=== PATIENT | male | born 1985 | race Caucasian/White ===

== ENCOUNTER 2016-12-03 16:37 | Emergency (ER) | payer OTHER ==
[2016-12-03] MEDS ORDERED: SODIUM CHLORIDE 0.9% 2,000 ML IV ONE (17:31)
[2016-12-03] MEDS ORDERED: KETOROLAC 30 MG/ML 1 ML VIAL IVP STA ×2 (17:31→19:13)
[2016-12-03] MEDS ORDERED: MORPHINE SULFATE 10 MG/ML SYRINGE IV ONE ×2 (17:31→19:13)
[2016-12-03 17:52] LABS: Basophils % (A) 0 %; CH 30.4; CHCM 34.2; Eosinophils # (A) 0.1 k/uL (0-0.7); Eosinophils % (A) 1 %; HCT 47.9 % (39.0-53.0); HDW 2.64; HGB 16.3 gm/dL (13.0-17.5); Luc # (Auto) 0.18; Luc % (Auto) 2; Lymphocytes # (A) 2.7 k/uL (1.0-4.8); Lymphocytes % (A) 31 %; MCH 30.3 pg (25.0-35.0); MCHC 34.1 g/dL (31.0-37.0); MCV 89.1 fL (80.0-100.0); Mean Platelet Volume 6.6; Monocytes # (A) 0.5 k/uL (0-1.0); Monocytes % (A) 5 %; Neutrophils # (A) 5.4 k/uL (1.3-7.7); Neutrophils % (A) 61 %; RBC 5.37 m/uL (4.30-5.90); RDW 13.5 % (11.5-15.5); WBC 8.8 k/uL (3.8-10.6); WBC (Perox) 8.65
[2016-12-03 18:01] LABS: ALT 73 U/L (21-72); AST 42 U/L (17-59); Alkaline Phosphatase 83 U/L (38-126); Anion Gap 13 mmol/L; Blood Urea Nitrogen 14 mg/dL (9-20); Calcium 9.7 mg/dL (8.4-10.2); Carbon Dioxide 21 mmol/L (22-30); Chloride 106 mmol/L (98-107); Glucose 95 mg/dL (74-99); Non-African American GFR(MDRD) >60 (>60 ml/min/1.73 sqM); Potassium 4.3 mmol/L (3.5-5.1); Sodium 140 mmol/L (137-145); Total Bilirubin 0.7 mg/dL (0.2-1.3)
--- NOTE | 2016-12-03 18:09 | ED ---
Abdominal Pain HPI - General Chief Complaint: Abdominal Pain Stated Complaint: Abd Pain Time Seen by Provider: 12/03/16 17:09 Source: patient Mode of arrival: wheelchair Limitations: no limitations - History of Present Illness Initial Comments: Patient is a 31-year-old male who presents with a chief complaint of right sided abdominal pain. His pain started this morning, is gradually gotten worse. Currently the patient says it is a very sharp gnawing type pain. He says that it is made him nauseous and he has vomited once. He cannot identify any inciting incident. Aggravating factors are lying flat, alleviating factors are none. Timing is constant. Patient states he has a history of kidney stones however this feels different. He denies any fevers chills, anorexia, diarrhea. He denies any blood in his urine. - Related Data Home Medications Medication Instructions Recorded Confirmed Ibuprofen [Motrin] 800 mg PO TID 06/23/14 06/27/14 oxyCODONE-APAP 7.5-325MG [Percocet 1 tab PO Q8HR PRN 06/23/14 06/27/14 7.5-325 mg] Allergies Allergy/AdvReac Type Severity Reaction Status Date / Time No Known Allergies Allergy Verified 12/03/16 16:41 Review of Systems ROS Statement: Those systems with pertinent positive or pertinent negative responses have been documented in the HPI. ROS Other: All systems not noted in ROS Statement are negative. Constitutional: Denies: fever Eyes: Denies: vision change ENT: Denies: congestion Respiratory: Denies: cough Cardiovascular: Denies: chest pain Endocrine: Denies: fatigue Gastrointestinal: Reports: abdominal pain, nausea, vomiting. Denies: diarrhea, constipation Genitourinary: Denies: dysuria Musculoskeletal: Denies: back pain Skin: Denies: rash Neurological: Denies: headache Past Medical History Past Medical History: GERD/Reflux, Sleep Apnea/CPAP/BIPAP Additional Past Medical History / Comment(s): DOES NOT USE CPAP. CHRONIC LOWER BACK PAIN, WITH SCIATIC NERVE PAIN. History of Any Multi-Drug Resistant Organisms: None Reported Past Surgical History: No Surgical Hx Reported Additional Past Surgical History / Comment(s): LOCAL ANESTHESIA FOR REMOVAL OF METAL FROM LEFT ARM Past Anesthesia/Blood Transfusion Reactions: No Reported Reaction Additional Past Anesthesia/Blood Transfusion Reaction / Comment(s): HAS NEVER HAD ANESTHESIA Past Psychological History: No Psychological Hx Reported Smoking Status: Current every day smoker Past Alcohol Use History: None Reported Past Drug Use History: None Reported - Past Family History Mother Family Medical History: No Reported History General Exam Limitations: no limitations General appearance: alert, in no apparent distress Head exam: Present: atraumatic, normocephalic Eye exam: Present: normal appearance Respiratory exam: Present: normal lung sounds bilaterally Cardiovascular Exam: Present: regular rate, normal rhythm, normal heart sounds GI/Abdominal exam: Present: soft, tenderness (Right lateral, and right lower quadrant.). Absent: distended Rectal exam: Present: deferred Extremities exam: Present: normal inspection Back exam: Absent: CVA tenderness (R), CVA tenderness (L) Neurological exam: Present: alert, oriented X3, CN II-XII intact, normal gait Psychiatric exam: Present: normal affect, normal mood Skin exam: Present: warm, dry, intact Course Vital Signs 12/03/16 16:39 Temperature 98.1 F Pulse Rate 85 Respiratory 20 Rate Blood Pressure 166/125 O2 Sat by Pulse 100 Oximetry Medical Decision Making - Medical Decision Making Patient presents with a chief complaint of right-sided abdominal pain. On initial evaluation, vital signs are stable. Patient is in no acute distress. He is having significant tenderness to palpation of the right lower quadrant. Patient does not have other symptoms that are congruent with appendicitis though it was considered. Patient does have a history of kidney stones. We'll get a urinalysis, and basic labs. We'll send patient for a noncontrast CT of the abdomen and pelvis. 7:10 PM Laboratory evaluation of this patient is unremarkable. There is no strong evidence of urinary tract infection, there is no elevation in his white count, renal function is stable. Computed tomography scan of the abdomen and pelvis without contrast identifies a 2 mm ureteral stone just distal to the UPJ I discussed care options with the patient, sure decision making was used to determine the patient will be discharged home with prescriptions for pain, and nausea medication. I'll prescribe Flomax. He was instructed that if his pain is not significantly better by this time to mom that he should return to the emergency department for reevaluation. At this time all questions are answered to the best of my ability. Patient is stable for discharge. - Lab Data Result diagrams: 12/03/16 17:15 12/03/16 17:15 Lab Results 12/03/16 12/03/16 12/03/16 Range/Units 17:15 17:15 17:52 WBC 8.8 (3.8-10.6) k/uL RBC 5.37 (4.30-5.90) m/uL Hgb 16.3 (13.0-17.5) gm/dL Hct 47.9 (39.0-53.0) % MCV 89.1 (80.0-100.0) fL MCH 30.3 (25.0-35.0) pg MCHC 34.1 (31.0-37.0) g/dL RDW 13.5 (11.5-15.5) % Plt Count 233 (150-450) k/uL Neutrophils % 61 % Lymphocytes % 31 % Monocytes % 5 % Eosinophils % 1 % Basophils % 0 % Neutrophils # 5.4 (1.3-7.7) k/uL Lymphocytes # 2.7 (1.0-4.8) k/uL Monocytes # 0.5 (0-1.0) k/uL Eosinophils # 0.1 (0-0.7) k/uL Basophils # 0.0 (0-0.2) k/uL Sodium 140 (137-145) mmol/L Potassium 4.3 (3.5-5.1) mmol/L Chloride 106 (98-107) mmol/L Carbon Dioxide 21 L (22-30) mmol/L Anion Gap 13 mmol/L BUN 14 (9-20) mg/dL Creatinine 1.16 (0.66-1.25) mg/dL Est GFR (MDRD) Af Amer >60 (>60 ml/min/1.73 sqM) Est GFR (MDRD) Non-Af >60 (>60 ml/min/1.73 sqM) Glucose 95 (74-99) mg/dL Calcium 9.7 (8.4-10.2) mg/dL Total Bilirubin 0.7 (0.2-1.3) mg/dL AST 42 (17-59) U/L ALT 73 H (21-72) U/L Alkaline Phosphatase 83 (38-126) U/L Total Protein 8.0 (6.3-8.2) g/dL Albumin 4.8 (3.5-5.0) g/dL Urine Color Yellow Urine Appearance Clear (Clear) Urine pH 6.0 (5.0-8.0) Ur Specific [place] 1.017 (1.001-1.035) Urine Protein Trace H (Negative) Urine Glucose (UA) Negative (Negative) Urine Ketones Negative (Negative) Urine Blood Large H (Negative) Urine Nitrite Negative (Negative) Urine Bilirubin Negative (Negative) Urine Urobilinogen <2.0 (<2.0) mg/dL Ur Leukocyte Esterase Negative (Negative) Urine RBC >182 H (0-5) /hpf Urine WBC 5 (0-5) /hpf Ur Squamous Epith Cells <1 (0-4) /hpf Urine Bacteria Rare H (None) /hpf Urine Mucus Rare H (None) /hpf Urine Yeast (Budding) Occasional H (None) /hpf Disposition Clinical Impression: Ureterolithiasis, Hematuria, Abdominal pain Disposition: HOME SELF-CARE Condition: Good Instructions: Ureteral Stones (ED) Referrals: None,Stated [Primary Care Provider] - 1-2 days
[2016-12-03 18:26] LABS: Appearance,Urine Clear (Clear); Bacteria,Urine Rare /hpf; Bilirubin,Urine Negative (Negative); Glucose,Urine (UA) Negative (Negative); Ketones,Urine Negative (Negative); Leukocyte Esterase,Urine Negative (Negative); Mucus,Urine Rare /hpf; Nitrite,Urine Negative (Negative); Particle Count 4294; Protein,Urine Trace (Negative); RBC,Urine >182 /hpf (0-5); Specific Gravity,Urine 1.017 (1.001-1.035); Squamous Epithelial Cell,Urine <1 /hpf (0-4); UA Billing (MACRO vs. MICRO) MICRO; Urobilinogen,Urine <2.0 mg/dL (<2.0); WBC,Urine 5 /hpf (0-5)
--- NOTE | 2016-12-03 18:59 | CT ---
EXAMINATION TYPE: CT renal stones wo con DATE OF EXAM: 12/03/2016 COMPARISON: NONE HISTORY: Right lower quadrant pain. CT DLP: 1052.70 mGycm Examination of the solid and hollow viscera is limited given the lack of contrast. FINDINGS: LUNG BASES: No evidence for nodule. No evidence for infiltrate. LIVER/GB: L stone is noted. No space-occupying hepatic lesion. PANCREAS: No pancreatic mass identified. No inflammatory process seen. SPLEEN: No evidence for splenomegaly. No intrasplenic lesions seen. ADRENALS: No adrenal nodules identified. No evidence for thickening. KIDNEYS: 2 mm obstructing calculus proximal right ureter just distal to the UPJ. There is mild associ ated hydronephrosis. No additional calculi identified. BOWEL: Appendix has a normal appearance. No evidence of bowel obstruction. No inflammatory process. Lymph nodes: No evidence for adenopathy greater than 1 cm. Abdominal aorta: Atheromatous changes seen. No evidence for aneurysm. Genital organs: No significant abnormality. Other: No significant abnormality. IMPRESSION: 2 mm obstructing calculus proximal right ureter just distal to the UPJ. There is mild associated hydr onephrosis.
[2016-12-03] MEDS ORDERED: ONDANSETRON 4 MG/2 ML VIAL IVP STA (19:13)
[2016-12-03 20:21] VITALS: BP 150/100; PULSE 79; RESP 16; TEMP 98
== END 2016-12-03 20:19 | disposition home or self-care (01) ==
LOC: EC 16:37
DX: N20.1 Calculus of ureter (principal); G89.29 Other chronic pain; F17.200 Nicotine dependence, unspecified, uncomplicated; Z79.1 Long term (current) use of non-steroidal anti-inflammatories (NSAID); Z87.442 Personal history of urinary calculi
CPT/HCPCS: 99284 ×2; 96374 ×2; 96375 ×3; 96376 ×2; 96361 ×3; 36415; 80053; 85025; 81001; 74150; J2270; J2405; J1885

== ENCOUNTER → 2017-01-07 | Outpatient (CLI) | payer OTHER ==
--- NOTE | 2017-01-07 14:24 | MR ---
EXAMINATION TYPE: MR lumbar spine wo/w con DATE OF EXAM: 01/07/2017 COMPARISON: 05/02/2014 HISTORY: [place] rt side TECHNIQUE: Multiplanar, multisequence images of the lumbar spine were acquired utilizing 13 mL intravenous Gadav ist gadolinium contrast. T12-L1: Left eccentric broad-based disc bulge is seen with disc desiccation and Schmorl's node of the superior endplate of L1. Neural foramen and spinal canal are patent. L1-L2: Disc desiccation and a small broad-based disc bulge. No disc herniation. No canal stenosis i s present. Foramina are patent bilaterally. L2-L3: There is a small broad-based disc bulge with flattening of the usual disc posterior convexity and mild ligament of flavum buckling. No neural foraminal narrowing or spinal canal stenosis. L3-L4: There is a slightly left eccentric broad-based disc bulge creating mild left neural foraminal narrowing. Right neural foramen remains patent as is the spinal canal. Ligamentum flavum buckling is mild. L4-L5: There is a small broad-based disc bulge, mild facet arthropathy, and mild ligamentum flavum bu ckling without neural foraminal narrowing or spinal canal stenosis. L5-S1: There is redemonstration of a large central disc herniation superimposed upon a right eccentri c broad-based disc bulge with central annular tear and minimal mass effect upon the ventral thecal sa c. This results in mild spinal canal stenosis and moderate bilateral neural foraminal narrowing abutt ing both exiting L5 nerve roots. Forming S1 nerve roots appear unaffected. There has been partial dis cectomy of the right paracentral previously seen extruded disc material. Lumbar vertebral bodies maintain normal vertebral body heights and alignment. Reactive marrow changes seen of the L1 vertebral body from Schmorl's node formation. Otherwise bone marrow is within normal limits. There is no abnormal postcontrast enhancement. No evidence of epidural fibrosis. Disc herniat ion at L5-S1 does minimally enhance on axial images. IMPRESSION: 1. Resection of the previously seen extruded portion of a right paracentral disc herniation at L5-S1 comparison to the prior exam with residual central disc herniation creating mild spinal canal stenosi s and moderate bilateral neural foraminal narrowing. No evidence of epidural fibrosis. 2. Multilevel degenerative disc disease, similar to the prior exam and mild in degree.
== END | disposition home or self-care (01) ==
LOC: RADMRIMAIN 10:39
PROVIDERS: ATTEND Physician Assistant Medical
DX: M48.061 Spinal stenosis, lumbar region without neurogenic claudication (principal); M99.73 Connective tissue and disc stenosis of intervertebral foramina of lumbar region; M51.36 Other intervertebral disc degeneration, lumbar region; M51.27 Other intervertebral disc displacement, lumbosacral region; M54.31 Sciatica, right side
CPT/HCPCS: 72158; A9581

== ENCOUNTER → 2018-03-10 | Outpatient (CLI) | payer OTHER ==
--- NOTE | 2018-03-10 11:50 | XR ---
EXAMINATION TYPE: XR wrist complete LT DATE OF EXAM: 03/10/2018 CLINICAL HISTORY: No known injury. Anterior proximal forearm pain. TECHNIQUE: Frontal, lateral and oblique images of the left wrist are obtained. COMPARISON: None FINDINGS: There is no acute fracture/dislocation evident in the left wrist. The joint spaces in the left wrist appear within normal limits. The overlying soft tissue appears unremarkable. IMPRESSION: There is no acute fracture or dislocation in the left wrist. MRI could evaluate the liga ments and tendons if there is further concern.
--- NOTE | 2018-03-10 12:29 | XR ---
EXAMINATION TYPE: XR cervical spine comp DATE OF EXAM: 03/10/2018 TECHNIQUE: Frontal, lateral, oblique, swimmers, and open mouth view of the cervical spine are adame dAby HISTORY: [id number] COMPARISON: None FINDINGS: The cervical spine is visualized in its entirety from C1 thru the top of T1 level, it is s atisfactory in alignment without evidence of acute fracture or dislocation. The pre-vertebral soft t issue appears within normal limits. The C1-C2 articulation is within normal limits on the open mouth view. There are small anterior osteophytes at C5 and C6. There is slight straightening of the usual cervica l lordosis. Oblique images demonstrate no evidence of radiographic neural foraminal narrowing. IMPRESSION: No acute fracture or dislocation is seen in the cervical spine. Minimal degenerative traci nges at C5 and C6. No neural foraminal narrowing radiographically. However given the patient's sympto ms MRI could evaluate for disc herniation.
== END ==
LOC: RADXRYALE 11:09
PROVIDERS: ATTEND Physician Assistant Medical
DX: M47.812 Spondylosis without myelopathy or radiculopathy, cervical region (principal); M25.532 Pain in left wrist
CPT/HCPCS: 72050

== ENCOUNTER → 2018-03-26 | Outpatient (CLI) | payer OTHER ==
--- NOTE | 2018-03-26 08:52 | MR ---
MRI CERVICAL SPINE: CLINICAL HISTORY: Cervicalgia and left arm pain per order. Headache with upper back pain causing left arm numbness and pain or weakness in both arms per patient. TECHNIQUE: Multiplanar, multisequence imaging of the cervical spine is performed without IV contrast. COMPARISON: Cervical spine x-ray March 10, 2018 FINDINGS: Sagittal images of the cervical spine show the craniocervical junction to appear within nor mal limits. The cervical and upper thoracic spinal cord is normal in course, caliber, and signal. Th ere is slight grade 1 retrolisthesis of 5 and C5 on C6. The vertebral body heights are normal. Ther e is multilevel disc desiccation with mild disc space narrowing C4-C5 and C5-C6 levels posterior disc herniations are seen at these levels as well as at C6-C7 level effacing anterior thecal sac on sagit beth images. The bone marrow signal intensity is within normal limits. There is partial visualization of loss of aeration posterior inferior right maxillary sinus favoring eccentric mucosal thickening sa gittal image 3. Axial images show the C2-C3 level to appear within normal limits. Axial images at C3-C4 level show broad-based posterior disc protrusion causing asymmetric mild right greater than left bilateral neural foraminal narrowing. There is right paracentral protrusion compone nt effacing anterior thecal sac on axial image 47. Axial images at the C4-C5 level show broad-based left paracentral disc protrusion effacing anterolate ral thecal sac, there is mild bilateral neural foraminal narrowing noted. Axial images at C5-C6 level show broad-based posterior disc protrusion effacing anterior thecal sac u p to ventral surface of spinal cord, there is fairly advanced left-sided neural foraminal narrowing a nd [id number] right-sided neural foraminal narrowing noted. Axial images at the C6-C7 level show small lobulated posterior disc protrusion effacing anterior thec al sac, bilateral neural foramina are patent. Axial images at C7-T1 level are felt within normal limits. IMPRESSION: Multilevel degenerative changes in the cervical spine as detailed above, most prominent h erniation is noted C5-C6 level.
== END | disposition home or self-care (01) ==
LOC: RADMRIMAIN 07:42
PROVIDERS: ATTEND Physician Assistant Medical
DX: M50.222 Other cervical disc displacement at C5-C6 level (principal); M47.812 Spondylosis without myelopathy or radiculopathy, cervical region; M79.602 Pain in left arm
CPT/HCPCS: 72141

== ENCOUNTER 2018-05-22 07:26 | Emergency (ER) | payer OTHER ==
[2018-05-22 07:35] VITALS: RESP 18
[2018-05-22] MEDS ORDERED: MORPHINE SULFATE 4 MG/ML SYRINGE IV STA (07:51)
[2018-05-22] MEDS ORDERED: ONDANSETRON 4 MG/2 ML VIAL IVP STA (07:51)
[2018-05-22] MEDS ORDERED: SODIUM CHLORIDE 0.9% 1,000 ML IV STA (07:51)
--- NOTE | 2018-05-22 07:55 | ED ---
General Adult HPI - General Chief complaint: Abdominal Pain Stated complaint: Flank pain/vomiting Time Seen by Provider: 05/22/18 07:46 Source: patient Mode of arrival: ambulatory Limitations: no limitations - History of Present Illness Initial comments: Dictation was produced using [employer] dictation software. please excuse any grammatical, word or spelling errors. Chief Complaint: 32-year-old male past medical history of sleep apnea, GERD presents with right lower quadrant abdominal pain. History of Present Illness: 32-year-old male past medical history of cervical and lumbar myelopathy. Patient reports that since yesterday he started off having some feelings of constipation and periumbilical pain. He states that last night his pain got progressively worse radiating down to his right lower quadrant. Patient denies any history of abdominal surgery. Denies any nausea or vomiting. No fever, chills or night sweats. States the pain is severe. Patient does have a history of nephrolithiasis however he states his pain is usually not this severe. The ROS documented in this emergency department record has been reviewed and confirmed by me. Those systems with pertinent positive or negative responses have been documented in the HPI. All other systems are other negative and/or noncontributory. PHYSICAL EXAM: General Impression: Alert and oriented x3, acute distress secondary to pain HEENT: Normocephalic atraumatic, extra-ocular movements intact, pupils equal and reactive to light bilaterally, mucous membranes moist. Cardiovascular: Heart regular rate and rhythm, S1&S2 audible, no murmurs, rubs or gallops Chest: Lungs clear to auscultation bilaterally, no rhonchi, no wheeze, no rales Abdomen: Hypoactive bowel sounds, regular quadrant tenderness at McBurney's point, positive rebound tenderness. Musculoskeletal: Pulses present and equal in all extremities, no peripheral edema Motor: no focal deficits noted Neurological: CN II-XII grossly intact, no focal motor or sensory deficits noted Skin: Intact with no visualized rashes ED course: 32-year-old male presents with chief complaint of abdominal pain. Vital signs upon arrival are within acceptable limits. There is strong clinical suspicion of acute appendicitis versus nephrolithiasis. Laboratory evaluation obtained. CBC, metabolic panel is unremarkable. Urinalysis is positive for red blood cells. There are a few white cells. Urine culture sent. Patient given IV analgesia and IV fluids. Computed tomography scan of the abdomen and pelvis was obtained. There is a gallstone and a 2 mm calculus at the level of the Right Ureter Causing Mild Hydronephrosis. Appendix Is Visualized and Appears Normal. Patient's Clinical Presentation Consistent with Obstructing nephrolithiasis. Patient reevaluated and has improvement of symptoms. Is likely the patient just passed a stone. Patient given urinary hat . He is given prescription for by mouth analgesia. Patient given referral to urology. Advised to follow up. - Related Data Home Medications Medication Instructions Recorded Confirmed Gabapentin [Neurontin] 300 mg PO HS 05/22/18 05/22/18 HYDROcodone/APAP 10-325MG [[place] 1 tab PO Q6HR PRN 05/22/18 05/22/18 10-325] Losartan Potassium 50 mg PO HS 05/22/18 05/22/18 Multivitamins, Thera [Multivitamin 1 tab PO DAILY 05/22/18 05/22/18 (formulary)] Previous Rx's Medication Instructions Recorded Ketorolac [Toradol] 30 mg IM Q6H PRN #12 vial 05/22/18 Allergies Allergy/AdvReac Type Severity Reaction Status Date / Time No Known Allergies Allergy Verified 05/22/18 08:11 Review of Systems ROS Statement: Those systems with pertinent positive or pertinent negative responses have been documented in the HPI. ROS Other: All systems not noted in ROS Statement are negative. Past Medical History Past Medical History: GERD/Reflux, Sleep Apnea/CPAP/BIPAP Additional Past Medical History / Comment(s): DOES NOT USE CPAP. CHRONIC LOWER BACK PAIN, WITH SCIATIC NERVE PAIN. History of Any Multi-Drug Resistant Organisms: None Reported Past Surgical History: No Surgical Hx Reported Additional Past Surgical History / Comment(s): LOCAL ANESTHESIA FOR REMOVAL OF METAL FROM LEFT ARM Past Anesthesia/Blood Transfusion Reactions: No Reported Reaction Additional Past Anesthesia/Blood Transfusion Reaction / Comment(s): HAS NEVER HAD ANESTHESIA Past Psychological History: No Psychological Hx Reported Smoking Status: Current every day smoker Past Alcohol Use History: None Reported Past Drug Use History: None Reported - Past Family History Mother Family Medical History: No Reported History General Exam Limitations: no limitations Course Vital Signs 05/22/18 07:32 Temperature 98.1 F Pulse Rate 80 Respiratory 18 Rate Blood Pressure 158/107 O2 Sat by Pulse 99 Oximetry Medical Decision Making - Lab Data Result diagrams: 05/22/18 08:14 05/22/18 08:14 Lab Results 05/22/18 05/22/18 05/22/18 Range/Units 08:14 08:14 08:14 WBC 8.3 (3.8-10.6) k/uL RBC 5.02 (4.30-5.90) m/uL Hgb 14.4 (13.0-17.5) gm/dL Hct 44.0 (39.0-53.0) % MCV 87.8 (80.0-100.0) fL MCH 28.8 (25.0-35.0) pg MCHC 32.8 (31.0-37.0) g/dL RDW 13.8 (11.5-15.5) % Plt Count 214 (150-450) k/uL Neutrophils % 51 % Lymphocytes % 38 % Monocytes % 7 % Eosinophils % 1 % Basophils % 1 % Neutrophils # 4.3 (1.3-7.7) k/uL Lymphocytes # 3.1 (1.0-4.8) k/uL Monocytes # 0.6 (0-1.0) k/uL Eosinophils # 0.1 (0-0.7) k/uL Basophils # 0.1 (0-0.2) k/uL Sodium 142 (137-145) mmol/L Potassium 4.0 (3.5-5.1) mmol/L Chloride 104 (98-107) mmol/L Carbon Dioxide 28 (22-30) mmol/L Anion Gap 10 mmol/L BUN 17 (9-20) mg/dL Creatinine 1.09 (0.66-1.25) mg/dL Est GFR (CKD-EPI)AfAm >90 (>60 ml/min/1.73 sqM) Est GFR (CKD-EPI)NonAf 88 (>60 ml/min/1.73 sqM) Glucose 139 H (74-99) mg/dL Plasma Lactic Acid Javier 1.5 (0.7-2.0) mmol/L Calcium 10.1 (8.4-10.2) mg/dL Total Bilirubin 0.7 (0.2-1.3) mg/dL AST 36 (17-59) U/L ALT 58 (21-72) U/L Alkaline Phosphatase 66 (38-126) U/L Total Protein 7.7 (6.3-8.2) g/dL Albumin 4.5 (3.5-5.0) g/dL Lipase 67 (23-300) U/L Urine Color Urine Appearance (Clear) Urine pH (5.0-8.0) Ur Specific [place] (1.001-1.035) Urine Protein (Negative) Urine Glucose (UA) (Negative) Urine Ketones (Negative) Urine Blood (Negative) Urine Nitrite (Negative) Urine Bilirubin (Negative) Urine Urobilinogen (<2.0) mg/dL Ur Leukocyte Esterase (Negative) Urine RBC (0-5) /hpf Urine WBC (0-5) /hpf Ur Squamous Epith Cells (0-4) /hpf Urine Bacteria (None) /hpf Urine Mucus (None) /hpf Urine Yeast (Budding) (None) /hpf 05/22/18 Range/Units 08:14 WBC (3.8-10.6) k/uL RBC (4.30-5.90) m/uL Hgb (13.0-17.5) gm/dL Hct (39.0-53.0) % MCV (80.0-100.0) fL MCH (25.0-35.0) pg MCHC (31.0-37.0) g/dL RDW (11.5-15.5) % Plt Count (150-450) k/uL Neutrophils % % Lymphocytes % % Monocytes % % Eosinophils % % Basophils % % Neutrophils # (1.3-7.7) k/uL Lymphocytes # (1.0-4.8) k/uL Monocytes # (0-1.0) k/uL Eosinophils # (0-0.7) k/uL Basophils # (0-0.2) k/uL Sodium (137-145) mmol/L Potassium (3.5-5.1) mmol/L Chloride (98-107) mmol/L Carbon Dioxide (22-30) mmol/L Anion Gap mmol/L BUN (9-20) mg/dL Creatinine (0.66-1.25) mg/dL Est GFR (CKD-EPI)AfAm (>60 ml/min/1.73 sqM) Est GFR (CKD-EPI)NonAf (>60 ml/min/1.73 sqM) Glucose (74-99) mg/dL Plasma Lactic Acid Javier (0.7-2.0) mmol/L Calcium (8.4-10.2) mg/dL Total Bilirubin (0.2-1.3) mg/dL AST (17-59) U/L ALT (21-72) U/L Alkaline Phosphatase (38-126) U/L Total Protein (6.3-8.2) g/dL Albumin (3.5-5.0) g/dL Lipase (23-300) U/L Urine Color Light Red Urine Appearance Cloudy (Clear) Urine pH 5.5 (5.0-8.0) Ur Specific [place] 1.023 (1.001-1.035) Urine Protein 1+ H (Negative) Urine Glucose (UA) Negative (Negative) Urine Ketones Trace H (Negative) Urine Blood Large H (Negative) Urine Nitrite Negative (Negative) Urine Bilirubin Negative (Negative) Urine Urobilinogen <2.0 (<2.0) mg/dL Ur Leukocyte Esterase Negative (Negative) Urine RBC >182 H (0-5) /hpf Urine WBC 18 H (0-5) /hpf Ur Squamous Epith Cells <1 (0-4) /hpf Urine Bacteria Many H (None) /hpf Urine Mucus Occasional H (None) /hpf Urine Yeast (Budding) Few H (None) /hpf Disposition Clinical Impression: Kidney stone Disposition: HOME SELF-CARE Condition: Good Instructions (If sedation given, give patient instructions): Kidney Stones (ED) Prescriptions: Ketorolac [Toradol] 30 mg IM Q6H PRN #12 vial PRN Reason: Pain Is patient prescribed a controlled substance at d/c from ED?: No Referrals: Benjy Guzman MD [STAFF PHYSICIAN] - 1-2 days Time of Disposition: 10:01
[2018-05-22 08:40] LABS: RBC 5.02 m/uL (4.30-5.90); WBC 8.3 k/uL (3.8-10.6)
[2018-05-22 08:41] LABS: Basophils # (A) 0.1 k/uL (0-0.2); Basophils % (A) 1 %; Eosinophils # (A) 0.1 k/uL (0-0.7); Eosinophils % (A) 1 %; HGB 14.4 gm/dL (13.0-17.5); Lymphocytes # (A) 3.1 k/uL (1.0-4.8); Lymphocytes % (A) 38 %; MCH 28.8 pg (25.0-35.0); MCHC 32.8 g/dL (31.0-37.0); MCV 87.8 fL (80.0-100.0); Mean Platelet Volume 6.7; Monocytes # (A) 0.6 k/uL (0-1.0); Monocytes % (A) 7 %; Neutrophils # (A) 4.3 k/uL (1.3-7.7); Neutrophils % (A) 51 %; Platelet Count 214 k/uL (150-450); RDW 13.8 % (11.5-15.5)
[2018-05-22 08:54] LABS: Albumin 4.5 g/dL (3.5-5.0); Blood Urea Nitrogen 17 mg/dL (9-20); Calcium 10.1 mg/dL (8.4-10.2); Chloride 104 mmol/L (98-107); Glucose 139 mg/dL (74-99); Sodium 142 mmol/L (137-145); Total Protein 7.7 g/dL (6.3-8.2)
[2018-05-22 08:57] LABS: Appearance,Urine Cloudy (Clear); Bacteria,Urine Many /hpf; Bilirubin,Urine Negative (Negative); Blood,Urine Large (Negative); Budding Yeast,Urine Few /hpf; Color,Urine Light Red; Glucose,Urine (UA) Negative (Negative); Ketones,Urine Trace (Negative); Leukocyte Esterase,Urine Negative (Negative); Mucus,Urine Occasional /hpf; Nitrite,Urine Negative (Negative); PH, Urine 5.5 (5.0-8.0); Protein,Urine 1+ (Negative); RBC,Urine >182 /hpf (0-5); Specific Gravity,Urine 1.023 (1.001-1.035); Squamous Epithelial Cell,Urine <1 /hpf (0-4); Urobilinogen,Urine <2.0 mg/dL (<2.0)
[2018-05-22] MEDS ORDERED: MORPHINE SULFATE 4 MG/ML SYRINGE IVP STA (08:57)
[2018-05-22 09:02] LABS: ALT 58 U/L (21-72); AST 36 U/L (17-59); Alkaline Phosphatase 66 U/L (38-126); Anion Gap 10 mmol/L; Carbon Dioxide 28 mmol/L (22-30); Lipase 67 U/L (23-300); Total Bilirubin 0.7 mg/dL (0.2-1.3)
--- NOTE | 2018-05-22 09:12 | CT ---
EXAMINATION TYPE: CT abdomen pelvis w con DATE OF EXAM: 05/22/2018 REFERENCE: Previous study dated 12/03/2016 HISTORY: abdominal pain HISTORY: RLQ pain, nausea, vomiting, diarrhea, constipation. REFERENCE: NONE CT DLP: 1054.4 mGy Automated exposure control for dose reduction was used. TECHNIQUE: Helical acquisition through the abdomen and pelvis was obtained following the oral ingesti on of without Oral Contrast and following intravenous administration of 100 mL of Isovue 300. The latrice a was reformatted in axial, coronal and sagittal projections. Delayed images were not obtained due to the patient's urgency to urinate. FINDINGS: There is dependent atelectasis in the dependent portions of the lungs. There is no pleural or pericardial fluid. The heart is not enlarged. Within the abdomen, the liver is prominent measuring 18.6 cm. It is low in attenuation and likely fat ty infiltrated. The spleen is unremarkable. There is a 1.4 cm gallstone present within the gallbladde r. Both adrenal glands are normal. Both kidneys demonstrate function. There is mild right-sided hydronephrosis. There is a questionable 1 mm calculus at the level of the trigone of the bladder on the right. The pancreas is unremarkable. There is no significant retroperitoneal, iliac or inguinal adenopathy. The bladder is not distended. There is some thickening of the left side of the colon. The appendix is normal. Small bowel loops are normal. There is no free fluid and no free air identified. No bony lesion is seen. IMPRESSION: 1. 1 TO 2 MM CALCULUS AT THE LEVEL OF THE TRIGONE OF THE BLADDER ON THE RIGHT CAUSING MILD HYDRONEPHR OSIS ON THE RIGHT. 2. MILD HEPATOMEGALY AND FATTY INFILTRATION OF THE LIVER. 3. THICKENING OF THE LEFT SIDE OF THE COLON. PLEASE CORRELATE FOR COLITIS. 4. CHOLELITHIASIS.
[2018-05-22] MEDS ORDERED: KETOROLAC 30 MG/ML 1 ML VIAL IVP STA (09:23)
[2018-05-22 10:36] VITALS: BP 140/96; PULSE 91; TEMP 98
== END 2018-05-22 10:25 | disposition home or self-care (01) ==
LOC: SUPCPDRO 07:26 → EC 07:26
DX: N13.2 Hydronephrosis with renal and ureteral calculous obstruction (principal); K80.20 Calculus of gallbladder without cholecystitis without obstruction; G89.29 Other chronic pain; F17.200 Nicotine dependence, unspecified, uncomplicated; Z79.899 Other long term (current) drug therapy; Z87.19 Personal history of other diseases of the digestive system
CPT/HCPCS: 36415; 80053; 83605; 83690; 85025; 81001; 87086; 74177; 99284; 96374; 96375 ×2; 96376; 96361 ×2; J2270; J2405; J1885; Q9967

== ENCOUNTER 2019-01-02 14:23 | Emergency (ER) | payer OTHER ==
[2019-01-02 14:45] VITALS: TEMP 98
[2019-01-02] MEDS ORDERED: TOBRAMYCIN 0.3% OPHTH DROPS 5 ML BTL LEFT EYE STA (14:48)
[2019-01-02] MEDS ORDERED: PROPARACAINE 0.5% OPHTH DROPS 15 ML BTL LEFT EYE STA (14:48)
--- NOTE | 2019-01-02 14:59 | ED ---
Eye Problem HPI - General Chief complaint: Eye Problems Stated complaint: Eye injury Time Seen by Provider: 01/02/19 14:48 Source: patient, RN notes reviewed Mode of arrival: ambulatory Limitations: no limitations - History of Present Illness Initial comments: 33-year-old male presents emergency Department chief complaint left eye pain. Patient states that he was walking and states he cat tail poked in his left eye. Patient states that slowly become more irritated. Patient's tetanus is up-to-date. Denies any blurred vision but states that it's very sensitive, tearing. He does not take any medications for it. Denies any fevers or chills. Denies any prior ocular issues. - Related Data Home Medications Medication Instructions Recorded Confirmed Gabapentin [Neurontin] 300 mg PO HS 05/22/18 05/22/18 HYDROcodone/APAP 10-325MG [[place] 1 tab PO Q6HR PRN 05/22/18 05/22/18 10-325] Losartan Potassium 50 mg PO HS 05/22/18 05/22/18 Multivitamins, Thera [Multivitamin 1 tab PO DAILY 05/22/18 05/22/18 (formulary)] Previous Rx's Medication Instructions Recorded Ketorolac [Toradol] 30 mg IM Q6H PRN #12 vial 05/22/18 Allergies Allergy/AdvReac Type Severity Reaction Status Date / Time No Known Allergies Allergy Verified 01/02/19 14:41 Review of Systems ROS Statement: Those systems with pertinent positive or pertinent negative responses have been documented in the HPI. ROS Other: All systems not noted in ROS Statement are negative. Past Medical History Past Medical History: GERD/Reflux, Sleep Apnea/CPAP/BIPAP Additional Past Medical History / Comment(s): DOES NOT USE CPAP. CHRONIC LOWER BACK PAIN, WITH SCIATIC NERVE PAIN. History of Any Multi-Drug Resistant Organisms: None Reported Past Surgical History: No Surgical Hx Reported Additional Past Surgical History / Comment(s): LOCAL ANESTHESIA FOR REMOVAL OF M ETAL FROM LEFT ARM Past Anesthesia/Blood Transfusion Reactions: No Reported Reaction Additional Past Anesthesia/Blood Transfusion Reaction / Comment(s): HAS NEVER HAD ANESTHESIA Past Psychological History: No Psychological Hx Reported Smoking Status: Current every day smoker Past Alcohol Use History: None Reported Past Drug Use History: None Reported - Past Family History Mother Family Medical History: No Reported History General Exam Limitations: no limitations General appearance: alert, in no apparent distress Head exam: Present: atraumatic, normocephalic, normal inspection Eye exam: Present: normal appearance, PERRL, EOMI, conjunctival injection (Moderate left), other (Patient had relief of symptoms with proparacaine drops. Fluorescein uptake with Wood's lamp noted in the central corneal region). Absent: scleral icterus, periorbital swelling ENT exam: Present: normal exam, normal oropharynx, mucous membranes moist, TM's normal bilaterally Neck exam: Present: normal inspection, full ROM. Absent: tenderness, m eningismus, lymphadenopathy Respiratory exam: Present: normal lung sounds bilaterally. Absent: respiratory distress, wheezes, rales, rhonchi, stridor Cardiovascular Exam: Present: regular rate, normal rhythm, normal heart sounds. Absent: systolic murmur, diastolic murmur, rubs, gallop, clicks Course Vital Signs 01/02/19 14:42 Temperature 98.0 F Pulse Rate 97 Respiratory 16 Rate Blood Pressure 151/96 O2 Sat by Pulse 98 Oximetry Medical Decision Making - Medical Decision Making Patient is a large corneal abrasion. Patient did have relief with proparacaine. Patient advised to stay in a dark environment. Patient will follow-up with admin dir tomorrow. Tetanus up-to-date. Patient was started Tobrex eye drops Disposition Clinical Impression: Corneal abrasion Disposition: HOME SELF-CARE Condition: Stable Instructions (If sedation given, give patient instructions): Corneal Abrasion (ED) Additional Instructions: Please return to the Emergency Department if symptoms worsen or any other concerns. Use Tobrex eyedrops 1 drop to left eye every 4 hours while awake Is patient prescribed a controlled substance at d/c from ED?: No Referrals: Ariel Castellon DO [Primary Care Provider] - 1-2 days Aleah Cook MD [STAFF PHYSICIAN] - 1-2 days Time of Disposition: 15:10
[2019-01-02] MEDS ORDERED: ACET/COD 300 MG/30 MG STARTER PACK 6 TAB BTL PO STA (15:07)
[2019-01-02] MEDS ORDERED: IBUPROFEN 600 MG TAB PO STA (15:07)
[2019-01-02 15:44] VITALS: BP 141/92; PULSE 87; RESP 18
== END 2019-01-02 15:44 | disposition home or self-care (01) ==
LOC: EC 14:23
DX: S05.02XA Injury of conjunctiva and corneal abrasion without foreign body, left eye, initial encounter (principal); G47.30 Sleep apnea, unspecified; F17.200 Nicotine dependence, unspecified, uncomplicated; Z79.899 Other long term (current) drug therapy; W55.09XA Other contact with cat, initial encounter; Y93.01 Activity, walking, marching and hiking
CPT/HCPCS: 99283

== ENCOUNTER 2019-01-20 23:11 | Emergency (ER) | payer OTHER ==
[2019-01-20] MEDS ORDERED: PROPARACAINE 0.5% OPHTH DROPS 15 ML BTL LEFT EYE STA (23:19)
--- NOTE | 2019-01-21 00:23 | ED ---
General Adult HPI - General Source: patient Mode of arrival: ambulatory Limitations: no limitations <Khadar Nick - Last Filed: 01/21/19 00:21> <Akua Fitzgerald - Last Filed: 01/21/19 02:19> - General Chief complaint: Recheck/Abnormal Lab/Rx Stated complaint: L Eye Pain Time Seen by Provider: 01/20/19 23:16 - History of Present Illness Initial comments: Patient is a 33-year-old male presenting to the emergency department with a chief complaint of left eye pain. Patient was seen in the ED 2 weeks ago and diagnosed with a corneal abrasion. Patient was prescribed tobramycin drops. Patient reports she finished a medication as directed but about 3 days ago he began developing pain in the upper eyelid. Patient reports he has difficulty opening his eyelid in the morning but denies any discharge. Patient states there is some blurry vision as well. 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 Patient reports there is pain behind the eye. Patient does report some pain with extraocular movements. (Khadar Nick) - Related Data Home Medications Medication Instructions Recorded Confirmed Gabapentin [Neurontin] 300 mg PO HS 05/22/18 05/22/18 HYDROcodone/APAP 10-325MG [[place] 1 tab PO Q6HR PRN 05/22/18 05/22/18 10-325] Losartan Potassium 50 mg PO HS 05/22/18 05/22/18 Multivitamins, Thera [Multivitamin 1 tab PO DAILY 05/22/18 05/22/18 (formulary)] Previous Rx's Medication Instructions Recorded Ketorolac [Toradol] 30 mg IM Q6H PRN #12 vial 05/22/18 Cephalexin [Keflex] 500 mg PO Q6HR 7 Days #28 cap 01/21/19 Propylene Glycol/Peg 400/Pf 1 dropper LEFT EYE Q6H #60 dropper 01/21/19 [Systane 0.3-0.4% Eye Drops] Allergies Allergy/AdvReac Type Severity Reaction Status Date / Time No Known Allergies Allergy Verified 01/20/19 23:12 Review of Systems ROS Other: All systems not noted in ROS Statement are negative. <Khadar Nick - Last Filed: 01/21/19 00:21> ROS Other: All systems not noted in ROS Statement are negative. <Akua Fitzgerald - Last Filed: 01/21/19 02:19> ROS Statement: Those systems with pertinent positive or pertinent negative responses have been documented in the HPI. Past Medical History Past Medical History: GERD/Reflux, Sleep Apnea/CPAP/BIPAP Additional Past Medical History / Comment(s): DOES NOT USE CPAP. CHRONIC LOWER BACK PAIN, WITH SCIATIC NERVE PAIN. History of Any Multi-Drug Resistant Organisms: None Reported Past Surgical History: No Surgical Hx Reported Additional Past Surgical History / Comment(s): LOCAL ANESTHESIA FOR REMOVAL OF METAL FROM LEFT ARM Past Anesthesia/Blood Transfusion Reactions: No Reported Reaction Additional Past Anesthesia/Blood Transfusion Reaction / Comment(s): HAS NEVER HAD ANESTHESIA Past Psychological History: No Psychological Hx Reported Smoking Status: Current every day smoker Past Alcohol Use History: None Reported Past Drug Use History: None Reported - Past Family History Mother Family Medical History: No Reported History <Khadar Nick - Last Filed: 01/21/19 00:21> General Exam Limitations: no limitations General appearance: alert, in no apparent distress Head exam: Present: atraumatic, normocephalic, normal inspection Eye exam: Present: normal appearance, PERRL, EOMI, conjunctival injection (Mild conjunctival injection in the left eye), periorbital swelling (Mild swelling in the upper eyelid. No foreign body detected.), other (Fluorescent stain is showing a central corneal abrasion directly over the visual field.). Absent: scleral icterus, nystagmus, periorbital tenderness Pupils: Present: normal accommodation ENT exam: Present: normal exam, normal oropharynx, mucous membranes moist Neck exam: Present: normal inspection, full ROM Respiratory exam: Present: normal lung sounds bilaterally Cardiovascular Exam: Present: regular rate, normal rhythm, normal heart sounds Extremities exam: Present: normal inspection, full ROM Back exam: Present: normal inspection, full ROM Neurological exam: Present: alert, oriented X3 Psychiatric exam: Present: normal affect, normal mood Skin exam: Present: warm, dry, intact, normal color <Khadar Nick - Last Filed: 01/21/19 00:21> Course Vital Signs 01/20/19 23:12 Temperature 98.4 F Pulse Rate 84 Respiratory 18 Rate Blood Pressure 159/98 O2 Sat by Pulse 97 Oximetry Medical Decision Making <Akua Fitzgerald - Last Filed: 01/21/19 02:19> - Medical Decision Making Patient care was signed out to me, patient had been seen and evaluated by Khadar JEREZ as well as Dr. Espinal,. There are findings of a recurrent corneal abrasion, at the time of sign out a computed tomography scan of the orbits was pending to evaluate for any underlying abscess as the patient was having significant pain in the eyelid. Computed tomography scan results with no acute findings. Upon my reevaluation patient was again having some pain in the eye as his proparacaine had worn off. He did have some mild erythema of the upper eyelid of the left eye, patient will be treated with erythromycin ointment, prescribed preservative-free eye lubricating drops and oral Keflex for possible early preseptal cellulitis. Patient is scheduled to see Dr. Whiteside on Thursday, I advised that I will contact the office early in the morning and see if I can get him an earlier appointment. Return parameters were discussed patient was discharged home in stable condition. (Akua Fitzgerald) Disposition <Khadar Nick - Last Filed: 01/21/19 00:21> Is patient prescribed a controlled substance at d/c from ED?: No <Akua Fitzgerald - Last Filed: 01/21/19 02:19> Clinical Impression: Corneal abrasion Disposition: HOME SELF-CARE Condition: Stable Instructions (If sedation given, give patient instructions): Corneal Abrasion (ED) Additional Instructions: You need to use a preservative-free eyedrops for treatment of eye irritation Call your Opthalmologist first thing in the morning for follow-up later today Referrals: Ariel Castellon DO [Primary Care Provider] - 1-2 days
--- NOTE | 2019-01-21 00:48 | CT ---
EXAMINATION TYPE: CT orbits w con DATE OF EXAM: 01/21/2019 COMPARISON: None HISTORY: left eye pain, abscess CT DLP: 307.9 mGycm Automated exposure control for dose reduction was used. CONTRAST: Performed with IV Contrast, patient injected with 100 mL of Isovue 300. FINDINGS: Images were obtained from the mid maxillary sinuses to the top of the frontal sinuses with intravenou s contrast. There is small mucus retention cyst in the left maxillary sinus. Orbital margins are intact. Nasal stefanie ne is intact. There is no evidence of retro-orbital mass. The globes are symmetric. I see no evidence of a soft tissue mass. The periorbital soft tissues are fairly symmetric. I see no pathologic fluid collection. There is no evidence of focal bone destruction. IMPRESSION: NEGATIVE CT SCAN OF THE ORBITS. NO EVIDENCE OF AN ABSCESS.
[2019-01-21] MEDS ORDERED: ERYTHROMYCIN 5 MG/GM OPHTH OINT 3.5 GM TUBE LEFT EYE STA (02:02)
[2019-01-21 02:07] VITALS: BP 142/111; PULSE 80; RESP 17; TEMP 97.9
[2019-01-21] MEDS ORDERED: CEPHALEXIN 500MG STARTER PACK 4 CAP BTL PO STA (02:14)
== END 2019-01-21 02:23 | disposition home or self-care (01) ==
LOC: EC 23:11
DX: S05.02XD Injury of conjunctiva and corneal abrasion without foreign body, left eye, subsequent encounter (principal); F17.200 Nicotine dependence, unspecified, uncomplicated; G89.29 Other chronic pain; Z79.899 Other long term (current) drug therapy; X58.XXXD Exposure to other specified factors, subsequent encounter
CPT/HCPCS: 70481; 99283; Q9967

== ENCOUNTER 2019-06-18 16:44 | Inpatient (IN) | payer OTHER ==
[2019-06-18] MEDS ORDERED: SODIUM CHLORIDE 0.9% 1,000 ML IV ONE (16:48)
[2019-06-18] MEDS ORDERED: KETOROLAC 30 MG/ML 1 ML VIAL IVP STA ×2 (16:48→19:21)
[2019-06-18] MEDS ORDERED: ONDANSETRON 4 MG/2 ML VIAL IVP STA (16:48)
--- NOTE | 2019-06-18 16:52 | ED ---
Abdominal Pain HPI <Hali Zimmerman - Last Filed: 06/18/19 19:48> <ArielJolie erickson Charlie - Last Filed: 06/20/19 23:50> - General Stated Complaint: Blood in urine, kidney stone Time Seen by Provider: 06/18/19 16:47 - History of Present Illness Initial Comments: 33yo male with history of kidney stones in the past presenting today for 2 hours of hematuria and left flank pain radiating towards the groin. Patient states that the symptoms began roughly 1-2 horus ago. He vomited once due to the pain. Pt states he noted hematuria first. Denies fevers. Patient admits to nausea, vomiting and severe colicky sharp left flank pain that radiated around abdomen towards groin. Patient denies chest or upper back pain. Denies SOB. Patient states the pain is identical to when he has had a kidney stone in the past. Patient has no additional complaints and appears very uncomfortable on arrival. (Hali Zimmerman) - Related Data Home Medications Medication Instructions Recorded Confirmed Multivitamins, Thera [Multivitamin 1 tab PO HS 05/22/18 06/18/19 (formulary)] Artificial Tears-Hypromellose 1 drops LEFT EYE Q2H 06/18/19 06/18/19 [Artificial Tear Drops] Cyclobenzaprine [Flexeril] 10 mg PO HS PRN 06/18/19 06/18/19 Losartan Potassium [Cozaar] 100 mg PO HS 06/18/19 06/18/19 Mesalamine [Lialda] 4.8 gm PO HS 06/18/19 06/18/19 Ofloxacin 0.3% Ophth Soln [Ocuflox 1 drops LEFT EYE TID 06/18/19 06/18/19 Ophth Soln] Omeprazole 20 mg PO HS 06/18/19 06/18/19 Previous Rx's Medication Instructions Recorded Oxybutynin Chloride [Oxybutynin 10 mg PO DAILY #10 tab.er.24 06/20/19 Chloride ER] Tamsulosin [Flomax] 0.4 mg PO DAILY #10 cap 06/20/19 Allergies Allergy/AdvReac Type Severity Reaction Status Date / Time No Known Allergies Allergy Verified 06/18/19 19:53 Review of Systems ROS Other: All systems not noted in ROS Statement are negative. <Hali Zimmerman - Last Filed: 06/18/19 19:48> ROS Other: All systems not noted in ROS Statement are negative. <Jolie Mtz - Last Filed: 06/20/19 23:50> ROS Statement: Those systems with pertinent positive or pertinent negative responses have been documented in the HPI. Past Medical History Past Medical History: GERD/Reflux, Sleep Apnea/CPAP/BIPAP Additional Past Medical History / Comment(s): DOES NOT USE CPAP. CHRONIC LOWER BACK PAIN, WITH SCIATIC NERVE PAIN. History of Any Multi-Drug Resistant Organisms: None Reported Past Surgical History: No Surgical Hx Reported Additional Past Surgical History / Comment(s): LOCAL ANESTHESIA FOR REMOVAL OF METAL FROM LEFT ARM Past Anesthesia/Blood Transfusion Reactions: No Reported Reaction Additional Past Anesthesia/Blood Transfusion Reaction / Comment(s): HAS NEVER HAD ANESTHESIA Past Psychological History: No Psychological Hx Reported Smoking Status: Current every day smoker Past Alcohol Use History: None Reported Past Drug Use History: None Reported - Past Family History Mother Family Medical History: No Reported History <Hali Zimmerman - Last Filed: 06/18/19 19:48> General Exam <Hali Zimmerman - Last Filed: 06/18/19 19:48> - General Exam Comments Initial Comments: General: The patient is awake and alert, appears uncomfortable Eye: Pupils are equal, round and reactive to light, extra-ocular movements are intact. No nystagmus. There is normal conjunctiva bilaterally. No signs of icterus. Cardiovascular: There is a regular rate and rhythm. No murmur, rub or gallop is appreciated. Respiratory: Lungs are clear to auscultation, respirations are non-labored, breath sounds are equal. No wheezes, stridor, rales, or rhonchi. Gastrointestinal: Soft, non-distended, non-tender abdomen without masses or organomegaly noted. There is no rebound or guarding present Musculoskeletal: Normal ROM, no tenderness. Strength 5/5. Sensation intact. Radial pulses equal bilaterally 2+. Neurological: A&O x 3. CN II-XII intact, There are no obvious motor or sensory deficits. Coordination appears grossly intact. Speech is normal. Skin: Skin is warm and dry and no rashes or lesions are noted. Psychiatric: Cooperative, appropriate mood & affect, normal judgment. (Hali Zimmerman) Course Vital Signs 06/18/19 06/18/19 06/18/19 16:49 17:45 18:43 Temperature 98.6 F Pulse Rate 111 H 88 Respiratory 18 18 Rate Blood Pressure 137/132 157/105 140/99 O2 Sat by Pulse 100 98 Oximetry 06/18/19 06/18/19 20:45 20:50 Temperature 98 F 98 F Pulse Rate 102 H 102 H Respiratory 16 16 Rate Blood Pressure 140/93 140/93 O2 Sat by Pulse 98 Oximetry Medical Decision Making - Lab Data Result diagrams: 06/18/19 17:05 06/18/19 17:05 <Hali Zimmerman - Last Filed: 06/18/19 19:48> - Lab Data Result diagrams: 06/18/19 17:05 06/18/19 17:05 <Jolie Mtz - Last Filed: 06/20/19 23:50> - Medical Decision Making 33-year-old male presented for left flank pain. Patient's history kidney stone states the sensation is identical. Patient complaining of hematuria. There is an obstructing left-sided stone. Some mild hydronephrosis. Patient has 74 WBC with >182 RBC. No bacteria is noted. Do not feel this is a septic stone at this time but difficult to decifer with significant gross hematuria. Given IVP rocephin. Patient pain not controlled in ER. He was admitted after Dr. Guardado spoke with Dr. Mtz. (Hali Zimmerman) I was available for consultation in the emergency department. The history and physical exam were done by the midlevel provider. I was consulted for this patients care. I reviewed the case with the midlevel provider and based on their presentation of the patient, I agree with the assessment, medical decision making and plan of care as documented. I evaluated the patient myself. We are unable to control the patients pain at this time and therefore recommended hospital admission. I spoke with Dr. Guardado who accepted admission. Patient will be made NPO at midnight. Chart was dictated using [employer] dictation software. Attempts were made to c orrect any dictation errors however some typographical errors may persist. Patient was seen during a national state of emergency due to the Covid-19 pandemic. (Jolie Mtz) - Lab Data Lab Results 06/18/19 06/18/19 06/18/19 Range/Units 17:05 17:05 17:05 WBC 6.9 (3.8-10.6) k/uL RBC 5.18 (4.30-5.90) m/uL Hgb 15.1 (13.0-17.5) gm/dL Hct 45.2 (39.0-53.0) % MCV 87.1 (80.0-100.0) fL MCH 29.0 (25.0-35.0) pg MCHC 33.3 (31.0-37.0) g/dL RDW 13.2 (11.5-15.5) % Plt Count 245 (150-450) k/uL Neutrophils % 60 % Lymphocytes % 32 % Monocytes % 5 % Eosinophils % 1 % Basophils % 0 % Neutrophils # 4.1 (1.3-7.7) k/uL Lymphocytes # 2.2 (1.0-4.8) k/uL Monocytes # 0.3 (0-1.0) k/uL Eosinophils # 0.1 (0-0.7) k/uL Basophils # 0.0 (0-0.2) k/uL Sodium 137 (137-145) mmol/L Potassium 4.4 (3.5-5.1) mmol/L Chloride 100 (98-107) mmol/L Carbon Dioxide 23 (22-30) mmol/L Anion Gap 14 mmol/L BUN 17 (9-20) mg/dL Creatinine 1.05 (0.66-1.25) mg/dL Est GFR (CKD-EPI)AfAm >90 (>60 ml/min/1.73 sqM) Est GFR (CKD-EPI)NonAf >90 (>60 ml/min/1.73 sqM) Glucose 187 H (74-99) mg/dL Calcium 9.8 (8.4-10.2) mg/dL Total Bilirubin 1.0 (0.2-1.3) mg/dL AST 50 (17-59) U/L ALT 72 H (4-49) U/L Alkaline Phosphatase 91 (38-126) U/L Total Protein 8.3 H (6.3-8.2) g/dL Albumin 5.0 (3.5-5.0) g/dL Urine Color Dark Red Urine Appearance Turbid (Clear) Urine pH 5.5 (5.0-8.0) Ur Specific [place] >1.050 H (1.001-1.035) Urine Protein 2+ H (Negative) Urine Glucose (UA) Negative (Negative) Urine Ketones Trace H (Negative) Urine Blood Large H (Negative) Urine Nitrite Negative (Negative) Urine Bilirubin Negative (Negative) Urine Urobilinogen <2.0 (<2.0) mg/dL Ur Leukocyte Esterase Small H (Negative) Urine RBC >182 H (0-5) /hpf Urine WBC 74 H (0-5) /hpf Disposition Is patient prescribed a controlled substance at d/c from ED?: No Time of Disposition: 19:51 <Hali Zimmerman - Last Filed: 06/18/19 19:48> <Jolie Mtz - Last Filed: 06/20/19 23:50> Clinical Impression: Kidney stone, Urinary tract obstruction by kidney stone, Intractable pain, Gross hematuria Disposition: ADMITTED IP TO THIS HOSP Condition: Good
[2019-06-18] MEDS: SODIUM CHLORIDE 0.9% 1,000 ML IV SCH (17:03)
[2019-06-18 17:25] LABS: Basophils % (A) 0 %; Eosinophils # (A) 0.1 k/uL (0-0.7); Eosinophils % (A) 1 %; HCT 45.2 % (39.0-53.0); HGB 15.1 gm/dL (13.0-17.5); Lymphocytes # (A) 2.2 k/uL (1.0-4.8); Lymphocytes % (A) 32 %; MCHC 33.3 g/dL (31.0-37.0); MCV 87.1 fL (80.0-100.0); Mean Platelet Volume 7.1; Monocytes # (A) 0.3 k/uL (0-1.0); Monocytes % (A) 5 %; Neutrophils # (A) 4.1 k/uL (1.3-7.7); Neutrophils % (A) 60 %; Platelet Count 245 k/uL (150-450); RBC 5.18 m/uL (4.30-5.90); RDW 13.2 % (11.5-15.5); WBC 6.9 k/uL (3.8-10.6)
[2019-06-18 17:29] LABS: ALT 72 U/L (4-49); AST 50 U/L (17-59); African American GFR (CKD) >90 (>60 ml/min/1.73 sqM); Alkaline Phosphatase 91 U/L (38-126); Anion Gap 14 mmol/L; Blood Urea Nitrogen 17 mg/dL (9-20); Calcium 9.8 mg/dL (8.4-10.2); Carbon Dioxide 23 mmol/L (22-30); Chloride 100 mmol/L (98-107); Glucose 187 mg/dL (74-99); Non-African American GFR(CKD) >90 (>60 ml/min/1.73 sqM); Potassium 4.4 mmol/L (3.5-5.1); Sodium 137 mmol/L (137-145); Total Protein 8.3 g/dL (6.3-8.2)
[2019-06-18 17:30] LABS: Appearance,Urine Turbid (Clear); Bilirubin,Urine Negative (Negative); Blood,Urine Large (Negative); Color,Urine Dark Red; Glucose,Urine (UA) Negative (Negative); Ketones,Urine Trace (Negative); Leukocyte Esterase,Urine Small (Negative); Nitrite,Urine Negative (Negative); PH, Urine 5.5 (5.0-8.0); Protein,Urine 2+ (Negative); RBC,Urine >182 /hpf (0-5); Urobilinogen,Urine <2.0 mg/dL (<2.0); WBC,Urine 74 /hpf (0-5)
[2019-06-18 17:31] LABS: Specific Gravity,Urine >1.050 (1.001-1.035)
--- NOTE | 2019-06-18 17:51 | CT ---
EXAMINATION TYPE: CT abdomen pelvis wo con DATE OF EXAM: 06/18/2019 COMPARISON: 05/22/2018 HISTORY: Left flank pain and hematuria CT DLP: 1269.4 mGycm Automated exposure control for dose reduction was used. Exam performed from the diaphragm to the floor the pelvis with no contrast. Lung bases are clear of infiltrate. There is no pleural effusion. Heart size is normal. There is no p ericardial effusion. There is diffuse fatty infiltration of the liver. Spleen is intact. There is no pancreatic mass. Gallbladder shows 1.6 cm gallstone at the gallbladder neck. The bile ducts are not d ilated. Stomach is intact. There is no adrenal mass. Kidneys have normal size. There is left-sided hydronephrosis and 4 mm obstr ucting calculus in the proximal left ureter. There are multiple bilateral small renal calculi that me asure up to 3 mm. Right kidney shows no hydronephrosis. There is no retroperitoneal adenopathy. Appen himanshu appears normal. Bladder distends smoothly. There is no inguinal hernia. There is no free fluid in the pelvis. There i s no mesenteric edema. There is no ascites or free air. There is no sign of a bowel obstruction. Lumb ar spine shows 20% anterior wedging of L1 vertebra consistent with an old fracture. The bony pelvis i s intact. IMPRESSION: Obstructing calculus proximal left ureter with left-sided hydronephrosis. Multiple bilateral small renal calculi. Fatty infiltration of the liver. Obstruction of the left kidney is new compared to old exam. L1 compression fracture unchanged compared to old exam.
[2019-06-18] MEDS ORDERED: MORPHINE SULFATE 4 MG/ML SYRINGE IVP STA (18:02)
[2019-06-18] MEDS ORDERED: HYDROmorphone 0.5 MG/0.5 ML SYRINGE IVP STA ×2 (18:58→23:25)
[2019-06-18] MEDS ORDERED: HYDROmorphone 0.5 MG/0.5 ML SYRINGE IVP PRN (19:50)
[2019-06-18] MEDS ORDERED: KETOROLAC 30 MG/ML 1 ML VIAL IVP PRN (19:50)
[2019-06-18] MEDS ORDERED: TAMSULOSIN 0.4 MG CAP.ER.24H PO STA (19:50)
--- NOTE | 2019-06-18 20:26 | XR ---
EXAMINATION TYPE: XR KUB DATE OF EXAM: 06/18/2019 COMPARISON: 04/30/2010 HISTORY: Left ureteral stone TECHNIQUE: 2 views upright FINDINGS: There is no sign of intestinal obstruction or pneumoperitoneum. Fecal pattern is normal. Th ere is no evidence of a mass. Lung bases are clear of infiltrate. IMPRESSION: Nonacute abdomen. There is a calculus in the proximal left ureter on the CT scan of 2019 that is quite small and it is not clear if the stone is still present.
[2019-06-18] MEDS ORDERED: NALOXONE 0.4 MG/ML 1 ML VIAL IV PRN (20:32)
[2019-06-18] MEDS ORDERED: CYCLOBENZAPRINE 10 MG TAB PO PRN (22:34)
[2019-06-18] MEDS ORDERED: ARTIFICIAL TEARS-HYPROMELLOSE DROPS 15 ML BTL LEFT EYE SCH (23:00)
[2019-06-18] MEDS: OFLOXACIN 0.3% OPHTH DROPS 5 ML BOTTLE LEFT EYE SCH (23:14)
[2019-06-18] MEDS: BALSALAZIDE DISODIUM 750 MG CAPSULE PO SCH (23:15)
[2019-06-18] MEDS: LOSARTAN 50 MG TAB PO SCH (23:15)
[2019-06-18] MEDS: PANTOPRAZOLE 40 MG TABLET PO SCH (23:15)
[2019-06-19] MEDS: HYDROmorphone 1 MG/ML 1 ML SYRINGE IVP PRN ×4 (00:42→18:11)
[2019-06-19] MEDS: KETOROLAC 30 MG/ML 1 ML VIAL IVP PRN ×2 (06:03→20:42)
[2019-06-19] MEDS: ARTIFICIAL TEARS-HYPROMELLOSE DROPS 15 ML BTL LEFT EYE PRN (06:04)
--- NOTE | 2019-06-19 10:20 | P.GSHP ---
History of Present Illness H&P Date: 06/19/19 Chief Complaint: Left renal colic The patient is a 33-year-old white male with a history of urolithiasis, for which he has never required surgery. Yesterday, he experienced acute onset of left flank pain, associated with nausea and vomiting. The presented to the emergency room and was subsequently admitted. His pain has been intractable, and he did not sleep overnight. - Constitutional Constitutional: Denies chills, Denies fever - Gastrointestinal Gastrointestinal: Reports nausea, Reports vomiting - Genitourinary (Female) Genitourinary: Reports flank pain, Reports hematuria, Reports kidney stones Past Medical History Past Medical History: GERD/Reflux, Hypertension, Sleep Apnea/CPAP/BIPAP Additional Past Medical History / Comment(s): DOES NOT USE CPAP. CHRONIC LOWER BACK PAIN, WITH SCIATIC NERVE PAIN. colitis, DDD, Left eye injury, History of Any Multi-Drug Resistant Organisms: None Reported Past Surgical History: Orthopedic Surgery Additional Past Surgical History / Comment(s): neck fusion, lower back surgery, wrist surgery-cyst removal. right shoulder cyst removal, left arm sharpnel removal. Past Anesthesia/Blood Transfusion Reactions: No Reported Reaction Additional Past Anesthesia/Blood Transfusion Reaction / Comment(s): HAS NEVER HAD ANESTHESIA Past Psychological History: No Psychological Hx Reported Smoking Status: Former smoker Past Alcohol Use History: None Reported Additional Past Alcohol Use History / Comment(s): drinks occasional. Past Drug Use History: None Reported - Past Family History Mother Family Medical History: No Reported History Medications and Allergies Home Medications Medication Instructions Recorded Confirmed Type Multivitamins, Thera [Multivitamin 1 tab PO HS 05/22/18 06/18/19 History (formulary)] Artificial Tears-Hypromellose 1 drops LEFT EYE Q2H 06/18/19 06/18/19 History [Artificial Tear Drops] Cyclobenzaprine [Flexeril] 10 mg PO HS PRN 06/18/19 06/18/19 History Losartan Potassium [Cozaar] 100 mg PO HS 06/18/19 06/18/19 History Mesalamine [Lialda] 4.8 gm PO HS 06/18/19 06/18/19 History Ofloxacin 0.3% Ophth Soln [Ocuflox 1 drops LEFT EYE TID 06/18/19 06/18/19 History Ophth Soln] Omeprazole 20 mg PO HS 06/18/19 06/18/19 History Allergies Allergy/AdvReac Type Severity Reaction Status Date / Time No Known Allergies Allergy Verified 06/18/19 19:53 Surgical - Exam Vital Signs Temp Pulse Resp BP Pulse Ox 98.6 F 111 H 18 137/132 100 06/18/19 16:49 06/18/19 16:49 06/18/19 16:49 06/18/19 16:49 06/18/19 16:49 - General well developed, well nourished, moderate distress - Neck no masses, trachea midline - Respiratory normal respiratory effort - Abdomen Abdomen: soft, tender (Mild left lower quadrant tenderness), no masses, no guarding, no rigid, no rebound - Genitourinary normal penis with no external lesions, testicles non-tender - Psychiatric oriented to time, oriented to person, oriented to place, speech is normal, memory intact Results - Labs 06/18/19 17:05 06/18/19 17:05 Abnormal Lab Results - Last 24 Hours (Table) 06/18/19 06/18/19 Range/Units 17:05 17:05 Glucose 187 H (74-99) mg/dL ALT 72 H (4-49) U/L Total Protein 8.3 H (6.3-8.2) g/dL Ur Specific [place] >1.050 H (1.001-1.035) Urine Protein 2+ H (Negative) Urine Ketones Trace H (Negative) Urine Blood Large H (Negative) Ur Leukocyte Esterase Small H (Negative) Urine RBC >182 H (0-5) /hpf Urine WBC 74 H (0-5) /hpf Microbiology - Last 24 Hours (Table) 06/18/19 17:05 Urine Culture - Preliminary Urine,Voided Diabetes panel 06/18/19 Range/Units 17:05 Sodium 137 (137-145) mmol/L Potassium 4.4 (3.5-5.1) mmol/L Chloride 100 (98-107) mmol/L Carbon Dioxide 23 (22-30) mmol/L BUN 17 (9-20) mg/dL Creatinine 1.05 (0.66-1.25) mg/dL Glucose 187 H (74-99) mg/dL Calcium 9.8 (8.4-10.2) mg/dL AST 50 (17-59) U/L ALT 72 H (4-49) U/L Alkaline Phosphatase 91 (38-126) U/L Total Protein 8.3 H (6.3-8.2) g/dL Albumin 5.0 (3.5-5.0) g/dL Calcium panel 06/18/19 Range/Units 17:05 Calcium 9.8 (8.4-10.2) mg/dL Albumin 5.0 (3.5-5.0) g/dL Pituitary panel 06/18/19 Range/Units 17:05 Sodium 137 (137-145) mmol/L Potassium 4.4 (3.5-5.1) mmol/L Chloride 100 (98-107) mmol/L Carbon Dioxide 23 (22-30) mmol/L BUN 17 (9-20) mg/dL Creatinine 1.05 (0.66-1.25) mg/dL Glucose 187 H (74-99) mg/dL Calcium 9.8 (8.4-10.2) mg/dL Adrenal panel 06/18/19 Range/Units 17:05 Sodium 137 (137-145) mmol/L Potassium 4.4 (3.5-5.1) mmol/L Chloride 100 (98-107) mmol/L Carbon Dioxide 23 (22-30) mmol/L BUN 17 (9-20) mg/dL Creatinine 1.05 (0.66-1.25) mg/dL Glucose 187 H (74-99) mg/dL Calcium 9.8 (8.4-10.2) mg/dL Total Bilirubin 1.0 (0.2-1.3) mg/dL AST 50 (17-59) U/L ALT 72 H (4-49) U/L Alkaline Phosphatase 91 (38-126) U/L Total Protein 8.3 H (6.3-8.2) g/dL Albumin 5.0 (3.5-5.0) g/dL - Imaging CT scan - abdomen: report reviewed, image reviewed Assessment and Plan (1) Calculus of ureter Current Visit: Yes Status: Acute Code(s): N20.1 - CALCULUS OF URETER SNO MED Code(s): 47510924 (2) Hydronephrosis due to obstruction of ureter Current Visit: Yes Status: Acute Code(s): N13.2 - HYDRONEPHROSIS WITH RENAL AND URETERAL CALCULOUS OBSTRUCTION SNOMED Code(s): 600476824 Plan: The computed tomography scan shows evidence of left hydronephrosis due to a 4 mm left proximal ureteral calculus. The CT scan also shows at least one tiny left renal calculus. 3 small right renal calculi are seen. The patient was offered the options of medical expulsive therapy versus ureteroscopic removal of the ure teral calculus. He has elected to proceed with the latter. The procedure has been reviewed in detail with the patient. He has been made aware of potential risks, which include anesthesia, ureteral injury, and inability to successfully remove the calculus. He is aware of the need for a ureteral stent postoperatively. Time with Patient: Greater than 30
[2019-06-19] MEDS: SODIUM CHLORIDE 0.9% 1,000 ML IV SCH ×2 (11:26→22:23)
[2019-06-19] MEDS: OFLOXACIN 0.3% OPHTH DROPS 5 ML BOTTLE LEFT EYE SCH ×3 (11:26→20:51)
[2019-06-19] MEDS ORDERED: MIDAZOLAM 2 MG/2 ML VIAL ONE (11:38)
[2019-06-19] MEDS ORDERED: fentaNYL (PF) 50 MCG/ML 2 ML AMP ONE (11:38)
[2019-06-19] MEDS ORDERED: LIDOCAINE 1% INJ 10MG/ML (20 ML MDV) ONE (11:38)
[2019-06-19] MEDS ORDERED: SUCCINYLCHOLINE CHLORIDE VIAL 200 MG/10 ML VIAL IV ONE (11:38)
[2019-06-19] MEDS ORDERED: PROPOFOL 10 MG/ML 20 ML VIAL IV ONE (11:38)
[2019-06-19] MEDS ORDERED: diphenhydrAMINE 50 MG/ML 1 ML VIAL ONE (11:38)
[2019-06-19] MEDS ORDERED: KETOROLAC 30 MG/ML 1 ML VIAL ONE (11:38)
[2019-06-19] MEDS ORDERED: HYDROmorphone (PF) 1 MG/ML ONE (11:38)
[2019-06-19] MEDS ORDERED: SODIUM CHLORIDE 0.9% 1,000 ML IV ONE (11:47)
[2019-06-19] MEDS ORDERED: IOPAMIDOL-370 50ML BTL MISCELLANE ONE (12:08)
[2019-06-19] MEDS ORDERED: LACTATED RINGERS 1,000 ML IV ONE (13:01)
--- NOTE | 2019-06-19 13:15 | P.OP ---
Date of Procedure: 06/19/19 Preoperative Diagnosis: Left hydronephrosis secondary to left ureteral calculus Postoperative Diagnosis: Same Procedure(s) Performed: Cystoscopy, left retrograde pyelogram, left ureteroscopy with Holmium laser lithotripsy and stone basketing, left ureteral stent insertion Anesthesia: SONJAA Surgeon: Thierry Guardado Estimated Blood Loss (ml): 5 IV fluids (ml): 1,000 Pathology: other (Calculus fragments, sent for chemical analysis) Condition: stable Disposition: PACU Indications for Procedure: The patient is a 33-year-old white male admitted with left renal colic due to a 4 mm left proximal ureteral calculus. His symptoms are intractable and he has thus elected to undergo ureteroscopic removal of the calculus. Operative Findings: Small partially obstructing left proximal ureteral calculus. Multiple tiny calculi are suggestive of active uric acid urolithiasis. Description of Procedure: The patient was taken to the operating room and placed in the dorsolithotomy position, with legs supported in Jaquan stirrups. The external genitalia was prepped and draped sterilely. The 30 lens was used to introduce the 19-Ch[place]an Stortz cystoscopic sheath through the urethra and into the bladder under direct vision. The prostatic urethra showed evidence of mild lateral lobe enlargement. The bladder was examined in its entirety. Both ureteral orifices were normal anatomic location and configuration, and clear urine effluxed from both. No tumors or foreign bodies were seen. Using a 10-Chilean cone-tipped catheter, a left retrograde pyelogram was performed. The distal two thirds of the ureter appeared normal. Within the proximal ureter was a transition point above which mild dilation of the ureter was noted. The calculus was not definitively seen. Next, a 0.038 inch Glidewire was passed through the cystoscope. The left ureteral orifice was cannulated, and the Glidewire was slowly advanced up to the left renal pelvis. The calculus easily passed beyond the transition point within the proximal ureter. An 11/13-Chilean ureteral access catheter was passed over the wire, up to the mid ureter. The Olympus mini flexible ureteroscope was passed through the ureteral access catheter sheath and advanced under direct vision. A calculus was identified within the proximal ureter. This became dislodged and refluxed into the kidney. Visualization within the kidney was suboptimal. Therefore, the renal pelvis was irrigated, and each calyx was then examined. Several small calculi were identified, not exceeding 2 mm in size. Approximately 3 were removed via Stone basketing using a 1.9-Chilean nitinol basket. The 200 micron Holmium laser probe was passed through the ureteroscope, and lithotripsy was performed to fragment any remaining calculi. The ureteroscope was removed. The Glidewire was passed through the ureteral access catheter sheath, which was then removed. The Glidewire was backloaded into the cystoscope, which was passed into the bladder. A 28 cm, 4.8-Chilean double-J ureteral stent was placed over the wire. Proper stent positioning was verified fluoroscopically and endoscopically. The bladder was emptied and the cystoscope was carefully removed. The string remained attached to the stent, and the string was taped to the penis using a Tegaderm dressing. The patient tolerated the procedure well and was taken to the recovery room in stable condition. [facility] [place] Report: Procedure Acuity: Urgent Stone Size and Location: 3 mm, left proximal ureter Ureteral Dilation: No Ureteral Access Sheath Used: Yes Stone Sent for Analysis: Yes All Stones/Fragments Were Removed with a Basket: Yes Complications: No Preoperative Antibiotics Given: No Stent Placed: Yes If Stent Placed, Was String Left Attached: Yes If Stent Placed, When is it to be Removed: 1 week
[2019-06-19 13:27] VITALS: RESP 16
--- NOTE | 2019-06-19 13:50 | FL ---
FLUOROSCOPY 1 minute and 6 seconds of fluoroscopy time were utilized during left ureteral stone manipulation. 2 i mageken document the procedure.
[2019-06-19] MEDS ORDERED: HYDROmorphone 0.5 MG/0.5 ML SYRINGE IVP ONE (14:01)
[2019-06-19] MEDS: BALSALAZIDE DISODIUM 750 MG CAPSULE PO SCH ×3 (14:39→20:50)
[2019-06-19] MEDS: PANTOPRAZOLE 40 MG TABLET PO SCH (20:45)
[2019-06-19] MEDS ORDERED: MULTIVITAMINS, THERA 1 EACH TAB PO SCH (21:00)
[2019-06-19] MEDS: LOSARTAN 50 MG TAB PO SCH (22:02)
[2019-06-20] MEDS: HYDROmorphone 1 MG/ML 1 ML SYRINGE IVP PRN (00:28)
[2019-06-20] MEDS: KETOROLAC 30 MG/ML 1 ML VIAL IVP PRN ×2 (03:28→08:35)
[2019-06-20 04:29] VITALS: BP 138/85; PULSE 98; TEMP 98.2
[2019-06-20] MEDS: ARTIFICIAL TEARS-HYPROMELLOSE DROPS 15 ML BTL LEFT EYE PRN (08:31)
[2019-06-20] MEDS: BALSALAZIDE DISODIUM 750 MG CAPSULE PO SCH (08:31)
[2019-06-20] MEDS: OFLOXACIN 0.3% OPHTH DROPS 5 ML BOTTLE LEFT EYE SCH (08:32)
--- NOTE | 2019-06-20 08:50 | P.DS ---
Providers Date of admission: 06/18/19 19:36 Expected date of discharge: 06/20/19 Attending physician: Thierry Guardado Primary care physician: Ariel Castellon - Discharge Diagnosis(es) (1) Calculus of ureter Current Visit: Yes Status: Acute (2) Hydronephrosis due to obstruction of ureter Current Visit: Yes Status: Acute Hospital Course: Upon admission, the patient was treated with parenteral analgesics. His pain was intractable. He underwent cystoscopy, left retrograde pyelogram, left u reteroscopy with holmium laser lithotripsy and stone basketing. His small left proximal ureteral calculus became dislodged. Several small left renal calculi were fragmented and/or removed via stone basketing. A ureteral stent was placed. On the first postoperative day, he reported painful voiding but otherwise felt well. Procedures: Cystoscopy, left retrograde pyelogram, left ureteroscopy with Holmium laser lithotripsy and stone basketing, left ureteral stent insertion on 06/19/2019. Patient Condition at Discharge: Good Plan - Discharge Summary Discharge Rx Participant: No New Discharge Prescriptions: New Tamsulosin [Flomax] 0.4 mg PO DAILY #10 cap Oxybutynin Chloride [Oxybutynin Chloride ER] 10 mg PO DAILY #10 tab.er.24 No Action Multivitamins, Thera [Multivitamin (formulary)] 1 tab PO HS Omeprazole 20 mg PO HS Ofloxacin 0.3% Ophth Soln [Ocuflox Ophth Soln] 1 drops LEFT EYE TID Cyclobenzaprine [Flexeril] 10 mg PO HS PRN PRN Reason: Pain Mesalamine [Lialda] 4.8 gm PO HS Losartan Potassium [Cozaar] 100 mg PO HS Artificial Tears-Hypromellose [Artificial Tear Drops] 1 drops LEFT EYE Q2H Discharge Medication List Multivitamins, Thera [Multivitamin (formulary)] 1 tab PO HS 05/22/18 [History] Artificial Tears-Hypromellose [Artificial Tear Drops] 1 drops LEFT EYE Q2H 06/18/19 [History] Cyclobenzaprine [Flexeril] 10 mg PO HS PRN 06/18/19 [History] Losartan Potassium [Cozaar] 100 mg PO HS 06/18/19 [History] Mesalamine [Lialda] 4.8 gm PO HS 06/18/19 [History] Ofloxacin 0.3% Ophth Soln [Ocuflox Ophth Soln] 1 drops LEFT EYE TID 06/18/19 [History] Omeprazole 20 mg PO HS 06/18/19 [History] Oxybutynin Chloride [Oxybutynin Chloride ER] 10 mg PO DAILY #10 tab.er.24 06/20/19 [Rx] Tamsulosin [Flomax] 0.4 mg PO DAILY #10 cap 06/20/19 [Rx] Follow up Appointment(s)/Referral(s): Ariel Castellon DO [Primary Care Provider] - 1-2 days Thierry Guardado MD [STAFF PHYSICIAN] - 1 Week Activity/Diet/Wound Care/Special Instructions: Diet as tolerated. Activity as tolerated. Drink plenty of fluids. Discharge Disposition: HOME SELF-CARE
== END 2019-06-20 13:40 | disposition home or self-care (01) | DRG 661 ==
LOC: EC 16:44 → 5NMEDONC 19:36
PROVIDERS: ADMIT Urology; ATTEND Urology
PROC: 0TC78ZZ Extirpation of Matter from Left Ureter, Via Natural or Artificial Opening Endoscopic (ICD-10-PCS; principal; 2019-06-19 11:09)
PROC: BT1F1ZZ Fluoroscopy of Left Kidney, Ureter and Bladder using Low Osmolar Contrast (ICD-10-PCS; principal; 2019-06-19 11:09)
PROC: 0T778DZ Dilation of Left Ureter with Intraluminal Device, Via Natural or Artificial Opening Endoscopic (ICD-10-PCS; principal; 2019-06-19 11:09)
DX: N13.2 Hydronephrosis with renal and ureteral calculous obstruction (principal); G47.30 Sleep apnea, unspecified; R31.0 Gross hematuria; I10 Essential (primary) hypertension; K21.9 Gastro-esophageal reflux disease without esophagitis; G89.29 Other chronic pain; M54.40 Lumbago with sciatica, unspecified side; Z79.899 Other long term (current) drug therapy; Z87.891 Personal history of nicotine dependence; Z87.442 Personal history of urinary calculi; Z98.1 Arthrodesis status
CPT/HCPCS: 36415; 74018; 74176; 74420; 80053; 81001; 82365; 85025; 87086; 96361; 96374; 96375; 96376; 99285

== ENCOUNTER 2019-07-02 23:19 | Emergency (ER) | payer OTHER ==
[2019-07-03] MEDS ORDERED: HYDROmorphone 0.5 MG/0.5 ML SYRINGE IVP STA ×2 (00:02→02:48)
[2019-07-03] MEDS ORDERED: KETOROLAC 30 MG/ML 1 ML VIAL IVP STA (00:02)
[2019-07-03] MEDS ORDERED: ONDANSETRON 4 MG/2 ML VIAL IVP STA (00:07)
--- NOTE | 2019-07-03 00:11 | ED ---
Abdominal Pain HPI - General Chief Complaint: Back Pain/Injury Stated Complaint: kidney stones Time Seen by Provider: 07/03/19 00:02 Source: patient Mode of arrival: ambulatory Limitations: no limitations - History of Present Illness Initial Comments: This patient is a 33-year-old man with history of kidney stone, who presents with what he states is identical pain that started up tonight. The patient states she was doing some work around the house when he started having right flank pain. The pain radiates to the right groin/testicle. He describes it as severe, burning, constant. Pain is coming by nausea and vomiting. He did try and take the medication she was prescribed for his recent stone but states that he had vomiting and can keep these down. MD Complaint: flank pain Onset/Timin -: hour(s) Location: R flank Radiation: RLQ Migration to: no migration Severity: severe Quality: burning Consistency: constant Improves With: nothing Worsens With: nothing Associated Symptoms: nausea, vomiting, hematuria - Related Data Home Medications Medication Instructions Recorded Confirmed Multivitamins, Thera [Multivitamin 1 tab PO HS 05/22/18 06/18/19 (formulary)] Artificial Tears-Hypromellose 1 drops LEFT EYE Q2H 06/18/19 06/18/19 [Artificial Tear Drops] Cyclobenzaprine [Flexeril] 10 mg PO HS PRN 06/18/19 06/18/19 Losartan Potassium [Cozaar] 100 mg PO HS 06/18/19 06/18/19 Mesalamine [Lialda] 4.8 gm PO HS 06/18/19 06/18/19 Ofloxacin 0.3% Ophth Soln [Ocuflox 1 drops LEFT EYE TID 06/18/19 06/18/19 Ophth Soln] Omeprazole 20 mg PO HS 06/18/19 06/18/19 Previous Rx's Medication Instructions Recorded Oxybutynin Chloride [Oxybutynin 10 mg PO DAILY #10 tab.er.24 06/20/19 Chloride ER] Tamsulosin [Flomax] 0.4 mg PO DAILY #10 cap 06/20/19 Hydrocodone/Acetaminophen [[place] 1 each PO Q6HR PRN #20 tab 07/03/19 5-325] Ondansetron Odt [Zofran ODT] 4 mg PO Q8HR PRN #10 tab 07/03/19 Tamsulosin [Flomax] 0.4 mg PO DAILY #14 cap 07/03/19 Allergies Allergy/AdvReac Type Severity Reaction Status Date / Time No Known Allergies Allergy Verified 07/03/19 00:20 Review of Systems ROS Statement: Those systems with pertinent positive or pertinent negative responses have been documented in the HPI. ROS Other: All systems not noted in ROS Statement are negative. Constitutional: Denies: fever, chills, weakness Respiratory: Denies: cough, dyspnea Cardiovascular: Denies: chest pain, palpitations, edema Gastrointestinal: Reports: as per HPI, abdominal pain, nausea, vomiting. Denies: diarrhea, constipation, melena, hematochezia Genitourinary: Reports: hematuria, testicular pain. Denies: dysuria, frequency, discharge, testicular mass Musculoskeletal: Denies: back pain Skin: Denies: rash Neurological: Denies: headache, weakness, numbness Hematological/Lymphatic: Denies: easy bleeding Past Medical History Past Medical History: GERD/Reflux, Hypertension, Sleep Apnea/CPAP/BIPAP Additional Past Medical History / Comment(s): DOES NOT USE CPAP. CHRONIC LOWER BACK PAIN, WITH SCIATIC NERVE PAIN. colitis, DDD, Left eye injury, History of Any Multi-Drug Resistant Organisms: None Reported Past Surgical History: Orthopedic Surgery Additional Past Surgical History / Comment(s): neck fusion, lower back surgery, wrist surgery-cyst removal. right shoulder cyst removal, left arm sharpnel removal. Past Anesthesia/Blood Transfusion Reactions: No Reported Reaction Additional Past Anesthesia/Blood Transfusion Reaction / Comment(s): HAS NEVER HAD ANESTHESIA Past Psychological History: No Psychological Hx Reported Smoking Status: Former smoker Past Alcohol Use History: None Reported Past Drug Use History: None Reported - Past Family History Mother Family Medical History: No Reported History General Exam Limitations: no limitations General appearance: alert, in no apparent distress Head exam: Present: atraumatic, normocephalic Eye exam: Present: normal appearance. Absent: scleral icterus, conjunctival injection Respiratory exam: Present: normal lung sounds bilaterally. Absent: respiratory distress, wheezes, rales, rhonchi, stridor Cardiovascular Exam: Present: regular rate, normal rhythm, normal heart sounds. Absent: systolic murmur, diastolic murmur, rubs, gallop GI/Abdominal exam: Present: soft. Absent: distended, tenderness, guarding, rebound, rigid, mass, pulsatile mass, hernia Extremities exam: Present: normal inspection, normal capillary refill. Absent: pedal edema, calf tenderness Back exam: Present: normal inspection, CVA tenderness (R). Absent: CVA tenderness (L) Neurological exam: Present: alert Skin exam: Present: warm, dry, intact, normal color. Absent: rash Course Vital Signs 07/02/19 07/03/19 07/03/19 23:24 01:40 03:05 Temperature 97.5 F L Pulse Rate 94 83 107 H Respiratory 18 16 19 Rate Blood Pressure 170/92 137/84 141/98 O2 Sat by Pulse 99 97 99 Oximetry 07/03/19 04:18 Temperature 97.7 F Pulse Rate 91 Respiratory 17 Rate Blood Pressure 150/85 O2 Sat by Pulse 100 Oximetry Medical Decision Making - Lab Data Result diagrams: 07/03/19 00:48 07/03/19 00:48 Lab Results 07/03/19 07/03/19 07/03/19 Range/Units 00:48 00:48 00:48 WBC 10.0 (3.8-10.6) k/uL RBC 5.02 (4.30-5.90) m/uL Hgb 15.2 (13.0-17.5) gm/dL Hct 45.3 (39.0-53.0) % MCV 90.4 (80.0-100.0) fL MCH 30.3 (25.0-35.0) pg MCHC 33.5 (31.0-37.0) g/dL RDW 12.9 (11.5-15.5) % Plt Count 255 (150-450) k/uL Neutrophils % 80 % Lymphocytes % 15 % Monocytes % 3 % Eosinophils % 1 % Basophils % 0 % Neutrophils # 8.0 H (1.3-7.7) k/uL Lymphocytes # 1.5 (1.0-4.8) k/uL Monocytes # 0.3 (0-1.0) k/uL Eosinophils # 0.1 (0-0.7) k/uL Basophils # 0.0 (0-0.2) k/uL Sodium 138 (137-145) mmol/L Potassium 4.6 (3.5-5.1) mmol/L Chloride 100 (98-107) mmol/L Carbon Dioxide 27 (22-30) mmol/L Anion Gap 11 mmol/L BUN 18 (9-20) mg/dL Creatinine 1.07 (0.66-1.25) mg/dL Est GFR (CKD-EPI)AfAm >90 (>60 ml/min/1.73 sqM) Est GFR (CKD-EPI)NonAf >90 (>60 ml/min/1.73 sqM) Glucose 159 H (74-99) mg/dL Plasma Lactic Acid Javier (0.7-2.0) mmol/L Calcium 10.0 (8.4-10.2) mg/dL Total Bilirubin 0.6 (0.2-1.3) mg/dL AST 51 (17-59) U/L ALT 81 H (4-49) U/L Alkaline Phosphatase 89 (38-126) U/L Total Protein 8.6 H (6.3-8.2) g/dL Albumin 5.2 H (3.5-5.0) g/dL Amylase 51 (30-110) U/L Lipase 87 (23-300) U/L Urine Color Light Red Urine Appearance Cloudy (Clear) Urine pH 5.0 (5.0-8.0) Ur Specific [place] 1.024 (1.001-1.035) Urine Protein 1+ H (Negative) Urine Glucose (UA) Negative (Negative) Urine Ketones Negative (Negative) Urine Blood Large H (Negative) Urine Nitrite Negative (Negative) Urine Bilirubin Negative (Negative) Urine Urobilinogen <2.0 (<2.0) mg/dL Ur Leukocyte Esterase Negative (Negative) Urine RBC >182 H (0-5) /hpf Urine WBC 1 (0-5) /hpf Urine WBC Clumps Occasional H (None) /hpf Urine Bacteria Occasional H (None) /hpf Urine Mucus Moderate H (None) /hpf 07/03/19 Range/Units 00:48 WBC (3.8-10.6) k/uL RBC (4.30-5.90) m/uL Hgb (13.0-17.5) gm/dL Hct (39.0-53.0) % MCV (80.0-100.0) fL MCH (25.0-35.0) pg MCHC (31.0-37.0) g/dL RDW (11.5-15.5) % Plt Count (150-450) k/uL Neutrophils % % Lymphocytes % % Monocytes % % Eosinophils % % Basophils % % Neutrophils # (1.3-7.7) k/uL Lymphocytes # (1.0-4.8) k/uL Monocytes # (0-1.0) k/uL Eosinophils # (0-0.7) k/uL Basophils # (0-0.2) k/uL Sodium (137-145) mmol/L Potassium (3.5-5.1) mmol/L Chloride (98-107) mmol/L Carbon Dioxide (22-30) mmol/L Anion Gap mmol/L BUN (9-20) mg/dL Creatinine (0.66-1.25) mg/dL Est GFR (CKD-EPI)AfAm (>60 ml/min/1.73 sqM) Est GFR (CKD-EPI)NonAf (>60 ml/min/1.73 sqM) Glucose (74-99) mg/dL Plasma Lactic Acid Javier 1.8 (0.7-2.0) mmol/L Calcium (8.4-10.2) mg/dL Total Bilirubin (0.2-1.3) mg/dL AST (17-59) U/L ALT (4-49) U/L Alkaline Phosphatase (38-126) U/L Total Protein (6.3-8.2) g/dL Albumin (3.5-5.0) g/dL Amylase (30-110) U/L Lipase (23-300) U/L Urine Color Urine Appearance (Clear) Urine pH (5.0-8.0) Ur Specific [place] (1.001-1.035) Urine Protein (Negative) Urine Glucose (UA) (Negative) Urine Ketones (Negative) Urine Blood (Negative) Urine Nitrite (Negative) Urine Bilirubin (Negative) Urine Urobilinogen (<2.0) mg/dL Ur Leukocyte Esterase (Negative) Urine RBC (0-5) /hpf Urine WBC (0-5) /hpf Urine WBC Clumps (None) /hpf Urine Bacteria (None) /hpf Urine Mucus (None) /hpf Disposition Clinical Impression: Kidney stone Disposition: HOME SELF-CARE Condition: Good Instructions (If sedation given, give patient instructions): Kidney Stones (ED) Prescriptions: Tamsulosin [Flomax] 0.4 mg PO DAILY #14 cap Hydrocodone/Acetaminophen [[place] 5-325] 1 each PO Q6HR PRN #20 tab PRN Reason: Pain Ondansetron Odt [Zofran ODT] 4 mg PO Q8HR PRN #10 tab PRN Reason: Nausea Is patient prescribed a controlled substance at d/c from ED?: No Referrals: Ariel Castellon DO [Primary Care Provider] - 1-2 days Thierry Guardado MD [STAFF PHYSICIAN] - 1-2 days
[2019-07-03 00:59] LABS: Basophils % (A) 0 %; Eosinophils # (A) 0.1 k/uL (0-0.7); Eosinophils % (A) 1 %; HCT 45.3 % (39.0-53.0); HGB 15.2 gm/dL (13.0-17.5); Lymphocytes # (A) 1.5 k/uL (1.0-4.8); Lymphocytes % (A) 15 %; MCH 30.3 pg (25.0-35.0); MCHC 33.5 g/dL (31.0-37.0); MCV 90.4 fL (80.0-100.0); Mean Platelet Volume 6.8; Monocytes # (A) 0.3 k/uL (0-1.0); Monocytes % (A) 3 %; Neutrophils % (A) 80 %; Platelet Count 255 k/uL (150-450); RBC 5.02 m/uL (4.30-5.90); RDW 12.9 % (11.5-15.5)
[2019-07-03 01:05] LABS: Appearance,Urine Cloudy (Clear); Bacteria,Urine Occasional /hpf; Bilirubin,Urine Negative (Negative); Blood,Urine Large (Negative); Color,Urine Light Red; Glucose,Urine (UA) Negative (Negative); Ketones,Urine Negative (Negative); Leukocyte Esterase,Urine Negative (Negative); Mucus,Urine Moderate /hpf; Nitrite,Urine Negative (Negative); Protein,Urine 1+ (Negative); RBC,Urine >182 /hpf (0-5); Specific Gravity,Urine 1.024 (1.001-1.035); Urobilinogen,Urine <2.0 mg/dL (<2.0); WBC,Urine 1 /hpf (0-5)
[2019-07-03 01:10] LABS: ALT 81 U/L (4-49); AST 51 U/L (17-59); African American GFR (CKD) >90 (>60 ml/min/1.73 sqM); Albumin 5.2 g/dL (3.5-5.0); Alkaline Phosphatase 89 U/L (38-126); Amylase 51 U/L (30-110); Anion Gap 11 mmol/L; Blood Urea Nitrogen 18 mg/dL (9-20); Carbon Dioxide 27 mmol/L (22-30); Chloride 100 mmol/L (98-107); Glucose 159 mg/dL (74-99); Non-African American GFR(CKD) >90 (>60 ml/min/1.73 sqM); Potassium 4.6 mmol/L (3.5-5.1); Sodium 138 mmol/L (137-145); Total Bilirubin 0.6 mg/dL (0.2-1.3); Total Protein 8.6 g/dL (6.3-8.2)
[2019-07-03] MEDS ORDERED: TAMSULOSIN 0.4 MG CAP.ER.24H PO STA (01:23)
--- NOTE | 2019-07-03 01:25 | XR ---
EXAMINATION TYPE: XR KUB DATE OF EXAM: 07/03/2019 COMPARISON: 06/18/2019 HISTORY: Pain. Calculus. Left ureteral stone. TECHNIQUE: 2 views upright FINDINGS: There is no sign of intestinal obstruction or pneumoperitoneum. Fecal pattern is normal. Th ere is no evidence of a mass. I see no pathologic calcifications over the kidneys. Lung bases are beth ar. There is no evidence of bony destructive process. IMPRESSION: Nonacute abdomen. No sign of urinary tract calculus. No adverse change compared to old ex am.
[2019-07-03 04:21] VITALS: BP 150/85; PULSE 91; RESP 17; TEMP 97.7
== END 2019-07-03 04:24 | disposition home or self-care (01) ==
LOC: EC 23:19
DX: N20.0 Calculus of kidney (principal); K21.9 Gastro-esophageal reflux disease without esophagitis; I10 Essential (primary) hypertension; Z87.19 Personal history of other diseases of the digestive system; Z79.899 Other long term (current) drug therapy
CPT/HCPCS: 36415; 80053; 82150; 83605; 83690; 85025; 81001; 74018; 99284; 96374; 96375 ×2; 96376; J2405; J1885; J1170

== ENCOUNTER → 2019-07-18 | Outpatient (CLI) | payer OTHER ==
--- NOTE | 2019-07-18 11:30 | XR ---
EXAMINATION TYPE: XR KUB DATE OF EXAM: 07/18/2019 HISTORY: Pain Comparison: 07/03/2019 Single KUB is submitted for interpretation. Findings: Right renal calculi: None Visualized. Right ureteral calculi: None Visualized. Left renal calculi: None Visualized. Left ureteral calculi: None Visualized. Pelvic calcifications: None Visualized. Bowel gas pattern is unremarkable. No free air. No mass effects. IMPRESSION: 1. No distinct radiopaque calculus identified at this time.
== END | disposition home or self-care (01) ==
LOC: RADXRMAIN 11:04
PROVIDERS: ATTEND Urology
DX: N20.1 Calculus of ureter (principal); N13.30 Unspecified hydronephrosis
CPT/HCPCS: 74018

== ENCOUNTER → 2019-07-19 | Outpatient (CLI) | payer OTHER ==
--- NOTE | 2019-07-19 12:51 | US ---
EXAMINATION TYPE: US kidneys/renal and bladder DATE OF EXAM: 07/19/2019 COMPARISON: CT 06/18/2019 CLINICAL HISTORY: N20.1 calculus of ureter, N13.30 Hydronephrosis. EXAM MEASUREMENTS: Right Kidney: 10.5 x 6.2 x 5.0 cm Left Kidney: 11.3 x 5.6 x 5.0 cm Right Kidney: No hydronephrosis or masses seen. There is an echogenic within the mid right nonobstru cting renal stone. Left Kidney: No hydronephrosis or masses seen Bladder: wnl Bilateral Jets seen: Yes Urinary bladder. Posterior wall is normal. IMPRESSION: 1. Small nonobstructing renal stone right mid kidney
== END | disposition home or self-care (01) ==
LOC: RADUSWWP 11:08
PROVIDERS: ATTEND Urology
DX: N20.0 Calculus of kidney (principal); N13.30 Unspecified hydronephrosis
CPT/HCPCS: 76770

== ENCOUNTER 2019-08-13 03:19 | Emergency (ER) | payer OTHER ==
[2019-08-13] MEDS ORDERED: KETOROLAC 30 MG/ML 1 ML VIAL IVP STA (03:30)
[2019-08-13] MEDS ORDERED: SODIUM CHLORIDE 0.9% 1,000 ML IV ONE (03:40)
--- NOTE | 2019-08-13 03:42 | ED ---
Abdominal Pain HPI - General Chief Complaint: Abdominal Pain Stated Complaint: Kidney stones Time Seen by Provider: 08/13/19 03:39 Source: patient Mode of arrival: ambulatory Limitations: no limitations - History of Present Illness Initial Comments: Reyes is a 34-year-old male with a history of recurrent kidney stones requiring lithotripsy in the past. Patient presents the ER today with concern that he is having left-sided kidney stone. Patient reports he noted hematuria 2 days ago, it seemed to be improving throughout the day yesterday but he woke from sleep with stabbing left-sided flank pain with associated nausea and vomiting identical to previous kidney stones. Patient denies recent illness. - Related Data Home Medications Medication Instructions Recorded Confirmed Multivitamins, Thera [Multivitamin 1 tab PO HS 05/22/18 06/18/19 (formulary)] Artificial Tears-Hypromellose 1 drops LEFT EYE Q2H 06/18/19 06/18/19 [Artificial Tear Drops] Cyclobenzaprine [Flexeril] 10 mg PO HS PRN 06/18/19 06/18/19 Losartan Potassium [Cozaar] 100 mg PO HS 06/18/19 06/18/19 Mesalamine [Lialda] 4.8 gm PO HS 06/18/19 06/18/19 Ofloxacin 0.3% Ophth Soln [Ocuflox 1 drops LEFT EYE TID 06/18/19 06/18/19 Ophth Soln] Omeprazole 20 mg PO HS 06/18/19 06/18/19 Previous Rx's Medication Instructions Recorded Oxybutynin Chloride [Oxybutynin 10 mg PO DAILY #10 tab.er.24 06/20/19 Chloride ER] Tamsulosin [Flomax] 0.4 mg PO DAILY #10 cap 06/20/19 Hydrocodone/Acetaminophen [[place] 1 each PO Q6HR PRN #20 tab 07/03/19 5-325] Ondansetron Odt [Zofran ODT] 4 mg PO Q8HR PRN #10 tab 07/03/19 Tamsulosin [Flomax] 0.4 mg PO DAILY #14 cap 07/03/19 Tamsulosin [Flomax] 0.4 mg PO DAILY #7 cap 08/13/19 Allergies Allergy/AdvReac Type Severity Reaction Status Date / Time No Known Allergies Allergy Verified 08/13/19 03:26 Review of Systems ROS Statement: Those systems with pertinent positive or pertinent negative responses have been documented in the HPI. ROS Other: All systems not noted in ROS Statement are negative. Past Medical History Past Medical History: GERD/Reflux, Hypertension, Sleep Apnea/CPAP/BIPAP Additional Past Medical History / Comment(s): DOES NOT USE CPAP. CHRONIC LOWER B ACK PAIN, WITH SCIATIC NERVE PAIN. colitis, DDD, Left eye injury, kidney stones History of Any Multi-Drug Resistant Organisms: None Reported Past Surgical History: Orthopedic Surgery Additional Past Surgical History / Comment(s): neck fusion, lower back surgery, wrist surgery-cyst removal. right shoulder cyst removal, left arm sharpnel removal. Past Anesthesia/Blood Transfusion Reactions: No Reported Reaction Additional Past Anesthesia/Blood Transfusion Reaction / Comment(s): HAS NEVER HAD ANESTHESIA Past Psychological History: No Psychological Hx Reported Smoking Status: Former smoker Past Alcohol Use History: None Reported Past Drug Use History: None Reported - Past Family History Mother Family Medical History: No Reported History General Exam - General Exam Comments Initial Comments: Physical Exam GENERAL: Patient is well-developed and well-nourished. Patient is nontoxic and well-hydrated and is in no distress. HENT: Normocephalic, Atraumatic. EYES: PERRL, EOMI PULMONARY: Unlabored respirations. CARDIOVASCULAR: RRR Warm and well perfused extremities ABDOMEN: Non-distended SKIN: No rashes or bruising : Deferred NEUROLOGIC: Alert and oriented Normal speech Normal gait MUSCULOSKELETAL: Moving all extremities with no apparent injury PSYCHIATRIC: No SI/HI Limitations: no limitations Course Vital Signs 08/13/19 08/13/19 08/13/19 03:24 05:12 06:02 Temperature 98.0 F Pulse Rate 81 87 Respiratory 38 H 20 Rate Blood Pressure 162/98 156/106 139/91 O2 Sat by Pulse 99 100 Oximetry Medical Decision Making - Medical Decision Making She was seen and evaluated history is deemed patient medical record Wasn't 34-year-old male with a history of recurrent stones presenting with renal colic urinalysis with hematuria consistent with previous stones Patient received Toradol with some improvement and then received Zofran and morphine X-ray revealed no large stones, patient's pain was significantly improved after morphine patient's comfortable with plan for discharge home with Tylenol 3, Zofran, Flomax patient will contact his urologist Dr. Guardado on Thursday for fo llow-up - Lab Data Result diagrams: 08/13/19 04:50 08/13/19 04:50 Lab Results 08/13/19 08/13/19 08/13/19 Range/Units 04:50 04:50 04:50 WBC 7.0 (3.8-10.6) k/uL RBC 4.78 (4.30-5.90) m/uL Hgb 14.8 (13.0-17.5) gm/dL Hct 42.5 (39.0-53.0) % MCV 88.9 (80.0-100.0) fL MCH 31.0 (25.0-35.0) pg MCHC 34.8 (31.0-37.0) g/dL RDW 13.4 (11.5-15.5) % Plt Count 256 (150-450) k/uL Neutrophils % 52 % Lymphocytes % 38 % Monocytes % 6 % Eosinophils % 2 % Basophils % 0 % Neutrophils # 3.7 (1.3-7.7) k/uL Lymphocytes # 2.7 (1.0-4.8) k/uL Monocytes # 0.4 (0-1.0) k/uL Eosinophils # 0.1 (0-0.7) k/uL Basophils # 0.0 (0-0.2) k/uL Sodium 139 (137-145) mmol/L Potassium 4.2 (3.5-5.1) mmol/L Chloride 104 (98-107) mmol/L Carbon Dioxide 24 (22-30) mmol/L Anion Gap 11 mmol/L BUN 13 (9-20) mg/dL Creatinine 1.09 (0.66-1.25) mg/dL Est GFR (CKD-EPI)AfAm >90 (>60 ml/min/1.73 sqM) Est GFR (CKD-EPI)NonAf 87 (>60 ml/min/1.73 sqM) Glucose 159 H (74-99) mg/dL Calcium 9.9 (8.4-10.2) mg/dL Total Bilirubin 0.4 (0.2-1.3) mg/dL AST 51 (17-59) U/L ALT 71 H (4-49) U/L Alkaline Phosphatase 89 (38-126) U/L Total Protein 8.0 (6.3-8.2) g/dL Albumin 4.8 (3.5-5.0) g/dL Urine Color Yellow Urine Appearance Cloudy (Clear) Urine pH 5.5 (5.0-8.0) Ur Specific [place] 1.019 (1.001-1.035) Urine Protein Trace H (Negative) Urine Glucose (UA) Negative (Negative) Urine Ketones Negative (Negative) Urine Blood Large H (Negative) Urine Nitrite Negative (Negative) Urine Bilirubin Negative (Negative) Urine Urobilinogen <2.0 (<2.0) mg/dL Ur Leukocyte Esterase Negative (Negative) Urine RBC >182 H (0-5) /hpf Urine WBC 2 (0-5) /hpf Urine Bacteria Rare H (None) /hpf Urine Mucus Rare H (None) /hpf Disposition Clinical Impression: Renal colic Disposition: HOME SELF-CARE Condition: Stable Instructions (If sedation given, give patient instructions): Kidney Stones (ED) Prescriptions: Tamsulosin [Flomax] 0.4 mg PO DAILY #7 cap Is patient prescribed a controlled substance at d/c from ED?: No Referrals: Ariel Castellon DO [Primary Care Provider] - 1-2 days Thierry Guardado MD [STAFF PHYSICIAN] - 1-2 days
--- NOTE | 2019-08-13 03:57 | XR ---
EXAMINATION TYPE: XR KUB DATE OF EXAM: 08/13/2019 COMPARISON: 07/18/2019 HISTORY: Renal calculi TECHNIQUE: 2 views upright FINDINGS: There is no sign of intestinal obstruction or pneumoperitoneum. Fecal pattern is normal. Th ere is no sign of a mass. Lung bases are clear. There are no pathologic calcifications over the kidne ys. IMPRESSION: Nonacute abdomen. No change.
[2019-08-13] MEDS ORDERED: ONDANSETRON 4 MG/2 ML VIAL IVP STA (05:16)
[2019-08-13] MEDS ORDERED: MORPHINE SULFATE 4 MG/ML SYRINGE IVP STA (05:16)
[2019-08-13 05:28] LABS: Basophils % (A) 0 %; Eosinophils # (A) 0.1 k/uL (0-0.7); Eosinophils % (A) 2 %; HCT 42.5 % (39.0-53.0); HGB 14.8 gm/dL (13.0-17.5); Lymphocytes # (A) 2.7 k/uL (1.0-4.8); Lymphocytes % (A) 38 %; MCHC 34.8 g/dL (31.0-37.0); MCV 88.9 fL (80.0-100.0); Mean Platelet Volume 7.1; Monocytes # (A) 0.4 k/uL (0-1.0); Monocytes % (A) 6 %; Neutrophils # (A) 3.7 k/uL (1.3-7.7); Neutrophils % (A) 52 %; Platelet Count 256 k/uL (150-450); RBC 4.78 m/uL (4.30-5.90); RDW 13.4 % (11.5-15.5)
[2019-08-13 05:32] LABS: Appearance,Urine Cloudy (Clear); Bacteria,Urine Rare /hpf; Bilirubin,Urine Negative (Negative); Blood,Urine Large (Negative); Color,Urine Yellow; Glucose,Urine (UA) Negative (Negative); Ketones,Urine Negative (Negative); Leukocyte Esterase,Urine Negative (Negative); Mucus,Urine Rare /hpf; Nitrite,Urine Negative (Negative); PH, Urine 5.5 (5.0-8.0); Protein,Urine Trace (Negative); RBC,Urine >182 /hpf (0-5); Specific Gravity,Urine 1.019 (1.001-1.035); Urobilinogen,Urine <2.0 mg/dL (<2.0); WBC,Urine 2 /hpf (0-5)
[2019-08-13 05:48] LABS: ALT 71 U/L (4-49); AST 51 U/L (17-59); African American GFR (CKD) >90 (>60 ml/min/1.73 sqM); Albumin 4.8 g/dL (3.5-5.0); Alkaline Phosphatase 89 U/L (38-126); Anion Gap 11 mmol/L; Blood Urea Nitrogen 13 mg/dL (9-20); Calcium 9.9 mg/dL (8.4-10.2); Carbon Dioxide 24 mmol/L (22-30); Chloride 104 mmol/L (98-107); Glucose 159 mg/dL (74-99); Non-African American GFR(CKD) 87 (>60 ml/min/1.73 sqM); Potassium 4.2 mmol/L (3.5-5.1); Sodium 139 mmol/L (137-145); Total Bilirubin 0.4 mg/dL (0.2-1.3)
[2019-08-13] MEDS ORDERED: ONDANSETRON 4 MG ODT STARTER PACK 2 TAB BTL PO STA (06:29)
[2019-08-13] MEDS ORDERED: ACET/COD 300 MG/30 MG STARTER PACK 6 TAB BTL PO STA (06:29)
[2019-08-13 06:48] VITALS: BP 128/86; PULSE 84; RESP 17; TEMP 97.3
== END 2019-08-13 06:51 | disposition home or self-care (01) ==
LOC: EC 03:19
DX: N23 Unspecified renal colic (principal); R31.9 Hematuria, unspecified; K21.9 Gastro-esophageal reflux disease without esophagitis; I10 Essential (primary) hypertension; G47.30 Sleep apnea, unspecified; Z99.89 Dependence on other enabling machines and devices; Z87.19 Personal history of other diseases of the digestive system; Z87.442 Personal history of urinary calculi; Z87.891 Personal history of nicotine dependence; Z98.1 Arthrodesis status; Z79.899 Other long term (current) drug therapy
CPT/HCPCS: 36415; 80053; 85025; 81001; 74018; 99284; 96374; 96375 ×2; 96361; J2270; J2405; J1885; S0119

== ENCOUNTER 2019-12-13 02:33 | Emergency (ER) | payer OTHER ==
[2019-12-13 02:39] VITALS: RESP 18; TEMP 98
[2019-12-13] MEDS ORDERED: SODIUM CHLORIDE 0.9% 1,000 ML IV STA ×2 (02:51)
[2019-12-13] MEDS ORDERED: KETOROLAC 15 MG/ML 1 ML VIAL IVP STA (02:51)
[2019-12-13] MEDS ORDERED: HYDROmorphone 0.5 MG/0.5 ML SYRINGE IVP STA (02:51)
[2019-12-13] MEDS ORDERED: SODIUM CHLORIDE 0.9% 500 ML 500 ML IV STA (02:51)
[2019-12-13] MEDS ORDERED: ONDANSETRON 4 MG/2 ML VIAL IVP STA (02:51)
--- NOTE | 2019-12-13 02:54 | ED ---
Recheck HPI - General Chief Complaint: Urogenital Stated Complaint: Kidney Stones Time Seen by Provider: 12/13/19 02:39 Source: patient, RN notes reviewed, old records reviewed Mode of arrival: ambulatory Limitations: no limitations - History of Present Illness Initial Comments: This is a 34-year-old male DF for evaluation of severe left flank pain. No history of kidney stone coming in with severe increasing kidney stone pain. Positive nausea positive vomiting. Significant sweating. Patient otherwise is without significant complaint MD Complaint: other (Recheck inc pain from kidney stone) -: days(s) Returns Today for: persistent/worsening pain related to initial visit Symptoms Since Prior Visit: worsening pain Associated Symptoms: chills, nausea, abdominal pain Treatments Prior to Arrival: Given Pain Meds on - Related Data Home Medications Medication Instructions Recorded Confirmed Multivitamins, Thera [Multivitamin 1 tab PO HS 05/22/18 06/18/19 (formulary)] Artificial Tears-Hypromellose 1 drops LEFT EYE Q2H 06/18/19 06/18/19 [Artificial Tear Drops] Cyclobenzaprine [Flexeril] 10 mg PO HS PRN 06/18/19 06/18/19 Losartan Potassium [Cozaar] 100 mg PO HS 06/18/19 06/18/19 Mesalamine [Lialda] 4.8 gm PO HS 06/18/19 06/18/19 Ofloxacin 0.3% Ophth Soln [Ocuflox 1 drops LEFT EYE TID 06/18/19 06/18/19 Ophth Soln] Omeprazole 20 mg PO HS 06/18/19 06/18/19 Previous Rx's Medication Instructions Recorded Oxybutynin Chloride [Oxybutynin 10 mg PO DAILY #10 tab.er.24 06/20/19 Chloride ER] Tamsulosin [Flomax] 0.4 mg PO DAILY #10 cap 06/20/19 Hydrocodone/Acetaminophen [[place] 1 each PO Q6HR PRN #20 tab 07/03/19 5-325] Ondansetron Odt [Zofran ODT] 4 mg PO Q8HR PRN #10 tab 07/03/19 Tamsulosin [Flomax] 0.4 mg PO DAILY #14 cap 07/03/19 Tamsulosin [Flomax] 0.4 mg PO DAILY #7 cap 08/13/19 Allergies Allergy/AdvReac Type Severity Reaction Status Date / Time No Known Allergies Allergy Verified 12/13/19 02:39 Review of Systems ROS Statement: Those systems with pertinent positive or pertinent negative responses have been documented in the HPI. ROS Other: All systems not noted in ROS Statement are negative. Past Medical History Past Medical History: GERD/Reflux, Hypertension, Sleep Apnea/CPAP/BIPAP Additional Past Medical History / Comment(s): DOES NOT USE CPAP. CHRONIC LOWER BACK PAIN, WITH SCIATIC NERVE PAIN. colitis, DDD, Left eye injury, kidney stones History of Any Multi-Drug Resistant Organisms: None Reported Past Surgical History: Orthopedic Surgery Additional Past Surgical History / Comment(s): neck fusion, lower back surgery, wrist surgery-cyst removal. right shoulder cyst removal, left arm sharpnel removal. Past Anesthesia/Blood Transfusion Reactions: No Reported Reaction Additional Past Anesthesia/Blood Transfusion Reaction / Comment(s): HAS NEVER HAD ANESTHESIA Past Psychological History: No Psychological Hx Reported Smoking Status: Never smoker Past Alcohol Use History: None Reported Past Drug Use History: None Reported - Past Family History Mother Family Medical History: No Reported History General Exam Limitations: no limitations General appearance: alert, in no apparent distress, anxious, in distress Head exam: Present: atraumatic, normocephalic, normal inspection Eye exam: Present: normal appearance, PERRL, EOMI. Absent: scleral icterus, conjunctival injection, periorbital swelling ENT exam: Present: normal exam, mucous membranes moist Neck exam: Present: normal inspection. Absent: tenderness, meningismus, lymphadenopathy Respiratory exam: Present: normal lung sounds bilaterally. Absent: respiratory distress, wheezes, rales, rhonchi, stridor Cardiovascular Exam: Present: regular rate, normal rhythm, normal heart sounds. Absent: systolic murmur, diastolic murmur, rubs, gallop, clicks GI/Abdominal exam: Present: soft, normal bowel sounds. Absent: distended, tenderness, guarding, rebound, rigid Extremities exam: Present: normal inspection, full ROM, normal capillary refill. Absent: tenderness, pedal edema, joint swelling, calf tenderness Back exam: Present: normal inspection Neurological exam: Present: alert, oriented X3, CN II-XII intact Psychiatric exam: Present: normal affect, normal mood Skin exam: Present: warm, dry, intact, normal color. Absent: rash Course Vital Signs 12/13/19 02:36 Temperature 98 F Pulse Rate 84 Respiratory 18 Rate Blood Pressure 145/89 O2 Sat by Pulse 98 Oximetry - Reevaluation(s) Reevaluation #1: 12/13/19 02:54 Medical record is reviewed Reevaluation #2: 12/13/19 04:09 Patient has adequate pain control currently Reevaluation #3: 12/13/19 04:09 spoke patient regarding findings and questions are answered Medical Decision Making - Medical Decision Making 4 male DF for evaluation patient Dese for recurrent kidney stone. Kidney stone pain is controlled, patient will follow-up with urology this week - Lab Data Result diagrams: 12/13/19 02:47 12/13/19 02:47 Lab Results 12/13/19 12/13/19 12/13/19 Range/Units 02:47 02:47 02:47 WBC 8.7 (3.8-10.6) k/uL RBC 4.73 (4.30-5.90) m/uL Hgb 14.5 (13.0-17.5) gm/dL Hct 42.3 (39.0-53.0) % MCV 89.5 (80.0-100.0) fL MCH 30.6 (25.0-35.0) pg MCHC 34.2 (31.0-37.0) g/dL RDW 12.6 (11.5-15.5) % Plt Count 234 (150-450) k/uL Neutrophils % 49 % Lymphocytes % 41 % Monocytes % 5 % Eosinophils % 2 % Basophils % 1 % Neutrophils # 4.2 (1.3-7.7) k/uL Lymphocytes # 3.6 (1.0-4.8) k/uL Monocytes # 0.4 (0-1.0) k/uL Eosinophils # 0.2 (0-0.7) k/uL Basophils # 0.1 (0-0.2) k/uL Sodium 139 (137-145) mmol/L Potassium 4.0 (3.5-5.1) mmol/L Chloride 106 (98-107) mmol/L Carbon Dioxide 23 (22-30) mmol/L Anion Gap 10 mmol/L BUN 23 H (9-20) mg/dL Creatinine 1.59 H (0.66-1.25) mg/dL Est GFR (CKD-EPI)AfAm 64 (>60 ml/min/1.73 sqM) Est GFR (CKD-EPI)NonAf 55 (>60 ml/min/1.73 sqM) Glucose 138 H (74-99) mg/dL Calcium 9.5 (8.4-10.2) mg/dL Total Bilirubin 0.4 (0.2-1.3) mg/dL AST 35 (17-59) U/L ALT 48 (4-49) U/L Alkaline Phosphatase 70 (38-126) U/L Total Protein 7.7 (6.3-8.2) g/dL Albumin 4.7 (3.5-5.0) g/dL Lipase (23-300) U/L Urine Color Yellow Urine Appearance Clear (Clear) Urine pH 5.5 (5.0-8.0) Ur Specific [place] 1.027 (1.001-1.035) Urine Protein Trace H (Negative) Urine Glucose (UA) Negative (Negative) Urine Ketones Negative (Negative) Urine Blood Large H (Negative) Urine Nitrite Negative (Negative) Urine Bilirubin Negative (Negative) Urine Urobilinogen 2.0 (<2.0) mg/dL Ur Leukocyte Esterase Negative (Negative) Urine RBC >182 H (0-5) /hpf Urine WBC 2 (0-5) /hpf Urine Mucus Rare H (None) /hpf 12/13/19 Range/Units 02:47 WBC (3.8-10.6) k/uL RBC (4.30-5.90) m/uL Hgb (13.0-17.5) gm/dL Hct (39.0-53.0) % MCV (80.0-100.0) fL MCH (25.0-35.0) pg MCHC (31.0-37.0) g/dL RDW (11.5-15.5) % Plt Count (150-450) k/uL Neutrophils % % Lymphocytes % % Monocytes % % Eosinophils % % Basophils % % Neutrophils # (1.3-7.7) k/uL Lymphocytes # (1.0-4.8) k/uL Monocytes # (0-1.0) k/uL Eosinophils # (0-0.7) k/uL Basophils # (0-0.2) k/uL Sodium (137-145) mmol/L Potassium (3.5-5.1) mmol/L Chloride (98-107) mmol/L Carbon Dioxide (22-30) mmol/L Anion Gap mmol/L BUN (9-20) mg/dL Creatinine (0.66-1.25) mg/dL Est GFR (CKD-EPI)AfAm (>60 ml/min/1.73 sqM) Est GFR (CKD-EPI)NonAf (>60 ml/min/1.73 sqM) Glucose (74-99) mg/dL Calcium (8.4-10.2) mg/dL Total Bilirubin (0.2-1.3) mg/dL AST (17-59) U/L ALT (4-49) U/L Alkaline Phosphatase (38-126) U/L Total Protein (6.3-8.2) g/dL Albumin (3.5-5.0) g/dL Lipase 97 (23-300) U/L Urine Color Urine Appearance (Clear) Urine pH (5.0-8.0) Ur Specific [place] (1.001-1.035) Urine Protein (Negative) Urine Glucose (UA) (Negative) Urine Ketones (Negative) Urine Blood (Negative) Urine Nitrite (Negative) Urine Bilirubin (Negative) Urine Urobilinogen (<2.0) mg/dL Ur Leukocyte Esterase (Negative) Urine RBC (0-5) /hpf Urine WBC (0-5) /hpf Urine Mucus (None) /hpf - Radiology Data Radiology results: report reviewed (X-ray KUB is negative), image reviewed Disposition Clinical Impression: Intractable pain, Kidney stone, Left ureteral calculus Disposition: HOME SELF-CARE Condition: Good Instructions (If sedation given, give patient instructions): Kidney Stones (ED), Renal Colic (ED) Is patient prescribed a controlled substance at d/c from ED?: No Referrals: Thierry Guardado MD [STAFF PHYSICIAN] - 1-2 days
[2019-12-13 02:58] LABS: Basophils # (A) 0.1 k/uL (0-0.2); Basophils % (A) 1 %; Eosinophils # (A) 0.2 k/uL (0-0.7); Eosinophils % (A) 2 %; HCT 42.3 % (39.0-53.0); HGB 14.5 gm/dL (13.0-17.5); Lymphocytes # (A) 3.6 k/uL (1.0-4.8); Lymphocytes % (A) 41 %; MCH 30.6 pg (25.0-35.0); MCHC 34.2 g/dL (31.0-37.0); MCV 89.5 fL (80.0-100.0); Mean Platelet Volume 6.4; Monocytes # (A) 0.4 k/uL (0-1.0); Monocytes % (A) 5 %; Neutrophils # (A) 4.2 k/uL (1.3-7.7); Neutrophils % (A) 49 %; Platelet Count 234 k/uL (150-450); RBC 4.73 m/uL (4.30-5.90); RDW 12.6 % (11.5-15.5); WBC 8.7 k/uL (3.8-10.6)
[2019-12-13 03:03] LABS: Appearance,Urine Clear (Clear); Bilirubin,Urine Negative (Negative); Blood,Urine Large (Negative); Color,Urine Yellow; Glucose,Urine (UA) Negative (Negative); Ketones,Urine Negative (Negative); Leukocyte Esterase,Urine Negative (Negative); Mucus,Urine Rare /hpf; Nitrite,Urine Negative (Negative); PH, Urine 5.5 (5.0-8.0); Protein,Urine Trace (Negative); RBC,Urine >182 /hpf (0-5); Specific Gravity,Urine 1.027 (1.001-1.035); WBC,Urine 2 /hpf (0-5)
[2019-12-13 03:07] LABS: Albumin 4.7 g/dL (3.5-5.0); Calcium 9.5 mg/dL (8.4-10.2); Total Bilirubin 0.4 mg/dL (0.2-1.3); Total Protein 7.7 g/dL (6.3-8.2)
--- NOTE | 2019-12-13 03:33 | XR ---
EXAM: XR Abdomen, 2 Views CLINICAL HISTORY: ITS.REASON XR Reason: abdominal pain TECHNIQUE: Frontal upright views of the abdomen/pelvis. COMPARISON: Abdominal radiograph 08/13/19 FINDINGS: Intraperitoneal space: No free air. Gastrointestinal tract: Unremarkable. No dilation. Bones/joints: Unremarkable. IMPRESSION: Normal abdominal x-rays.
[2019-12-13] MEDS ORDERED: Acetaminophen-Codeine 300-30mg TAB PO STA (04:12)
[2019-12-13] MEDS ORDERED: ACET/COD 300 MG/30 MG STARTER PACK 6 TAB BTL PO STA (04:12)
[2019-12-13] MEDS ORDERED: HYDROmorphone 1 MG/ML 1 ML SYRINGE IVP STA (04:35)
[2019-12-13 05:41] VITALS: BP 123/63; PULSE 73
== END 2019-12-13 05:55 | disposition home or self-care (01) ==
LOC: EC 02:33
DX: N20.2 Calculus of kidney with calculus of ureter (principal); K21.9 Gastro-esophageal reflux disease without esophagitis; I10 Essential (primary) hypertension; G89.29 Other chronic pain; M54.5 Low back pain; Z87.19 Personal history of other diseases of the digestive system; Z79.899 Other long term (current) drug therapy
CPT/HCPCS: 36415; 80053; 83690; 85025; 81001; 74018; 96374; 96375 ×2; 96376; 96361 ×3; 99284; J2405; J1170 ×2; J1885

== ENCOUNTER → 2020-01-25 | Outpatient (CLI) | payer OTHER ==
--- NOTE | 2020-01-25 08:08 | US ---
EXAMINATION TYPE: US kidneys/renal and bladder DATE OF EXAM: 01/25/2020 COMPARISON: US, CT, KUB CLINICAL HISTORY: N20.0 CALCULUS OF KIDNEY. Pt states right flank pain, H/O stones EXAM MEASUREMENTS: Right Kidney: 12.5 x 5.5 x 5.2 cm Left Kidney: 11.2 x 5.5 x 5.2 cm Right Kidney: No evidence of hydro, possible calculus lower pole= 0.4 cm Left Kidney: No evidence of hydro, possible multiple calculi scattered throughout kidney, all approx 0.4 cm in size Bladder: wnl Bilateral Jets seen: Yes There is no evidence for hydronephrosis at this point in time. Nephrolithiasis seen bilaterally. No m asses are identified. The urinary bladder is anechoic. Bilateral ureteral jets are seen. IMPRESSION: Bilateral nonobstructing nephrolithiasis.
--- NOTE | 2020-01-25 08:09 | US ---
EXAMINATION TYPE: US duplex aorta DATE OF EXAM: 01/25/2020 COMPARISON: NONE CLINICAL HISTORY: N20.0 CALCULUS OF KIDNEY. Calculus of kidney EXAM MEASUREMENTS: Abdominal Aorta: Proximal: 2.1 x 2.2 cm Mid: 2.0 x 1.6 cm Distal: 1.8 x 1.9 cm Bifurcation: ROMY: 1.0 x 1.1 cm YAMILKA: 1.2 x 1.4 cm IMPRESSION: No evidence for abdominal aortic aneurysm.
== END | disposition home or self-care (01) ==
LOC: RADUSWWP 07:00
PROVIDERS: ATTEND Physician Assistant Medical
DX: N20.0 Calculus of kidney (principal)
CPT/HCPCS: 76770; 93979

== ENCOUNTER → 2020-04-30 | Outpatient (CLI) | payer OTHER ==
--- NOTE | 2020-04-30 12:13 | XR ---
EXAMINATION TYPE: XR cervical spine comp DATE OF EXAM: 04/30/2020 COMPARISON: 03/10/2018 HISTORY: 34-year-old male fusion of cervical spine. [id number] TECHNIQUE: 5 views FINDINGS: No predental space widening or prevertebral soft tissue swelling. There are postsurgical changes of C 4-C6 ACDF. Alignment is maintained. Disc space along the nonfused levels are maintained. On the oblique views, no significant bony neuroforaminal narrowing is identified. IMPRESSION: Status post C4-C6 ACDF. No malalignment.
== END ==
LOC: RADXRYALE 09:48
PROVIDERS: ATTEND Physician Assistant Medical
DX: Z48.89 Encounter for other specified surgical aftercare (principal); Z98.1 Arthrodesis status
CPT/HCPCS: 72050

== ENCOUNTER 2020-09-28 19:48 | Emergency (ER) | payer OTHER ==
[2020-09-28] MEDS ORDERED: IBUPROFEN 800 MG TAB PO STA (20:02)
--- NOTE | 2020-09-28 20:29 | XR ---
EXAMINATION TYPE: XR chest 2V DATE OF EXAM: 09/28/2020 COMPARISON: None HISTORY: Cough TECHNIQUE: Frontal and lateral views of the chest are obtained. FINDINGS: There is no focal air space opacity, pleural effusion, or pneumothorax seen. The cardiac silhouette size is within normal limits. The osseous structures are intact. IMPRESSION: No acute cardiopulmonary process.
[2020-09-28] MEDS ORDERED: ACETAMINOPHEN TAB 500 MG TAB PO STA (21:25)
[2020-09-28] MEDS ORDERED: CASIRIVIMAB (REGN10933) (EUA) 600 MG, IMDEVIMAB (REGN10987) (EUA) 600 MG in SODIUM CHLO... IVPB ONE (21:45)
[2020-09-28] MEDS ORDERED: SODIUM CHLORIDE 0.9% 50 ML IVPB ONE (21:45)
--- NOTE | 2020-09-28 22:42 | ED ---
General Adult HPI - General Chief complaint: Shortness of Breath Stated complaint: SOB,Pain all over Time Seen by Provider: 09/28/20 19:54 Source: patient, RN notes reviewed Mode of arrival: wheelchair Limitations: no limitations - History of Present Illness Initial comments: Patient is a 35-year-old male that presents to the emergency department compla ining of a one-day history of cough and congestion fever. He notes that he is vaccinated against Covid. He notes that his had it several months ago. Patient noted that it came out of nowhere. He notes that he feels cold and his fevers. He denied any other issues or complaints at this time. He denied any chest pain headache nausea vomiting diarrhea constipation fatigue chills - Related Data Home Medications Medication Instructions Recorded Confirmed Losartan Potassium [Cozaar] 100 mg PO HS 06/18/19 09/28/20 Mesalamine [Lialda] 4.8 gm PO HS 06/18/19 09/28/20 DULoxetine HCL [Cymbalta] 60 mg PO HS 09/28/20 09/28/20 Hydrocodone/Acetaminophen [[place] 1 tab PO Q6HR PRN 09/28/20 09/28/20 5-325] Pramipexole [Mirapex] 0.125 mg PO HS 09/28/20 09/28/20 Allergies Allergy/AdvReac Type Severity Reaction Status Date / Time No Known Allergies Allergy Verified 09/28/20 20:17 Review of Systems ROS Statement: Those systems with pertinent positive or pertinent negative responses have been documented in the HPI. ROS Other: All systems not noted in ROS Statement are negative. Past Medical History Past Medical History: GERD/Reflux, Hypertension, Sleep Apnea/CPAP/BIPAP Additional Past Medical History / Comment(s): DOES NOT USE CPAP. CHRONIC LOWER BACK PAIN, WITH SCIATIC NERVE PAIN. colitis, DDD, Left eye injury, kidney stones History of Any Multi-Drug Resistant Organisms: None Reported Past Surgical History: Orthopedic Surgery Additional Past Surgical History / Comment(s): neck fusion, lower back surgery, wrist surgery-cyst removal. right shoulder cyst removal, left arm sharpnel removal.kidney surgery Past Anesthesia/Blood Transfusion Reactions: No Reported Reaction Additional Past Anesthesia/Blood Transfusion Reaction / Comment(s): HAS NEVER HAD ANESTHESIA Past Psychological History: No Psychological Hx Reported Smoking Status: Never smoker Past Alcohol Use History: None Reported Past Drug Use History: None Reported - Past Family History Mother Family Medical History: No Reported History General Exam Limitations: no limitations General appearance: alert, in no apparent distress Head exam: Present: atraumatic, normocephalic, normal inspection Eye exam: Present: normal appearance, PERRL, EOMI. Absent: scleral icterus, conjunctival injection, periorbital swelling Neck exam: Present: normal inspection Respiratory exam: Present: normal lung sounds bilaterally. Absent: respiratory distress, wheezes, rales, rhonchi, stridor Cardiovascular Exam: Present: regular rate, normal rhythm, normal heart sounds. Absent: systolic murmur, diastolic murmur, rubs, gallop, clicks Extremities exam: Present: normal inspection, full ROM, normal capillary refill. Absent: tenderness, pedal edema, joint swelling, calf tenderness Neurological exam: Present: alert, oriented X3 Psychiatric exam: Present: normal affect, normal mood Skin exam: Present: warm, dry, intact, normal color. Absent: rash Course Vital Signs 09/28/20 09/28/20 09/28/20 19:50 21:27 22:19 Temperature 101.4 F H 101 F H Pulse Rate 120 H 111 H 114 H Respiratory 22 20 20 Rate Blood Pressure 146/99 154/101 139/91 O2 Sat by Pulse 100 99 98 Oximetry Medical Decision Making - Medical Decision Making 35-year-old male complaining of fever chest congestion and cough times one. Vaccinated for Covid. Covid test, chest x-ray, 800 mg of Tylenol ordered ordered. Covid test positive. Chest x-ray shows no acute cardiopulmonary process. Patient does meet criteria for monoclonal antibiotic therapy and wishes to undergo the IV infusion. Case discussed with Dr. Avitia, patient can discharge home after IV infusion. - Lab Data Lab Results 09/28/20 Range/Units 20:10 Coronavirus (PCR) Detected A (Not Detectd) - Radiology Data Radiology results: report reviewed, image reviewed Chest x-ray: No acute cardiopulmonary process. Disposition Clinical Impression: COVID Disposition: HOME SELF-CARE Condition: Stable Instructions (If sedation given, give patient instructions): Coronavirus Disease 2019 (COVID-19) Additional Instructions: Please return to the Emergency Department if symptoms worsen or any other concerns. Conservative management with Tylenol Motrin [id number] for fever body aches and pains. Quarantine for 7-10 days per CBC guidelines. Is patient prescribed a controlled substance at d/c from ED?: No Referrals: Ariel Castellon DO [Primary Care Provider] - 1-2 days Time of Disposition: 22:42
[2020-09-28 23:44] VITALS: BP 123/83; PULSE 98; RESP 18; TEMP 98.2
== END 2020-09-28 23:49 | disposition home or self-care (01) ==
LOC: EC 19:48
DX: U07.1 COVID-19 (principal); I10 Essential (primary) hypertension; Z79.899 Other long term (current) drug therapy
CPT/HCPCS: 71046; 87635; 93005; 99285

== ENCOUNTER → 2022-02-27 | Outpatient (CLI) | payer BC ==
--- NOTE | 2022-02-28 06:52 | XR ---
EXAMINATION TYPE: XR shoulder complete RT DATE OF EXAM: 02/27/2022 4:05 PM INDICATION: Patient age:Male; 36 years old; Reason for study: [id number] RT SHLD PAIN; COMPARISON: Chest radiograph 09/28/2020 TECHNIQUE: The right shoulder was examined in AP, internally rotated and scapular Y projections. . FINDINGS: No evidence of acute osseous pathology, joint dislocation, or soft tissue swelling. The remaining por tions of the visualized chest are unremarkable. IMPRESSION: No acute osseous pathology.
== END | disposition home or self-care (01) ==
LOC: RADXRYALE 15:52
PROVIDERS: ATTEND Physician Assistant
DX: M25.511 Pain in right shoulder (principal)

== ENCOUNTER 2022-07-21 02:10 | Emergency (ER) | payer BC ==
[2022-07-21 02:15] VITALS: RESP 18; TEMP 98
[2022-07-21] MEDS ORDERED: KETOROLAC 15 MG/ML 1 ML VIAL IVP STA (02:27)
[2022-07-21] MEDS ORDERED: SODIUM CHLORIDE 0.9% 1,000 ML IV ONE (02:27)
[2022-07-21] MEDS ORDERED: ONDANSETRON 4 MG/2 ML VIAL IVP STA (02:28)
--- NOTE | 2022-07-21 02:39 | ED ---
Abdominal Pain HPI - General Source: patient, RN notes reviewed Mode of arrival: ambulatory Limitations: no limitations <Teri Agee - Last Filed: 07/21/22 02:39> <Jolie Mtz - Last Filed: 07/21/22 10:13> - General Chief Complaint: Abdominal Pain Stated Complaint: Kidney Stone Time Seen by Provider: 07/21/22 02:20 - History of Present Illness Initial Comments: 37-year-old male with no significant past medical history presents to the emergency department with a chief complaint of left-sided flank pain. Patient is also complaining of accompanying symptoms of nausea, vomiting, hematuria. Patient reports that this all started at approximately 2 PM on 07/20/2022. He has not taken anything for his symptoms. He reports that he has history kidney stones. Last bowel movement was earlier today normal for him. Patient denies any fever, fatigue, chest pain, shortness of breath, abdominal pain, melena, hematochezia (Teri Agee) - Related Data Home Medications Medication Instructions Recorded Confirmed Losartan Potassium [Cozaar] 100 mg PO HS 06/18/19 09/28/20 Mesalamine [Lialda] 4.8 gm PO HS 06/18/19 09/28/20 DULoxetine HCL [Cymbalta] 60 mg PO HS 09/28/20 09/28/20 Hydrocodone/Acetaminophen [[place] 1 tab PO Q6HR PRN 09/28/20 09/28/20 5-325] Pramipexole [Mirapex] 0.125 mg PO HS 09/28/20 09/28/20 Previous Rx's Medication Instructions Recorded HYDROcodone/APAP 10-325MG [[place] 1 tab PO Q6HR PRN 3 Days #12 tab 07/21/22 10-325] Allergies Allergy/AdvReac Type Severity Reaction Status Date / Time No Known Allergies Allergy Verified 07/21/22 02:12 Review of Systems ROS Other: All systems not noted in ROS Statement are negative. <Teri Agee - Last Filed: 07/21/22 02:39> ROS Other: All systems not noted in ROS Statement are negative. <Jolie Mtz - Last Filed: 07/21/22 10:13> ROS Statement: Those systems with pertinent positive or pertinent negative responses have been documented in the HPI. Past Medical History Past Medical History: GERD/Reflux, Hypertension, Sleep Apnea/CPAP/BIPAP Additional Past Medical History / Comment(s): DOES NOT USE CPAP. CHRONIC LOWER BACK PAIN, WITH SCIATIC NERVE PAIN. colitis, DDD, Left eye injury, kidney stones History of Any Multi-Drug Resistant Organisms: None Reported Past Surgical History: Orthopedic Surgery Additional Past Surgical History / Comment(s): neck fusion, lower back surgery, wrist surgery-cyst removal. right shoulder cyst removal, left arm sharpnel removal.kidney surgery Past Anesthesia/Blood Transfusion Reactions: No Reported Reaction Additional Past Anesthesia/Blood Transfusion Reaction / Comment(s): HAS NEVER HAD ANESTHESIA Past Psychological History: No Psychological Hx Reported Smoking Status: Never smoker Past Alcohol Use History: None Reported Past Drug Use History: None Reported - Past Family History Mother Family Medical History: No Reported History <Teri Agee - Last Filed: 07/21/22 02:39> General Exam Limitations: no limitations <Teri Agee - Last Filed: 07/21/22 02:39> - General Exam Comments Initial Comments: General: Alert, in no acute distress Head: atraumatic normocephalic. Eyes PERRL, EOMI intact, mucous membranes moist Respiratory: Lungs clear to auscultation bilaterally Cardiovascular: Heart rate regular rate and rhythm Abdominal: Soft without guarding or rebound Extremities: Normal inspection with full range of motion and normal capillary refill Neuroogic: alert and oriented 3, CN II-XII intact, able to ambulate with steady gait Skin: warm dry and intact with normal color (Teri Agee) Course Vital Signs 07/21/22 07/21/22 02:12 08:38 Temperature 98 F Pulse Rate 91 68 Respiratory 18 18 Rate Blood Pressure 148/102 135/87 O2 Sat by Pulse 98 96 Oximetry Medical Decision Making - Lab Data Result diagrams: 07/21/22 02:46 07/21/22 02:46 <Jolie Mtz - Last Filed: 07/21/22 10:13> - Medical Decision Making Patient signed out to me from [employer]. Reports the left flank pain. Laboratory studies within normal limits. CT demonstrates asymmetric fullness to the left renal collecting system with mild hydronephrosis. No ureteral stone. Possible recently passed stone. Patient is continuing to ask for pain medications for which she is given another dose. The differential and treatment options are discussed the patient. Patient will be discharged home with a short prescription for pain medications. Instructed follow up with his primary care doctor return for any new or worsening symptoms. Patient agreeable to the plan and was discharged home stable condition (ArielgeorginaJolie Charlie) - Lab Data Lab Results 07/21/22 07/21/22 07/21/22 Range/Units 02:46 02:46 02:46 WBC 8.8 (3.8-10.6) k/uL RBC 4.91 (4.30-5.90) m/uL Hgb 15.0 (13.0-17.5) gm/dL Hct 43.8 (39.0-53.0) % MCV 89.1 (80.0-100.0) fL MCH 30.5 (25.0-35.0) pg MCHC 34.3 (31.0-37.0) g/dL RDW 13.0 (11.5-15.5) % Plt Count 217 (150-450) k/uL MPV 7.2 Neutrophils % 60 % Lymphocytes % 32 % Monocytes % 5 % Eosinophils % 1 % Basophils % 0 % Neutrophils # 5.3 (1.3-7.7) k/uL Lymphocytes # 2.9 (1.0-4.8) k/uL Monocytes # 0.4 (0-1.0) k/uL Eosinophils # 0.1 (0-0.7) k/uL Basophils # 0.0 (0-0.2) k/uL Sodium 135 L (137-145) mmol/L Potassium 4.1 (3.5-5.1) mmol/L Chloride 97 L (98-107) mmol/L Carbon Dioxide 24 (22-30) mmol/L Anion Gap 14 mmol/L BUN 17 (9-20) mg/dL Creatinine 0.97 (0.66-1.25) mg/dL Est GFR (CKD-EPI)AfAm >90 (>60 ml/min/1.73 sqM) Est GFR (CKD-EPI)NonAf >90 (>60 ml/min/1.73 sqM) Glucose 225 H (74-99) mg/dL Calcium 9.2 (8.4-10.2) mg/dL Total Bilirubin 0.5 (0.2-1.3) mg/dL AST 31 (17-59) U/L ALT 33 (4-49) U/L Alkaline Phosphatase 77 (38-126) U/L Total Protein 7.5 (6.3-8.2) g/dL Albumin 4.4 (3.5-5.0) g/dL Urine Color Light Yellow Urine Appearance Clear (Clear) Urine pH 5.0 (5.0-8.0) Ur Specific [place] 1.010 (1.001-1.035) Urine Protein Negative (Negative) Urine Glucose (UA) 3+ H (Negative) Urine Ketones Negative (Negative) Urine Blood Small H (Negative) Urine Nitrite Negative (Negative) Urine Bilirubin Negative (Negative) Urine Urobilinogen <2.0 (<2.0) mg/dL Ur Leukocyte Esterase Negative (Negative) Urine RBC 1 (0-5) /hpf Urine WBC 1 (0-5) /hpf Ur Squamous Epith Cells <1 (0-4) /hpf Urine Mucus Rare H (None) /hpf Disposition <Teri Agee - Last Filed: 07/21/22 02:39> Is patient prescribed a controlled substance at d/c from ED?: Yes When asked, does pt state using other controlled substances?: No If prescribed controlled substance>3 days was MAPS reviewed?: Prescribed <3 Days Time of Disposition: 07:32 <Jolie Mtz - Last Filed: 07/21/22 10:13> Clinical Impression: Hydronephrosis, left, Left flank pain Disposition: HOME SELF-CARE Condition: Stable Instructions (If sedation given, give patient instructions): Kidney Stones (ED) Additional Instructions: It looks like you recently passed a kidney stone. You may have some pain after the stone passes. Please take the pain medications as directed. Follow up with the urologist in regards to your symptoms and return for any intractable pain, fever, inability to urinate, etc Prescriptions: HYDROcodone/APAP 10-325MG [[place] 10-325] 1 tab PO Q6HR PRN 3 Days #12 tab PRN Reason: Pain Referrals: Robyn Mcfadden PAC [Family Provider] - 1-2 days Thierry Guardado MD [STAFF PHYSICIAN] - 1-2 days
[2022-07-21 03:42] LABS: Basophils % (A) 0 %; Eosinophils # (A) 0.1 k/uL (0-0.7); Eosinophils % (A) 1 %; HCT 43.8 % (39.0-53.0); Lymphocytes # (A) 2.9 k/uL (1.0-4.8); Lymphocytes % (A) 32 %; MCH 30.5 pg (25.0-35.0); MCHC 34.3 g/dL (31.0-37.0); MCV 89.1 fL (80.0-100.0); Mean Platelet Volume 7.2; Monocytes # (A) 0.4 k/uL (0-1.0); Monocytes % (A) 5 %; Neutrophils # (A) 5.3 k/uL (1.3-7.7); Neutrophils % (A) 60 %; Platelet Count 217 k/uL (150-450); RBC 4.91 m/uL (4.30-5.90); WBC 8.8 k/uL (3.8-10.6)
[2022-07-21 03:50] LABS: Appearance,Urine Clear (Clear); Bilirubin,Urine Negative (Negative); Blood,Urine Small (Negative); Color,Urine Light Yellow; Glucose,Urine (UA) 3+ (Negative); Ketones,Urine Negative (Negative); Leukocyte Esterase,Urine Negative (Negative); Mucus,Urine Rare /hpf; Nitrite,Urine Negative (Negative); Protein,Urine Negative (Negative); RBC,Urine 1 /hpf (0-5); Squamous Epithelial Cell,Urine <1 /hpf (0-4); Urobilinogen,Urine <2.0 mg/dL (<2.0); WBC,Urine 1 /hpf (0-5)
[2022-07-21 04:01] LABS: ALT 33 U/L (4-49); AST 31 U/L (17-59); African American GFR (CKD) >90 (>60 ml/min/1.73 sqM); Albumin 4.4 g/dL (3.5-5.0); Alkaline Phosphatase 77 U/L (38-126); Anion Gap 14 mmol/L; Blood Urea Nitrogen 17 mg/dL (9-20); Calcium 9.2 mg/dL (8.4-10.2); Carbon Dioxide 24 mmol/L (22-30); Chloride 97 mmol/L (98-107); Glucose 225 mg/dL (74-99); Non-African American GFR(CKD) >90 (>60 ml/min/1.73 sqM); Potassium 4.1 mmol/L (3.5-5.1); Sodium 135 mmol/L (137-145); Total Bilirubin 0.5 mg/dL (0.2-1.3); Total Protein 7.5 g/dL (6.3-8.2)
[2022-07-21] MEDS ORDERED: MORPHINE SULFATE 4 MG/ML SYRINGE IVP STA ×2 (04:26→07:27)
--- NOTE | 2022-07-21 07:11 | CT ---
EXAMINATION TYPE: CT abdomen pelvis wo con DATE OF EXAM: 07/21/2022 COMPARISON: 06/18/2019 HISTORY: 37-year-old male left flank pain , rule out nephrolithiasis CT DLP: 1131.4 mGycm. Automated exposure control for dose reduction was used. TECHNIQUE: Contiguous axial scanning of the abdomen and pelvis without IV contrast. Coronal and sagit beth reconstructions performed. FINDINGS: Heart normal size without pericardial effusion. Lung bases clear without pleural effusion. Liver shows diminished attenuation. There is a 1.9 cm gallstone. No abnormal gallbladder distention. Adrenal glands, spleen, and pancreas within normal limits. On the right, there is a punctate 2 mm nonobstructive right renal calculus. On the left, punctate 1 mm nonobstructive calculus. However, in addition, there is mild asymmetric fu llness of the left renal collecting system and left ureter. No ureteral calculus is identified. No dilated small bowel, free fluid, or free air. No mesenteric or retroperitoneal lymphadenopathy. Normal appendix. Mild stool burden. No pericolonic inflammatory change. Mild circumferential bladder wall thickening. Prostate gland normal size at 3.9 cm wide. No abnormal fluid collection in the pelvis or pelvic lymphadenopathy. Bones: Superior endplate Schmorl's node L1 vertebral body is unchanged. Moderate to advanced degenera tive disc disease L5-S1 progress from 2020. Disc osteophyte complex here contributes to moderate spin al canal stenosis. Along with hypertrophic facet arthropathy, there may be severe bilateral neurofora nicole stenoses especially on the left. IMPRESSION: 1. A couple punctate nonobstructive renal calculi on both sides. 2. There is asymmetric fullness of the left renal collecting system/mild hydronephrosis. However, no ureteral calculus is seen. Findings may reflect a recently passed stone. 3. A 1.9 cm gallstone. 4. Mild circumferential bladder wall thickening may be chronic for the patient. Correlate to exclude cystitis. 5. Moderate to advanced spondylitic change at L5-S1.
[2022-07-21 08:43] VITALS: BP 135/87; PULSE 68
== END 2022-07-21 08:42 | disposition home or self-care (01) ==
LOC: EC 02:10
DX: K80.20 Calculus of gallbladder without cholecystitis without obstruction (principal); N13.2 Hydronephrosis with renal and ureteral calculous obstruction; I10 Essential (primary) hypertension; G47.30 Sleep apnea, unspecified; Z79.899 Other long term (current) drug therapy
CPT/HCPCS: 36415; 80053; 85025; 81001; 74176; 99284; 96374; 96376; 96375 ×2; 96361; J2270; J2405; J1885

== ENCOUNTER → 2022-08-08 | Outpatient (CLI) | payer BC ==
--- NOTE | 2022-08-10 19:06 | MR ---
EXAMINATION TYPE: MR lumbar spine wo con DATE OF EXAM: 08/08/2022 8:32 AM COMPARISON: 05/02/2014, 01/07/2017 CLINICAL INDICATION: Male, 37 years old with history of M51.36; PHH, Hx of laminectomy, low back pain radiating into rt buttocks and rt lower extremity TECHNIQUE: Multi planar, multi sequence imaging was performed utilizing: T1-weighted, T2-weighted, a nd turbo inversion recovery imaging of the lumbar spine. IV Contrast: cc . None. FINDINGS: Alignment: The lumbar vertebral bodies have preserved heights and alignment. Cord: The conus medullaris and the distal spinal cord appear unremarkable with regards to their signa l intensity and morphology. Bones/Discs: Multilevel degeneration changes with osteophyte formation. Disc space narrowing worse at L5-S1. Facet joint arthropathy throughout the spine. Schmorl's node at the superior endplate of L1 n oted. Mild wedging of the L1 vertebrae. No abnormal bony edema in the L1 vertebrae. T12-L1: No evidence of significant spinal canal stenosis or neural foraminal stenosis. L1-L2: No evidence of significant spinal canal stenosis or neural foraminal stenosis. L2-L3: No evidence of significant spinal canal stenosis or neural foraminal stenosis. L3-L4: Disc bulge and facet joint arthropathy result in moderate spinal canal and mild bilateral neur al foraminal stenosis. L4-L5: Eccentric left disc bulge and facet joint arthropathy result in mild spinal canal and mild to moderate bilateral neural foraminal stenosis. L5-S1: Central disc protrusion without significant spinal canal stenosis. There is moderate to severe bilateral neural foraminal stenosis left greater than right. T11-T12 foraminal/left central disc protrusion series 601 image 33 appears to closely approximate the exiting left nerve. The neural foramen appear patent. Spinal canal is patent. Other findings: None. IMPRESSION: Overall findings are similar spine compared to 2017. 1. Disc degeneration changes worse in the lower lumbar spine. At L5-S1 with marked severe bilateral neural foraminal stenosis, left greater than right. Central disc protrusion at this level without sig nificant spinal canal stenosis. 2. T11-T12 left foraminal/left central protrusion which may closely approximates the left exiting ne rve.
== END | disposition home or self-care (01) ==
LOC: RADMRIMAIN 07:03
PROVIDERS: ATTEND Family Medicine
DX: M51.36 Other intervertebral disc degeneration, lumbar region (principal); M48.061 Spinal stenosis, lumbar region without neurogenic claudication; M51.24 Other intervertebral disc displacement, thoracic region; M51.26 Other intervertebral disc displacement, lumbar region; M54.31 Sciatica, right side
CPT/HCPCS: 72148

== ENCOUNTER 2023-03-23 05:14 | Emergency (ER) | payer BC ==
[2023-03-23 05:39] VITALS: TEMP 98.1
[2023-03-23] MEDS ORDERED: HYDROmorphone 1 MG/ML 1 ML SYRINGE IM STA (06:14)
[2023-03-23] MEDS ORDERED: KETOROLAC 15 MG/ML 1 ML VIAL IM STA (06:14)
[2023-03-23] MEDS ORDERED: ORPHENADRINE 30 MG/ML 2 ML VIAL IM STA (06:14)
[2023-03-23] MEDS ORDERED: methylPREDNISolone SOD SUCCI 125 MG/2 ML VIAL IM ONE (06:15)
[2023-03-23] MEDS ORDERED: ACET/COD 300 MG/30 MG STARTER PACK 6 TAB BTL PO STA (06:24)
--- NOTE | 2023-03-23 06:24 | ED ---
General Adult HPI - General Chief complaint: Neck Pain/Injury Stated complaint: Back Pain Time Seen by Provider: 03/23/23 06:04 Source: patient, RN notes reviewed Mode of arrival: ambulatory Limitations: no limitations - History of Present Illness Initial comments: 37-year-old male presents emergency Department chief complaint low back pain. Patient states she's had back pain for several years she's had prior surgery by Dr. Pavon. He had an MRI recently in which they are referring him to orthopedic surgeon. Patient states she [facility]. He denies any bowel, bladder incontinence retention also last seizures. States pain radiates down his right leg aching has some paresthesias associated with the not currently now. Denies any abdominal pain no decreased strength or lower extremity. - Related Data Home Medications Medication Instructions Recorded Confirmed Losartan Potassium [Cozaar] 100 mg PO HS 06/18/19 09/28/20 Mesalamine [Lialda] 4.8 gm PO HS 06/18/19 09/28/20 DULoxetine HCL [Cymbalta] 60 mg PO HS 09/28/20 09/28/20 Hydrocodone/Acetaminophen [[place] 1 tab PO Q6HR PRN 09/28/20 09/28/20 5-325] Pramipexole [Mirapex] 0.125 mg PO HS 09/28/20 09/28/20 Previous Rx's Medication Instructions Recorded HYDROcodone/APAP 10-325MG [[place] 1 tab PO Q6HR PRN 3 Days #12 tab 07/21/22 10-325] Cyclobenzaprine [Flexeril] 10 mg PO TID PRN #15 tab 03/23/23 Ibuprofen [Motrin] 600 mg PO Q8HR PRN #20 tab 03/23/23 predniSONE 50 mg PO DAILY #5 tab 03/23/23 Allergies Allergy/AdvReac Type Severity Reaction Status Date / Time No Known Allergies Allergy Verified 03/23/23 05:16 Review of Systems ROS Statement: Those systems with pertinent positive or pertinent negative responses have been documented in the HPI. ROS Other: All systems not noted in ROS Statement are negative. Past Medical History Past Medical History: GERD/Reflux, Hypertension, Sleep Apnea/CPAP/BIPAP Additional Past Medical History / Comment(s): DOES NOT USE CPAP. CHRONIC LOWER BACK PAIN, WITH SCIATIC NERVE PAIN. colitis, DDD, Left eye injury, kidney stones History of Any Multi-Drug Resistant Organisms: None Reported Past Surgical History: Orthopedic Surgery Additional Past Surgical History / Comment(s): neck fusion, lower back surgery, wrist surgery-cyst removal. right shoulder cyst removal, left arm sharpnel removal.kidney surgery Past Anesthesia/Blood Transfusion Reactions: No Reported Reaction Additional Past Anesthesia/Blood Transfusion Reaction / Comment(s): HAS NEVER HAD ANESTHESIA Past Psychological History: No Psychological Hx Reported Smoking Status: Current every day smoker Past Alcohol Use History: None Reported Past Drug Use History: None Reported - Past Family History Mother Family Medical History: No Reported History General Exam Limitations: no limitations General appearance: alert, in no apparent distress Eye exam: Present: normal appearance, PERRL, EOMI. Absent: scleral icterus, conjunctival injection, periorbital swelling Cardiovascular Exam: Present: regular rate, normal rhythm, normal heart sounds. Absent: systolic murmur, diastolic murmur, rubs, gallop, clicks GI/Abdominal exam: Present: soft, normal bowel sounds. Absent: distended, tenderness, guarding, rebound, rigid Extremities exam: Present: other (Lower extremity strength equal bilaterally neurovascular intact) Neurological exam: Present: alert, oriented X3, CN II-XII intact, reflexes nor mal. Absent: motor sensory deficit Skin exam: Present: warm, dry, intact, normal color. Absent: rash Course Vital Signs 03/23/23 05:15 Temperature 98.1 F Pulse Rate 110 H Respiratory 20 Rate Blood Pressure 156/98 O2 Sat by Pulse 98 Oximetry Medical Decision Making - Medical Decision Making Was pt. sent in by a medical professional or institution (, PA, [facility], urgent care, hospital, or long term...) When possible be specific @ -No Did you speak to anyone other than the patient for history (EMS, parent, family, police, friend...)? What history was obtained from this source @ -No Did you review nursing and triage notes (agree or disagree)? Why? @ -I reviewed and agree with nursing and triage notes Were old charts reviewed (outside hosp., previous admission, EMS record, old EKG, old radiological studies, urgent care reports/EKG's, long term records)? Report findings @ -Reviewed recent MRI Differential Diagnosis (chest pain, altered mental status, abdominal pain women, abdominal pain men, vaginal bleeding, weakness, fever, dyspnea, syncope, headache, dizziness, GI bleed, back pain, seizure, CVA, palpatations, mental health, musculoskeletal)? @ -nDifferential Back Pain: Strain, zoster, cauda equina syndrome, epidural abscess, vertebral os teomyelitis, discitis, fracture, subluxation, disc herniation, DJD, spinal stenosis, dissection, AAA, pancreatitis, peptic ulcer disease, pyelonephritis, kidney stone, this is not meant to be an all-inclusive list.e EKG interpreted by me (3pts min.). @ -None X-rays interpreted by me (1pt min.). @ -None done CT interpreted by me (1pt min.). @ -None done U/S interpreted by me (1pt. min.). @ -None done What testing was considered but not performed or refused? (CT, X-rays, U/S, labs)? Why? @ -Consider CT, x-ray patient had recent MRI though. What meds were considered but not given or refused? Why? @ -None Did you discuss the management of the patient with other professionals (professionals i.e. , PA, [facility], lab, RT, psych nurse, transition social worker, lead cook, teacher, development officer, case preparer and liner)? Give summary @ -No Was smoking cessation discussed for >3mins.? @ -No Was critical care preformed (if so, how long)? @ -No Were there social determinants of health that impacted care today? How? (Homelessness, low income, unemployed, alcoholism, drug addiction, transportation, low edu. Level, literacy, decrease access to med. care, [facility] [facility], rehab)? @ -No Was there de-escalation of care discussed even if they declined (Discuss DNR or withdrawal of care, Hospice)? DNR status @ -No What co-morbidities impacted this encounter? (DM, HTN, Smoking, COPD, CAD, Cancer, CVA, ARF, Chemo, Hep., AIDS, mental health diagnosis, sleep apnea, morbid obesity)? @ -Chronic back pain Was patient admitted / discharged? Hospital course, mention meds given and route, prescriptions, significant lab abnormalities, going to OR and other pertinent info. @ -Discharge patient has presented with low back pain exacerbation with no red flag symptoms. Patient will be provided steroids, analgesics. Patient will follow-up with pain management as scheduled appointment return parameters were discussed. Undiagnosed new problem with uncertain prognosis? @ -No Drug Therapy requiring intensive monitoring for toxicity (Heparin, Nitro, Insulin, Cardizem)? @ -No Were any procedures done? @ -No Diagnosis/symptom? @ -Low back pain Acute, or Chronic, or Acute on Chronic? @ -Acute on chronic Uncomplicated (without systemic symptoms) or Complicated (systemic symptoms)? @ -Uncomplicated Side effects of treatment? @ -No Exacerbation, Progression, or Severe Exacerbation? @ -No Poses a threat to life or bodily function? How? (Chest pain, [place], [place], pneumonia, PE, COPD, DKA, ARF, appy, cholecystitis, CVA, Diverticulitis, Homicidal, Suicidal, threat to staff... and all critical care pts) @ -No Disposition Clinical Impression: Lumbar degenerative disc disease, Acute exacerbation of chronic low back pain Disposition: HOME SELF-CARE Condition: Stable Instructions (If sedation given, give patient instructions): Acute Low Back Pain (ED) Additional Instructions: Please return to the Emergency Department if symptoms worsen or any other concerns. Prescriptions: Cyclobenzaprine [Flexeril] 10 mg PO TID PRN #15 tab PRN Reason: Muscle Spasm Ibuprofen [Motrin] 600 mg PO Q8HR PRN #20 tab PRN Reason: Pain predniSONE 50 mg PO DAILY #5 tab Is patient prescribed a controlled substance at d/c from ED?: No Referrals: Ariel Castellon DO [Primary Care Provider] - 1-2 days Muna Eden DO [Doctor of Osteopathic Medicine] - 1-2 days Time of Disposition: 06:23
[2023-03-23 06:27] VITALS: RESP 19
[2023-03-23 06:52] VITALS: BP 138/108; PULSE 85
== END 2023-03-23 07:05 | disposition home or self-care (01) ==
LOC: EC 05:14
DX: M51.36 Other intervertebral disc degeneration, lumbar region (principal); K21.9 Gastro-esophageal reflux disease without esophagitis; I10 Essential (primary) hypertension; G47.30 Sleep apnea, unspecified; F17.200 Nicotine dependence, unspecified, uncomplicated; Z79.899 Other long term (current) drug therapy
CPT/HCPCS: 99283; 96372 ×4; J2360; J2930; J1170; J1885

== ENCOUNTER → 2023-04-02 | Outpatient (CLI) | payer BC ==
[2023-04-02 09:32] VITALS: BP 147/103; PULSE 84; RESP 16; TEMP 98
--- NOTE | 2023-04-02 14:22 | P.PAINPG ---
PQRS Measure Charge Sheet Comment: HISTORY OF PRESENT ILLNESS: A 37 yr old male w at side as a referral from Dr Edne presents today w severe and chronic LBP x 5 yrs secondary to L5-S1 post laminectomy syndrome for evaluation. Pt states pain level is provoked at 8 /10 in intensity, constant, localized in the lumbar spine, predominantly axial, burning in character w occasional shooting pain towards the R groin, thigh and RLE. Pain is provoked by inactivity and laying supine. Pain is alleviated by PT yrs ago which provoked pain, alternating heat & ice, medications (Flexeril), topicals, repositining and rest. Oswestry axial pain score at 36. PMH: OA, GERD, HTN, NIDDM II, [place] PSH: L5-S1 Laminectomy/ Discectomy/ Decompression (2014), Cervical Fusion, L Wrist Cystectomy, R Shoulder Cystectomy, LUE Shrapnel Removal, Nephrolithiasis, L Eye Trauma SH: Daily tobacco use, No ETOH abuse, No illicit drug use FH: Mo- No Reported History All: See list Meds: See list REVIEW OF ORGAN SYSTEMS: CONSTITUTIONAL: No fevers or chills. No recent weight loss. NEUROLOGICAL: + numbness and tingling along the distal extremities. No seizure disorders or headaches. MUSCULOSKELETAL: + pain PSYCHIATRIC: Denies current depression or suicidal thoughts. Physical Examinations : Constitutional : Cooperative , not in acute distress . Neurologic : Cranial nerve II to XII intact. No focal neurological deficits. Psychiatric : alert & oriented x 3. Matching mood & appropriate affect. Judgment & insight intact. Musculoskeletal : Cervical Spine Motor strength in the deltoid and biceps: Normal right side. Normal Left side Motor strength biceps and the wrist extensors: Normal right side . Normal left side Motor strength in the triceps muscle: Normal right side. Normal left side Deep tendon reflexes: Normal at the biceps. Normal at Brachioradialis. Normal at triceps Vertebral body tenderness to deep palpation over Cervical facet loading test: positive bilaterally Spurling test: positive bilaterally Neck distraction test: positive bilaterally Benigno sign: positive bilaterally Lumbar spine +Incisional scar intact Motor strength lower extremities ,thigh and legs 5/5 Right side , 5/5 Left side Deep tendon reflexes : Normal Knee Jerk. Normal Ankle Jerk Vertebral body tenderness over Parsons Test positive BL L5-S1 Lumbar facet Loading Test: positive Right / positive Left Range of motion of the lumbar spine Flexion 30 degrees, extension 10 degrees Straight Leg Raise test: Left/ Right positive at <30 degrees Kristy test: positive right / positive left. Severe tenderness over the Sacroiliac joint on the Right / Left sides Gaenslen test: positive bilaterally Seated flexion test: positive bilaterally. Sacral spine : Severe tenderness over the Sacroiliac j oint: right side / left side Range of motion: Flexion of the lumbar spine <60 degrees Range of motion: Extension of the lumbar spine <20 degrees Gaenslen's Test positive Kristy test: positive right side / left side Thigh Thrust Test Sacral Thrust Test Imaging: MRI noncontrast of the lumbar spine from 08/08/22 reviewed Assessment/ Plan : Post laminectomy syndrome Recommendation o f BL TFESI L5-S1 #1. May need a series of injections for optimal pain relief. Risks, benefits of procedure discussed and patient verbalized understanding. Admits to anti- coagulant use or medical history of diabetes. Protocol for discontinuation/ continuation of medications tila procedure discussed. Recommendation of TENS unit for home use M51.36 Recommendation of [place] 7.5/325mg #15 NR Use, side effects, adverse reactions, safe storage discussed. All questions answered. I have spent greater than 30 minutes on patient care today. Dr Myrick was available by phone for the evaluation of this patient. The time was used to review the medical records including relevant urine studies and Prescription history (MAPs), review of the available imaging, evaluation and examination of the patient, coordination of care with the medical staff and if applicable referring physicians, as well as creation of the medical record PQRS Narrative: Smoking Status Former smoker Home Medications: Ambulatory Orders Losartan Potassium [Cozaar] 100 mg PO HS 06/18/19 Mesalamine [Lialda] 4.8 gm PO HS 06/18/19 DULoxetine HCL [Cymbalta] 60 mg PO HS 09/28/20 Pramipexole [Mirapex] 0.125 mg PO HS 09/28/20 Cyclobenzaprine [Flexeril] 10 mg PO TID PRN #15 tab 03/23/23 Ibuprofen [Motrin] 600 mg PO Q8HR PRN #20 tab 03/23/23 predniSONE 50 mg PO DAILY #5 tab 03/23/23 HYDROcodone/APAP 10-325MG [[place] 10-325] 1 tab PO Q4HR PRN 3 Days #15 tab 04/02/23 Controlled Substance Measures - Controlled Substance Measures Is patient prescribed a controlled substance at discharge?: Yes When asked, does pt state using other controlled substances?: No If prescribed controlled substance>3 days was MAPS reviewed?: Prescribed <3 Days If Rx opioid, was Start Talking consent form obtained?: Yes Was information provided regarding opioid addiction?: Yes
== END ==
LOC: PNWHC3 08:23
PROVIDERS: ATTEND Specialist
DX: M51.86 Other intervertebral disc disorders, lumbar region (principal); M96.1 Postlaminectomy syndrome, not elsewhere classified; M19.90 Unspecified osteoarthritis, unspecified site; K21.9 Gastro-esophageal reflux disease without esophagitis; I10 Essential (primary) hypertension; E11.9 Type 2 diabetes mellitus without complications; G47.33 Obstructive sleep apnea (adult) (pediatric); Z87.891 Personal history of nicotine dependence; Z98.1 Arthrodesis status; Z79.899 Other long term (current) drug therapy
CPT/HCPCS: 99211

== ENCOUNTER 2023-04-09 09:03 | Day surgery (SDC) | payer BC ==
[2023-04-09] MEDS ORDERED: DEXTROSE 50% SYRINGE 50 ML IVP PRN ×2 (09:52)
[2023-04-09] MEDS: INSULIN ASPART (NovoLOG) 100 UNIT/ML VIAL SQ ONE (09:58)
[2023-04-09 10:00] VITALS: TEMP 97.5
[2023-04-09 10:01] LABS: Glucose,Whole Blood 285 mg/dL (70-110)
[2023-04-09] MEDS ORDERED: IOPAMIDOL M200 10 ML VIAL ONE (10:29)
[2023-04-09] MEDS ORDERED: methylPREDNISolone ACETATE 40 MG/ML 1 ML VIAL ONE (10:29)
--- NOTE | 2023-04-09 10:41 | P.PCN ---
Date of Procedure: 04/09/23 Procedure(s) Performed: PREOPERATIVE DIAGNOSIS: 1-Lumbar radiculopathy . 2-lumbar degenerative disc disease. 3-previous lumbar laminectomy surgery POSTOPERATIVE DIAGNOSIS: 1-lumbar radiculopathy. 2-lumbar degenerative disc disease. 3-previous lumbar laminectomy surgery. PROCEDURE 1. Transforaminal epidural steroid injection under fluoroscopic guidance at bilateral L5-S1 level. (Fluoroscopy images stored on file in the radiology Department ) 2. Lumbar epidurogram . ANESTHESIA: Local with 1% lidocaine 3 ml. EBL: Minimal PROCEDURE INDICATION: The patient with low back pain and radiculopathy symptoms unresponsive to conservative treatment. PROCEDURE DESCRIPTION / TECHNIQUE: The patient was seen and identified in the preoperative area. Risks, benefits, complications, and alternatives were discussed with the patient. The patient agreed to proceed with the procedure and signed the consent. IV was started, and vital signs were stable. Patient was taken to the OR and time out was completed. The patient was placed in the prone position on procedure table and a pillow was placed under the abdomen to reduce lumbar lordosis. The lumbosacral area was prepped and draped in the usual sterile fashion. Critical pause was taken. Vital signs were closely monitored during the procedure. Using oblique fluoroscopy, the chin of the ``Deion dog at Right L5-S1 level was identified, and the skin and deeper tissues just below was localized with 1% lidocaine. Subsequently, a 22-gauge 3.5-inch spinal needle was advanced under a tunneled view fluoroscopic guidance just underneath the chin of the `[place]gangy dog at the right L5-S1 Under lateral fluoroscopy, the needle was then advanced to the posterior border of the interforaminal space. After negative aspiration of CSF and blood and with no paresthesias, 1 mL Isovue 200 contrast dye was injected excellent epidurogram and outlining of the nerve root Subsequently, 3 mL of block solution containing 20 mg Depo-Medrol and 2 mL of 0.9% normal saline PF was injected. Needle was removed and the same procedure was repeated at the left L5-S1. At the end of the procedure, skin was cleansed, and bandages were applied. COMPLICATIONS:none DISPOSITION / PLANS: The patient was placed in a supine position and transferred to the recovery area in a stable condition for observation. There was no evidence of lower extremity motor or sensory deficit after the procedure. Patient was discharged from the recovery room after meeting discharge criteria. Home discharge instructions were given to the patient by the staff. The patient was reexamined prior to discharge.
[2023-04-09 10:47] LABS: Glucose,Whole Blood 264 mg/dL (70-110)
[2023-04-09 11:01] VITALS: BP 124/73; PULSE 107; RESP 14
--- NOTE | 2023-04-09 11:42 | FL ---
EXAMINATION TYPE: FL guided pain mgmt statistic Intraoperative/procedural fluoroscopic services were provided. Total fluoroscopy time is 5. seconds with a total of 2 submitted images to PACS. Please see the operative/procedural note for further details. DAP: [id number] mGym2
== END 2023-04-09 11:02 | disposition home or self-care (01) ==
LOC: ORPAIN 09:03
PROVIDERS: ATTEND Specialist
DX: M51.16 Intervertebral disc disorders with radiculopathy, lumbar region (principal); M96.1 Postlaminectomy syndrome, not elsewhere classified; E11.9 Type 2 diabetes mellitus without complications; Z79.4 Long term (current) use of insulin
CPT/HCPCS: 64483; J1030; Q9966

== ENCOUNTER → 2023-05-11 | Outpatient (CLI) | payer BC ==
[2023-05-11 08:49] VITALS: BP 113/78; PULSE 110; RESP 95; TEMP 97.1
--- NOTE | 2023-05-11 14:19 | P.PAINPG ---
PQRS Measure Charge Sheet Comment: HISTORY OF PRESENT ILLNESS: A 37 yr old male presents today w severe and chronic LBP x 5 yrs secondary to L5-S1 post laminectomy syndrome for evaluation s/p BL TFESI L5-S1 #1. Pt states he experienced 100% pain relief x 1 wks s/p procedure. Pt states pain level is provoked at 7 /10 in intensity, constant, localized in the lumbar spine, predominantly axial, sharp in character w occasional shooting pain towards the R groin, thigh and BLEs. Pain is provoked by inactivity and laying supine. Pain is alleviated by PT yrs ago which provoked pain, alternating heat & ice, medications, topicals, repositioning and rest. Oswestry axial pain score at 35. Interventional procedures include BL TFESI L5-S1 x1 Medications include Flexeril REVIEW OF ORGAN SYSTEMS: CONSTITUTIONAL: No fevers or chills. No recent weight loss. NEUROLOGICAL: + numbness and tingling along the distal extremities. No seizure disorders or headaches. MUSCULOSKELETAL: + pain PSYCHIATRIC: Denies current depression or suicidal thoughts. Physical Examinations : Constitutional : Cooperative , not in acute distress . Neurologic : Cranial nerve II to XII intact. No focal neurological deficits. Psychiatric : alert & oriented x 3. Matching mood & appropriate affect. Judgment & insight intact. Musculoskeletal : Cervical Spine Motor strength in the deltoid and biceps: Normal right side. Normal Left side Motor strength biceps and the wrist extensors: Normal right side . Normal left side Motor strength in the triceps muscle: Normal right side. Normal left side Deep tendon reflexes: Normal at the biceps. Normal at Brachioradialis. Normal at triceps Vertebral body tenderness to deep palpation over Cervical facet loading test: positive b ilaterally Spurling test: positive bilaterally Neck distraction test: positive bilaterally Benigno sign: positive bilaterally Lumbar spine +Incisional scar intact Motor strength lower extremities ,thigh and legs 5/5 Right side , 5/5 Left side Deep tendon reflexes : Normal Knee Jerk. Normal Ankle Jerk Vertebral body tenderness over Parsons Test positive BL L5-S1 Lumbar facet Loading Test: positive Right / positive Left Range of motion of the lumbar spine Flexion 30 degrees, extension 10 degrees Straight Leg Raise test: Left/ Right positive at <30 degrees Kristy test: positive right / positive left. Severe tenderness over the Sacroiliac joint on the Right / Left sides Gaenslen test: positive bilaterally Seated flexion test: positive bilaterally. Sacral spine : Severe tenderness over the Sacroiliac joint: right side / left side Range of motion: Flexion of the lumbar spine <60 degrees Range of motion: Extension of the l umbar spine <20 degrees Gaenslen's Test positive Kristy test: positive right side / left side Thigh Thrust Test Sacral Thrust Test Imaging: MRI noncontrast of the lumbar spine from 08/08/22 reviewed Assessment/ Plan : Post laminectomy syndrome Recommendation o f medication management and referral for SCS Trial G89.1 M54.16. [place] 7.5/325mg #60 w 1 RF Use, side effects, adverse reactions, safe storage discussed. Opiate/ narcotic agreement signed 05/11/23. Behavioral script and referral information to Dr Obregon provided. All questions answered. I have spent greater than 30 minutes on patient care today. Dr Myrick was available by phone for the evaluation of this patient. The time was used to review the medical records including relevant urine studies and Prescription history (MAPs), review of the available imaging, evaluation and examination of the patient, coordination of care with the medical staff and if applicable referring physicians, as well as creation of the medical record PQRS Narrative: Smoking Status Former smoker Hx Alcohol Use (MH) No Home Medications: Ambulatory Orders Losartan Potassium [Cozaar] 100 mg PO HS 06/18/19 Mesalamine [Lialda] 4.8 gm PO HS 06/18/19 DULoxetine HCL [Cymbalta] 60 mg PO HS 09/28/20 Pramipexole [Mirapex] 0.125 mg PO HS 09/28/20 Cyclobenzaprine [Flexeril] 10 mg PO TID PRN #15 tab 03/23/23 Ibuprofen [Motrin] 600 mg PO Q8HR PRN #20 tab 03/23/23 predniSONE 50 mg PO DAILY #5 tab 03/23/23 HYDROcodone/APAP 10-325MG [[place] 10-325] 1 tab PO Q4HR PRN 3 Days #15 tab 04/02/23 diazePAM [Valium] 5 mg PO DAILY PRN 1 Days #2 tab 04/02/23 metFORMIN HCL 500 mg PO 04/09/23 Controlled Substance Measures - Controlled Substance Measures Is patient prescribed a controlled substance at discharge?: Yes When asked, does pt state using other controlled substances?: No If prescribed controlled substance>3 days was MAPS reviewed?: Yes If Rx opioid, was Start Talking consent form obtained?: Yes Was information provided regarding opioid addiction?: Yes
== END ==
LOC: PNWHC3 07:53
PROVIDERS: ATTEND Specialist
DX: G89.4 Chronic pain syndrome (principal); M54.16 Radiculopathy, lumbar region; M96.1 Postlaminectomy syndrome, not elsewhere classified; Z87.891 Personal history of nicotine dependence
CPT/HCPCS: 99211

== ENCOUNTER → 2023-07-02 | Outpatient (CLI) | payer BC ==
--- NOTE | 2023-07-02 09:51 | P.PAINPG ---
Subjective Progress Note Date: 07/02/23 Principal diagnosis: lumbar back pain, and pain radiating to right lower extremity Mr. Peguero is a 37 -year-old pleasant male came to the [facility] pain clinic forpostprocedure evaluation, and follow-up medication refill . Patient has ongoing pain for many years. Patient describes pain is aching, throbbing, constant type of pain. Pain is radiating to right lower extremity sometimes causing numbness and tingling sensation. he tried lumbar epidural straight injection at L5-S1 level not much beneficial. He also tried bilateral transforaminal L5-S1 with minimal pain relief for 5 days. He is in process of getting spinal cord stem later trial evaluation. Patient rated pain levels are 7-8 out of 10 in severity. With the help of medications pain levels are 4-5 out of 10 in severity. Activities making pain worse. Medications, resting, in tervention procedures helping in relieving patient's pain. Patient pain some days better than others. Overall activities decreased secondary to pain. Because of the pain sometimes patient is feeling lack of sleep, interest, and energy. Denied any side effects with the medications. Denied any bowel or bladder problems at this time. Patient is using [ ] for walking support. Patient denies any suicidal or homicidal ideations intent or plan. Patient denies any auditory or visual hallucinations. Patient denied any red flag symptoms related to pain. 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 Sensation grossly intact Lower extremity: Normal strength, and normal range of motion. Lumbar spine: Paravertebral tenderness: positive , healed lower lumbar scar. Lumbar facet load test : positive Sacroiliac joint tenderness: Positive on right side Thigh thrust test: positive on right side SI joint compression test: Positiveon right side - Constitutional Constitutional Comment(s): 13 point review of symptoms negative except as mentioned in the history of present illness. Assessment and Plan Assessment: lumbar postlaminectomy syndrome Right-sided lumbar radiculopathy Lumbar spondylosis without myelopathy Myofascial pain syndrome Chronic opioid dependent Plan: 1 Opioid, and psychological risk tools, and scores were reviewed. Diagnoses, prognosis, and multiple treatment options including but not limited to physical therapy, interventional therapy, adjunct medication therapy, narcotic medication, and surgical options were discussed with the patient. And all questions were answered to the patient's satisfaction. #2 Opioid agreement: Patient was thoroughly discussed regarding the medication side effects, complications associated with narcotic use. Patient recommended do not drive while on narcotic medications, any other sedative medications, and illicit drugs including marijuana. Patient clearly understood. Patient has signed narcotic agreement and was again asked to re-read this document and will be given a copy to take home if requested. This document outlines the policies of the [facility]. It specifically counsels the patient to not misuse, overuse, abuse, divert, or sell medications, and to take them as prescribed by only one healthcare provider and store the medications in a safe and preferably locked location. This document also counsels against driving while using narcotic medications and also against using any alcohol or illicit or recreational drugs in conjunction with opioids. The patient verbalized understanding to staff that lack of compliance with any of the above will likely result in failure to renew narcotic prescriptions, possible discharge from the clinic, and possible legal ramifications thereafter. #3 Patient was counseled on importance of regular exercise. Including manjinder chi, aerobic exercises as tolerated. Which helps for chronic pain, and overall well- being. Patient also counseled regarding importance of weight control rolling chronic pain, and overall other health issues. By altering diet habits, minimizing sugar intake, and processed foods helps in minimizing Inflammation. Also discussed with the patient regarding intermittent fasting. #4 consultation: none #5 investigations: MAPS , urine drug test- sent #6 interventional procedures:discussed with the patient regarding caudal epidural steroid injection as needed in future, and spinal cord stem later trial options #7 medications #1Norco 7./325 by mouth every 12 hours as needed dispense 60 with no refill Medication side effects, complications, long-term consequences discussed with the patient. Patient recommended to contact the pain clinic if noticed any issues with given medications. #8 morphine milligrams equivalents dose ( MME) per day:15. #9 TENS unit's, and percussion massage device #10 disposition scheduled to follow up with pain clinic for medication refill in 4 weeks duration Patient denies any suicidal or homicidal ideations intent or plan. At this time patient denies any auditory or visual hallucinations. Time with Patient: Less than 30 PQRS Measure Charge Sheet Measure #130: Documentation of Current Meds in Medical Chart: Patient's medications documented in chart Measure #226: Tobacco Use: Screen & Cessation Intervention: Pt not a tobacco user Measure #111: Pneumonia Vaccination: Pneumococcal vaccine administered or previously received Measure #47: Advance Care Plan: Advance care planning discussed & documented, pt chose/unable to give Measure #412: Opioid Treatment Agreement: Documented signed opioid trtmnt agreemnt min once during opioid trtmnt Measure #408: Opioid Therapy Follow-up Evaluation: Patient had f/u eval minimum every 3 months during opioid therapy Measure #317: Preventitive Care & Scrn High Bld Press & F/U: Normal blood pressure, f/u not required Measure #128: Body Mass Index (BMI) Screening & Follow-up: BMI documented ABOVE normal parameters - f/u documented Measure #131: Pain Assessment & Follow-up: Pain positive & plan documented Measure #431: Unhealthy Alcohol Use Preventative Care & Scrn: Patient not identified as an unhealthy alcohol user PQRS Narrative: Smoking Status Former smoker Narcotic Agreement Date Signed 05/11/23 Hx Alcohol Use (MH) No Home Medications: Ambulatory Orders Losartan Potassium [Cozaar] 100 mg PO HS 06/18/19 Mesalamine [Lialda] 4.8 gm PO HS 06/18/19 DULoxetine HCL [Cymbalta] 60 mg PO HS 09/28/20 Pramipexole [Mirapex] 0.125 mg PO HS 09/28/20 Cyclobenzaprine [Flexeril] 10 mg PO TID PRN #15 tab 03/23/23 Ibuprofen [Motrin] 600 mg PO Q8HR PRN #20 tab 03/23/23 predniSONE 50 mg PO DAILY #5 tab 03/23/23 diazePAM [Valium] 5 mg PO DAILY PRN 1 Days #2 tab 04/02/23 metFORMIN HCL 500 mg PO 04/09/23 HYDROcodone/APAP 7.5-325MG [[place] 7.5-325] 1 tab PO BID PRN 30 Days #60 tab 05/11/23 HYDROcodone/APAP 7.5-325MG [[place] 7.5-325] 1 tab PO BID PRN 30 Days #60 tab 05/11/23 Controlled Substance Measures - Controlled Substance Measures Is patient prescribed a controlled substance at discharge?: Yes When asked, does pt state using other controlled substances?: Yes If prescribed controlled substance>3 days was MAPS reviewed?: No If Rx opioid, was Start Talking consent form obtained?: Yes If opioid is for acute pain is fill amount 7 days or less?: No Was information provided regarding opioid addiction?: Yes
[2023-07-02 11:38] VITALS: BP 138/94; PULSE 95; RESP 16; TEMP 98.4
== END ==
LOC: PNWHC3 09:29
DX: M96.1 Postlaminectomy syndrome, not elsewhere classified (principal); G89.29 Other chronic pain; M79.18 Myalgia, other site; F11.20 Opioid dependence, uncomplicated; M47.26 Other spondylosis with radiculopathy, lumbar region; M54.50 Low back pain, unspecified; M79.604 Pain in right leg; Z87.891 Personal history of nicotine dependence; Z71.82 Exercise counseling
CPT/HCPCS: 80307; 99211

== ENCOUNTER → 2023-07-30 | Outpatient (CLI) | payer BC ==
[2023-07-30 08:54] VITALS: BP 156/84; PULSE 76; RESP 15; TEMP 97.2
--- NOTE | 2023-07-30 14:46 | P.PAINPG ---
PQRS Measure Charge Sheet Comment: HISTORY OF PRESENT ILLNESS: A 38 yr old male presents today w severe and chronic LBP x 5 yrs secondary to L5-S1 post laminectomy syndrome for evaluation s/p BL TFESI L5-S1 #1. Pt states he experienced 100% pain relief x 1 wks s/p procedure. Pt states pain level is provoked at 7 /10 in intensity, constant, localized in the lumbar spine, predominantly axial, sharp in character w occasional shooting pain towards the R groin, thigh and BLEs. Pain is provoked by inactivity and laying supine. Pain is alleviated by PT yrs ago which provoked pain, alternating heat & ice, medications, topicals, repositioning and rest. Oswestry axial pain score at 35. Interventional procedures include ASHISH L5-S1 x1, BL TFESI L5-S1 x1 Medications include [place] 7.5/325mg #60, Flexeril REVIEW OF ORGAN SYSTEMS: CONSTITUTIONAL: No fevers or chills. No recent weight loss. NEUROLOGICAL: + numbness and tingling along the distal extremities. No seizure disorders or headaches. MUSCULOSKELETAL: + pain PSYCHIATRIC: Denies current depression or suicidal thoughts. Physical Examinations : Constitutional : Cooperative , not in acute distress . Neurologic : Cranial nerve II to XII intact. No focal neurological deficits. Psychiatric : alert & oriented x 3. Matching mood & appropriate affect. Judgment & insight intact. Musculoskeletal : Cervical Spine Motor strength in the deltoid and biceps: Normal right side. Normal Left side Motor strength biceps and the wrist extensors: Normal right side . Normal left side Motor strength in the triceps muscle: Normal right side. Normal left side Deep tendon reflexes: Normal at the biceps. Normal at Brachioradialis. Normal at triceps Vertebral body tenderness to deep palpation over Cervical facet loading test: positive bilaterally Spurling test: positive bilaterally Neck distraction test: positive bila terally Benigno sign: positive bilaterally Lumbar spine +Incisional scar intact Motor strength lower extremities ,thigh and legs 5/5 Right side , 5/5 Left side Deep tendon reflexes : Normal Knee Jerk. Normal Ankle Jerk Vertebral body tenderness over Parsons Test positive BL L5-S1 Lumbar facet Loading Test: positive Right / positive Left Range of motion of the lumbar spine Flexion 30 degrees, extension 10 degrees Straight Leg Raise test: Left/ Right positive at <30 degrees Kristy test: positive right / positive left. Severe tenderness over the Sacroiliac joint on the Right / Left sides Gaenslen test: positive bilaterally Seated flexion test: positive bilaterally. Sacral spine : Severe tenderness over the Sacroiliac joint: right side / left side Range of motion: Flexion of the lumbar spine <60 degrees Range of motion: Extension of the lumbar spine <20 degrees Gaenslen's Test positive Kristy test: positive right side / left side Thigh Thrust Test Sacral Thrust Test Imaging: MRI noncontrast of the lumbar spine from 08/08/22 reviewed Assessment/ Plan : Post laminectomy syndrome Recommendation of medication management. [place] 7.5/325mg #60 w 1 RF Use, side effects, adverse reactions, safe storage discussed. Opiate/ narcotic agreement signed 05/11/23. Behavioral script and referral information to Dr Obregon provided for SCS trial though pt has disinterest at this time. All questions answered. I have spent greater than 30 minutes on patient care today. Dr Myrick was available by phone for the evaluation of this patient. The time was used to review the medical records including relevant urine studies and Prescription history (MAPs), review of the available imaging, evaluation and examination of the patient, coordination of care with the medical staff and if applicable referring physicians, as well as creation of the medical record - Pain Location Bilateral Lower Back Non-Pharmacological Interventions: Inactivity, Position/Reposition, TENS Unit Pharmacological Interventions: Scheduled Medication PQRS Narrative: Smoking Status Former smoker Narcotic Agreement Date Signed 05/11/23 Hx Alcohol Use (MH) No Home Medications: Ambulatory Orders Losartan Potassium [Cozaar] 100 mg PO HS 06/18/19 Mesalamine [Lialda] 4.8 gm PO HS 06/18/19 DULoxetine HCL [Cymbalta] 60 mg PO HS 09/28/20 Pramipexole [Mirapex] 0.125 mg PO HS 09/28/20 Cyclobenzaprine [Flexeril] 10 mg PO TID PRN #15 tab 03/23/23 Ibuprofen [Motrin] 600 mg PO Q8HR PRN #20 tab 03/23/23 predniSONE 50 mg PO DAILY #5 tab 03/23/23 diazePAM [Valium] 5 mg PO DAILY PRN 1 Days #2 tab 04/02/23 metFORMIN HCL 500 mg PO 04/09/23 HYDROcodone/APAP 7.5-325MG [[place] 7.5-325] 1 tab PO BID PRN 30 Days #60 tab 07/30/23 HYDROcodone/APAP 7.5-325MG [[place] 7.5-325] 1 tab PO BID PRN 30 Days #60 tab 07/30/23 Controlled Substance Measures - Controlled Substance Measures Is patient prescribed a controlled substance at discharge?: Yes When asked, does pt state using other controlled substances?: No If prescribed controlled substance>3 days was MAPS reviewed?: Yes
== END ==
LOC: PNWHC3 08:02
PROVIDERS: ATTEND Specialist
DX: M96.1 Postlaminectomy syndrome, not elsewhere classified (principal); Z87.891 Personal history of nicotine dependence
CPT/HCPCS: 99211

== ENCOUNTER → 2023-10-08 | Outpatient (CLI) | payer BC | LOC: PNWHC3 07:30 | PROVIDERS: ATTEND Specialist | DX: M54.16 Radiculopathy, lumbar region | CPT/HCPCS: 99211 ==

== ENCOUNTER 2023-10-10 17:20 | Emergency (ER) | payer BC ==
[2023-10-10] MEDS ORDERED: KETOROLAC 15 MG/ML 1 ML VIAL ONE (18:14)
[2023-10-10] MEDS ORDERED: LIDOCAINE 4% PATCH TOPICAL ONE (18:14)
[2023-10-10] MEDS ORDERED: tiZANidine 4 MG TAB ONE (18:42)
== END 2023-10-10 20:36 | disposition home or self-care (01) ==
LOC: EC 17:20
DX: M54.9 Dorsalgia, unspecified (principal); F17.200 Nicotine dependence, unspecified, uncomplicated
CPT/HCPCS: 99283; 96372; J1885

== ENCOUNTER → 2023-10-16 | Outpatient (CLI) | payer BC ==
--- NOTE | 2023-11-13 12:02 | XR ---
Patient: Reyes Peguero Ordering Physician: Unknown, Unknown ID: [id number] Phone, Pager: Phone: N/A Pager: N/A : 1985 Age/Gender: 38Y, M Primary Location: N/A Procedure: L-SPINE L5-S1 Study Jr e: 10/16/2023 11:14:00 AM EXAMINATION TYPE: XR lumbar spine 2 or 3V DATE OF EXAM: 10/26/2023 5:01 PM CLINICAL INDICATION: [id number] SPINAL STENOSIS,LUMBAR REGION WITH NEUR. [id number] LUMBAGO WITH SCIATICA LEFT SIDE COMPARISON: MRI 08/08/2022 TECHNIQUE: XR lumbar spine 2 or 3V - Frontal, lateral and coned in L5-S1 lateral views of the spine. FINDINGS: Compression deformity of L1 vertebral body stable from 2022.. No additional evidence of lo ss of vertebral body height is seen. There is normal alignment of the lumbar vertebral bodies. Scatte red disc space narrowing. Multilevel marginal osteophyte formation throughout the visualized spine. T here is facet joint arthropathy throughout the spine. Neural foraminal stenosis at L5-S1 with at leas t moderate stenosis. IMPRESSION: 1. No acute fracture. 2. Moderate multilevel disc degeneration. No neural foraminal stenosis worse at L5-S1. Correlate with MRI. 3. Stable compression deformity to the L1 vertebral body.
== END | disposition home or self-care (01) ==
LOC: RADXRYALE 11:00
PROVIDERS: ATTEND Physician Assistant Medical
DX: M48.062 Spinal stenosis, lumbar region with neurogenic claudication (principal); M51.36 Other intervertebral disc degeneration, lumbar region; M48.061 Spinal stenosis, lumbar region without neurogenic claudication
CPT/HCPCS: 72110

== ENCOUNTER → 2023-12-03 | Outpatient (CLI) | payer BC ==
[2023-12-03 09:36] VITALS: BP 143/100; PULSE 92; RESP 16
--- NOTE | 2023-12-03 14:58 | P.PAINPG ---
PQRS Measure Charge Sheet Comment: HISTORY OF PRESENT ILLNESS: A 38 yr old male presents today w severe and chronic LBP x 5 yrs secondary to L5-S1 post laminectomy/ discectomy/ decompression (2014) syndrome for medication refills. Pt states pain level is provoked at 7 /10 in intensity, constant, localized in the lumbar spine, predominantly axial, sharp in character w occasional shooting pain towards the R groin, thigh and BLEs. Pain is provoked by inactivity and laying supine. Pain is alleviated by PT yrs ago which provoked pain, alternating heat & ice, medications, topicals, repositioning and rest. Interventional procedures include ASHISH L5-S1 x1, BL TFESI L5-S1 x1 Medications include [place] 7.5/325mg #60, Flexeril REVIEW OF ORGAN SYSTEMS: CONSTITUTIONAL: No fevers or chills. No recent weight loss. NEUROLOGICAL: + numbness and tingling along the distal extremities. No seizure disorders or headaches. MUSCULOSKELETAL: + pain PSYCHIATRIC: Denies current depression or suicidal thoughts. Physical Examinations : Constitutional : Cooperative , not in acute distress . Neurologic : Cranial nerve II to XII intact. No focal neurological deficits. Psychiatric : alert & oriented x 3. Matching mood & appropriate affect. Judgment & insight intact. Musculoskeletal : Cervical Spine Motor strength in the deltoid and biceps: Normal right side. Normal Left side Motor strength biceps and the wrist extensors: Normal right side . Normal left side Motor strength in the triceps muscle: Normal right side. Normal left side Deep tendon reflexes: Normal at the biceps. Normal at Brachioradialis. Normal at triceps Vertebral body tenderness to deep palpation over Cervical facet loading test: positive bilaterally Spurling test: positive bilaterally Neck distraction test: positive bilaterally Benigno sign: positive bilaterally Lumbar spine +Incisional scar intact Motor strength lower extremities ,thigh and legs 5/5 Right side , 5/5 Left side Deep tendon reflexes : Normal Knee Jerk. Normal Ankle Jerk Vertebral body tenderness over Parsons Test positive BL L5-S1 Lumbar facet Loading Test: positive Right / positive Left Range of motion of the lumbar spine Flexion 30 degrees, extension 10 degrees Straight Leg Raise test: Left/ Right positive at <30 degrees Kristy test: positive right / positive left. Severe tenderness over the Sacroiliac joint on the Right / Left sides Gaenslen test: positive bilaterally Seated flexion test: positive bilaterally. Sacral spine : Severe tenderness over the Sacroiliac joint: right side / left side Range of motion: Flexion of the lumbar spine <60 degrees Range of motion: Extension of the lumbar spine <20 degrees Gaenslen's Test positive Kristy test: positive right side / left side Thigh Thrust Test Sacral Thrust Test Imaging: MRI noncontrast of the lumbar spine from 08/08/22 reviewed MRI noncontrast of the lumbar spine from 11/10/23 reviewed Assessment/ Plan : L5-S1 Post laminectomy/ discectomy/ decompression syndrome Recommendation of BL MBB L4-L5/ L5-S1 #1 and medication management. Risks, benefits of procedure discussed and pt verbalized understanding. Minimal anesthesia including Fentanyl and Versed if clinically indicated. [place] 7.5/325mg #60 w 1 RF Use, side effects, adverse reactions, safe storage discussed. UDS from 07/02/23 reviewed and consistent. Opiate/ narcotic agreement signed 05/11/23. Will follow up w Orthopedic Surgeon in [facility] for additional treatment options. All questions answered. I have spent greater than 30 minutes on patient care today. Dr Myrick was available by phone for the evaluation of this patient. The time was used to review the medical records including relevant urine studies and Prescription history (MAPs), review of the available imaging, evaluation and examination of the patient, coordination of care with the medical staff and if applicable referring physicians, as well as creation of the medical record PQRS Narrative: Smoking Status Former smoker Narcotic Agreement Date Signed 05/11/23 Hx Alcohol Use (MH) No Home Medications: Ambulatory Orders Losartan Potassium [Cozaar] 100 mg PO HS 06/18/19 Mesalamine [Lialda] 4.8 gm PO HS 06/18/19 DULoxetine HCL [Cymbalta] 60 mg PO HS 09/28/20 Pramipexole [Mirapex] 0.125 mg PO HS 09/28/20 Cyclobenzaprine [Flexeril] 10 mg PO TID PRN #15 tab 03/23/23 Ibuprofen [Motrin] 600 mg PO Q8HR PRN #20 tab 03/23/23 predniSONE 50 mg PO DAILY #5 tab 03/23/23 diazePAM [Valium] 5 mg PO DAILY PRN 1 Days #2 tab 04/02/23 metFORMIN HCL 500 mg PO 04/09/23 HYDROcodone/APAP 7.5-325MG [[place] 7.5-325] 1 tab PO BID PRN 30 Days #60 tab 07/30/23 HYDROcodone/APAP 7.5-325MG [[place] 7.5-325] 1 tab PO BID PRN 30 Days #60 tab 09/10/23 Controlled Substance Measures - Controlled Substance Measures Is patient prescribed a controlled substance at discharge?: Yes When asked, does pt state using other controlled substances?: No If prescribed controlled substance>3 days was MAPS reviewed?: Yes
== END ==
LOC: PNWHC3 07:43
PROVIDERS: ATTEND Specialist
DX: M96.1 Postlaminectomy syndrome, not elsewhere classified (principal); Z98.890 Other specified postprocedural states; Z87.891 Personal history of nicotine dependence
CPT/HCPCS: 99211

== ENCOUNTER 2024-09-06 17:02 | Observation (INO) | payer BC ==
--- NOTE | 2024-09-06 17:58 | ED ---
Male Urogenital HPI - General Chief complaint: Urogenital Stated complaint: urinating blood, back pain Time Seen by Provider: 09/06/24 17:28 Source: patient Mode of arrival: ambulatory Limitations: no limitations - History of Present Illness Initial comments: 39-year-old male with past medical history of chronic back pain on [place]/in a pain contract, ureteral stones with previous intervention who presents emergency department with left-sided flank pain. He reports 3 days ago he started having hematuria. Today the patient developed significant left-sided pain with increased frequency of voiding. Reports that his symptoms feel similar to when he is passing a kidney stone. Patient has had previous intervention by Dr. Guardado but states that typically he is able to pass the stones on his own. He denies issues with his bowel habits. No vomiting. No fevers. No other alleviating, precipitating or modifying factors - Related Data Home Medications Medication Instructions Recorded Confirmed Losartan Potassium [Cozaar] 100 mg PO HS 06/18/19 09/07/24 Mesalamine [Lialda] 4.8 gm PO HS 06/18/19 09/07/24 DULoxetine HCL [Cymbalta] 60 mg PO HS 09/28/20 09/07/24 metFORMIN HCL 500 mg PO BID 04/09/23 09/07/24 Cyclobenzaprine [Flexeril] 10 mg PO HS 09/07/24 09/07/24 Gabapentin [Neurontin] 100 mg PO HS 09/07/24 09/07/24 HYDROcodone/APAP 7.5-325MG [[place] 1 tab PO TID PRN 09/07/24 09/07/24 7.5-325] Previous Rx's Medication Instructions Recorded Tamsulosin [Flomax] 0.4 mg PO DAILY #30 cap 09/07/24 Allergies Allergy/AdvReac Type Severity Reaction Status Date / Time No Known Allergies Allergy Verified 09/07/24 15:11 Review of Systems ROS Statement: Those systems with pertinent positive or pertinent negative responses have been documented in the HPI. ROS Other: All systems not noted in ROS Statement are negative. Past Medical History Past Medical History: GERD/Reflux, Hypertension, Sleep Apnea/CPAP/BIPAP Additional Past Medical History / Comment(s): DOES NOT USE CPAP. CHRONIC LOWER BACK PAIN, WITH SCIATIC NERVE PAIN. colitis, DDD, Left eye injury, kidney stones History of Any Multi-Drug Resistant Organisms: None Reported Past Surgical History: Orthopedic Surgery Additional Past Surgical History / Comment(s): neck fusion, lower back surgery, wrist surgery-cyst removal. right shoulder cyst removal, left arm sharpnel removal.kidney surgery Past Anesthesia/Blood Transfusion Reactions: No Reported Reaction Additional Past Anesthesia/Blood Transfusion Reaction / Comment(s): HAS NEVER HAD ANESTHESIA Past Psychological History: No Psychological Hx Reported Smoking Status: Current every day smoker - Past Family History Mother Family Medical History: No Reported History General Exam Limitations: no limitations General appearance: alert, in distress Head exam: Present: atraumatic, normocephalic, normal inspection Eye exam: Present: normal appearance, PERRL, EOMI. Absent: scleral icterus, conjunctival injection, periorbital swelling ENT exam: Present: normal exam, mucous membranes moist Neck exam: Present: normal inspection. Absent: tenderness, meningismus, lymphadenopathy Respiratory exam: Present: normal lung sounds bilaterally. Absent: respiratory distress, wheezes, rales, rhonchi, stridor Cardiovascular Exam: Present: regular rate, normal rhythm, normal heart sounds. Absent: systolic murmur, diastolic murmur, rubs, gallop, clicks GI/Abdominal exam: Present: soft, normal bowel sounds. Absent: distended, tenderness, guarding, rebound, rigid Extremities exam: Present: normal inspection, full ROM, normal capillary refill. Absent: tenderness, pedal edema, joint swelling, calf tenderness Back exam: Present: normal inspection Neurological exam: Present: alert, oriented X3, CN II-XII intact Psychiatric exam: Present: normal affect, normal mood Skin exam: Present: warm, dry, intact, normal color. Absent: rash Course Vital Signs 09/06/24 09/06/24 09/07/24 17:26 21:16 06:23 Temperature 98.1 F 98.9 F Pulse Rate 97 94 73 Respiratory 20 20 18 Rate Blood Pressure 164/112 127/93 117/78 O2 Sat by Pulse 98 95 97 Oximetry 09/07/24 08:00 Temperature 98.6 F Pulse Rate Respiratory 14 Rate Blood Pressure O2 Sat by Pulse 95 Oximetry Medical Decision Making - Medical Decision Making Was pt. sent in by a medical professional or institution (, PA, PERSONAL BANKING REPRESENTATIVE, urgent care, hospital, or fpc...) When possible be specific @ -No Did you speak to anyone other than the patient for history (EMS, parent, family, police, friend...)? What history was obtained from this source @ -No Did you review nursing and triage notes (agree or disagree)? Why? @ -I reviewed and agree with nursing and triage notes Were old charts reviewed (outside hosp., previous admission, EMS record, old EKG, old radiological studies, urgent care reports/EKG's, fpc records)? Report findings @ -No old charts were reviewed Differential Diagnosis (chest pain, altered mental status, abdominal pain women, abdominal pain men, vaginal bleeding, weakness, fever, dyspnea, syncope, headache, dizziness, GI bleed, back pain, seizure, CVA, palpatations, mental health, musculoskeletal)? @ -Differential Abdominal Pain Men: Appendicitis, cholecystitis, diverticulosis, ischemic bowel, pancreatitis, hepatitis, UTI, gastroenteritis, AAA, incarcerated hernia, bowel obstruction, constipation, inflammatory bowel, hepatitis, peptic ulcer disease, splenic infarction, perforated viscus, testicular torsion, this is not meant to be an all-inclusive list EKG interpreted by me (3pts min.). @ -Not done X-rays interpreted by me (1pt min.). @ -Yes which demonstrates no acute process CT interpreted by me (1pt min.). @ -Yes which demonstrates left-sided ureteral stone U/S interpreted by me (1pt. min.). @ -None done What testing was considered but not performed or refused? (CT, X-rays, U/S, labs)? Why? @ -None What meds were considered but not given or refused? Why? @ -None Did you discuss the management of the patient with other professionals (professionals i.e. , PA, PERSONAL BANKING REPRESENTATIVE, lab, RT, psych nurse, social problems specialist, lawyer real estate, teacher, gifts officer, disease case manager rn)? Give summary @ -Spoke with Dr. Marroquin who agreed to admit the patient Was smoking cessation discussed for >3mins.? @ -No Was critical care preformed (if so, how long)? @ -No Were there social determinants of health that impacted care today? How? (Homelessness, low income, unemployed, alcoholism, drug addiction, transportation, low edu. Level, literacy, decrease access to med. care, long-term, rehab)? @ -No Was there de-escalation of care discussed even if they declined (Discuss DNR or withdrawal of care, Hospice)? DNR status @ -No What co-morbidities impacted this encounter? (DM, HTN, Smoking, COPD, CAD, Cancer, CVA, ARF, Chemo, Hep., AIDS, mental health diagnosis, sleep apnea, morbid obesity)? @ -Chronic back pain, kidney stones Was patient admitted / discharged? Hospital course, mention meds given and route, prescriptions, significant lab abnormalities, going to OR and other pertinent info. @ -Upon arrival patient seen and evaluated in [place] . Thorough history and physical exam was performed. IV was established. Laboratory studies were conducted. CT was performed. Patient was provided with pain and nausea medications as well as IV fluids. Results of the imaging are discussed with patient. He continues to have pain and therefore did provide him with another dose of pain medications. Upon reevaluation patient has had no improvement in his symptoms. Due to intractable pain I did speak with Dr. Guardado who was a greeable to admit the patient. Undiagnosed new problem with uncertain prognosis? @ -No Drug Therapy requiring intensive monitoring for toxicity (Heparin, Nitro, Insulin, Cardizem)? @ -No Were any procedures done? @ -No Diagnosis/symptom? @ -Acute flank pain, acute left ureteral stone with hydronephrosis Acute, or Chronic, or Acute on Chronic? @ -Acute Uncomplicated (without systemic symptoms) or Complicated (systemic symptoms)? @ -Complicated Side effects of treatment? @ -No Exacerbation, Progression, or Severe Exacerbation? @ -No Poses a threat to life or bodily function? How? (Chest pain, [place], PR, pneumonia, PE, COPD, DKA, ARF, appy, cholecystitis, CVA, Diverticulitis, Homicidal, S uicidal, threat to staff... and all critical care pts) @ -No - Lab Data Result diagrams: 09/07/24 06:25 09/07/24 06:25 Lab Results 09/06/24 09/06/24 09/06/24 Range/Units 17:46 18:26 18:26 WBC 6.89 (4.50-10.00) 10*3/uL RBC 5.01 (4.40-5.60) 10*6/uL Hgb 14.4 (13.0-17.0) g/dL Hct 41.7 (39.6-50.0) % MCV 83.2 (80.0-97.0) fL MCH 28.7 (27.0-32.0) pg MCHC 34.5 (32.0-37.0) g/dL Plt Count 214 (140-440) 10*3/uL MPV 9.0 L (9.5-12.2) fL Immature Gran % (Auto) 0.3 % Neutrophils % 47.4 % Lymphocytes % 44.3 % Monocytes % 6.7 % Eosinophils % 0.7 % Basophils % 0.6 % Immature Gran # 0.02 (0.00-0.04) 10*3/uL Neutrophils # 3.27 (1.80-7.70) 10*3/uL Lymphocytes # 3.05 (0.90-5.00) 10*3/uL Monocytes # 0.46 (0.20-1.00) 10*3/uL Eosinophils # 0.05 (0.04-0.35) 10*3/uL Basophils # 0.04 (0.00-0.10) 10*3/uL Sodium 143 (137-145) mmol/L Potassium 4.0 (3.5-5.1) mmol/L Chloride 107 (98-107) mmol/L Carbon Dioxide 24 (22-30) mmol/L Anion Gap 12 mmol/L BUN 12 (9-20) mg/dL Creatinine 1.00 (0.66-1.25) mg/dL Est GFR (CKD-EPI)AfAm >90 (>60 ml/min/1.73 sqM) Est GFR (CKD-EPI)NonAf >90 (>60 ml/min/1.73 sqM) Glucose 103 H (74-99) mg/dL Plasma Lactic Acid Javier (0.7-2.0) mmol/L Calcium 9.5 (8.4-10.2) mg/dL Total Bilirubin 0.7 (0.2-1.3) mg/dL AST 35 (17-59) U/L ALT 36 (4-49) U/L Alkaline Phosphatase 67 (38-126) U/L Total Protein 7.5 (6.3-8.2) g/dL Albumin 4.6 (3.5-5.0) g/dL Lipase 121 (23-300) U/L Urine Color Dark Red Urine Appearance Turbid (Clear) Urine pH 5.5 (5.0-8.0) Ur Specific [place] 1.022 (1.001-1.035) Urine Protein 1+ H (Negative) Urine Glucose (UA) 2+ H (Negative) Urine Ketones Trace H (Negative) Urine Blood Large H (Negative) Urine Nitrite Negative (Negative) Urine Bilirubin Negative (Negative) Urine Urobilinogen <2.0 (<2.0) mg/dL Ur Leukocyte Esterase Small H (Negative) Urine RBC >182 H (0-5) /hpf Urine WBC 34 H (0-5) /hpf Urine Bacteria Few H (None) /hpf 09/06/24 Range/Units 18:26 WBC (4.50-10.00) 10*3/uL RBC (4.40-5.60) 10*6/uL Hgb (13.0-17.0) g/dL Hct (39.6-50.0) % MCV (80.0-97.0) fL MCH (27.0-32.0) pg MCHC (32.0-37.0) g/dL Plt Count (140-440) 10*3/uL MPV (9.5-12.2) fL Immature Gran % (Auto) % Neutrophils % % Lymphocytes % % Monocytes % % Eosinophils % % Basophils % % Immature Gran # (0.00-0.04) 10*3/uL Neutrophils # (1.80-7.70) 10*3/uL Lymphocytes # (0.90-5.00) 10*3/uL Monocytes # (0.20-1.00) 10*3/uL Eosinophils # (0.04-0.35) 10*3/uL Basophils # (0.00-0.10) 10*3/uL Sodium (137-145) mmol/L Potassium (3.5-5.1) mmol/L Chloride (98-107) mmol/L Carbon Dioxide (22-30) mmol/L Anion Gap mmol/L BUN (9-20) mg/dL Creatinine (0.66-1.25) mg/dL Est GFR (CKD-EPI)AfAm (>60 ml/min/1.73 sqM) Est GFR (CKD-EPI)NonAf (>60 ml/min/1.73 sqM) Glucose (74-99) mg/dL Plasma Lactic Acid Javier 1.7 (0.7-2.0) mmol/L Calcium (8.4-10.2) mg/dL Total Bilirubin (0.2-1.3) mg/dL AST (17-59) U/L ALT (4-49) U/L Alkaline Phosphatase (38-126) U/L Total Protein (6.3-8.2) g/dL Albumin (3.5-5.0) g/dL Lipase (23-300) U/L Urine Color Urine Appearance (Clear) Urine pH (5.0-8.0) Ur Specific [place] (1.001-1.035) Urine Protein (Negative) Urine Glucose (UA) (Negative) Urine Ketones (Negative) Urine Blood (Negative) Urine Nitrite (Negative) Urine Bilirubin (Negative) Urine Urobilinogen (<2.0) mg/dL Ur Leukocyte Esterase (Negative) Urine RBC (0-5) /hpf Urine WBC (0-5) /hpf Urine Bacteria (None) /hpf Disposition Clinical Impression: Calculus of ureter, Gross hematuria, Intractable pain Disposition: ADMITTED IP TO THIS [facility] Condition: Good Is patient prescribed a controlled substance at d/c from ED?: No Time of Disposition: 21:14 Decision to Admit Reason: Admit from EC Decision Date: 09/06/24 Decision Time: 21:14
[2024-09-06] MEDS: KETOROLAC 15 MG/ML 1 ML VIAL IVP STA (18:16)
[2024-09-06 18:19] LABS: Bacteria,Urine Few /hpf; Bilirubin,Urine Negative (Negative); Blood,Urine Large (Negative); Color,Urine Dark Red; Glucose,Urine (UA) 2+ (Negative); Ketones,Urine Trace (Negative); Leukocyte Esterase,Urine Small (Negative); Nitrite,Urine Negative (Negative); PH, Urine 5.5 (5.0-8.0); Protein,Urine 1+ (Negative); RBC,Urine >182 /hpf (0-5); Urobilinogen,Urine <2.0 mg/dL (<2.0); WBC,Urine 34 /hpf (0-5)
[2024-09-06] MEDS: ONDANSETRON 4 MG/2 ML VIAL IVP STA (18:19)
[2024-09-06] MEDS: MORPHINE SULFATE 4 MG/ML SYRINGE IVP STA (18:19)
[2024-09-06] MEDS: LACTATED RINGERS 1,000 ML IV ONE (18:20)
[2024-09-06 18:23] LABS: Specific Gravity,Urine 1.022 (1.001-1.035)
[2024-09-06 18:42] LABS: Basophils # (A) 0.04 10*3/uL (0.00-0.10); Basophils % (A) 0.6 %; Eosinophils # (A) 0.05 10*3/uL (0.04-0.35); Eosinophils % (A) 0.7 %; HCT 41.7 % (39.6-50.0); HGB 14.4 g/dL (13.0-17.0); Lymphocytes # (A) 3.05 10*3/uL (0.90-5.00); Lymphocytes % (A) 44.3 %; MCH 28.7 pg (27.0-32.0); MCHC 34.5 g/dL (32.0-37.0); MCV 83.2 fL (80.0-97.0); Monocytes # (A) 0.46 10*3/uL (0.20-1.00); Monocytes % (A) 6.7 %; Neutrophils # (A) 3.27 10*3/uL (1.80-7.70); Neutrophils % (A) 47.4 %; Platelet Count 214 10*3/uL (140-440); RBC 5.01 10*6/uL (4.40-5.60); RDW 14.4 % (11.5-14.5); WBC 6.89 10*3/uL (4.50-10.00)
[2024-09-06 18:52] LABS: ALT 36 U/L (4-49); AST 35 U/L (17-59); African American GFR (CKD) >90 (>60 ml/min/1.73 sqM); Albumin 4.6 g/dL (3.5-5.0); Alkaline Phosphatase 67 U/L (38-126); Anion Gap 12 mmol/L; Blood Urea Nitrogen 12 mg/dL (9-20); Calcium 9.5 mg/dL (8.4-10.2); Carbon Dioxide 24 mmol/L (22-30); Chloride 107 mmol/L (98-107); Glucose 103 mg/dL (74-99); Lipase 121 U/L (23-300); Non-African American GFR(CKD) >90 (>60 ml/min/1.73 sqM); Potassium 4.0 mmol/L (3.5-5.1); Sodium 143 mmol/L (137-145); Total Protein 7.5 g/dL (6.3-8.2)
[2024-09-06] MEDS: HYDROmorphone 1 MG/ML 1 ML SYRINGE IVP STA (19:51)
--- NOTE | 2024-09-06 19:56 | CT ---
EXAMINATION TYPE: CT abdomen pelvis wo con DATE OF EXAM: 09/06/2024 7:15 PM COMPARISON: None. CLINICAL INDICATION: Male, 39 years old with history of abdominal pain, abdominal pain, history of ki dney stones, blood in urine TECHNIQUE: Axial images were obtained from above the diaphragm to the pubic rami in the axial plane a t 5 mm thick sections. Reconstructed images are reviewed on the computer in the coronal plane. CONTRAST: mL of . Study performed without Oral Contrast DLP: 1148.4 mGycm, Automated exposure control for dose reduction was used. FINDINGS: Limited CT sections are obtained the lung bases. The lung bases are clear. CT ABDOMEN: Liver: Normal Spleen: Normal Pancreas: Normal Adrenal glands: The adrenal glands are normal. Gallbladder: Cholelithiasis Kidneys: No masses are evident. No hydronephrosis is present. No cysts are present. There are punc roach nonobstructing renal stones within the right kidney. There is an extrarenal pelvis on the left. There is mild left hydroureter. Within the mid left hemipelvis may 0.4 cm renal stone may be present. There is a second calcification which may be ureteral stone measuring 0.4 cm. Phlebolith could be wi thin the differential Aorta: Vascular calcification is within the aorta. Inferior vena cava: Normal. CT PELVIS: Loops of bowel within the abdomen and pelvis are normal. The study is without oral contrast limit ing bowel evaluation Appendix: Normal as visualized. Urinary bladder: Decompressed with limited evaluation Genitourinary structures: Prostate is prominent Osseous structures: No suspicious lytic or sclerotic lesions. Postsurgical changes in the lumbosacral spine IMPRESSION: 1. One or 2 partially obstructing left hemipelvis ureteral stones with mild left hydroureter. 2. Nonobstructing right renal stones. 3. Cholelithiasis [facility], , 09/06/2024 7:54 PM
[2024-09-06] MEDS ORDERED: NALOXONE 0.4 MG/ML 1 ML VIAL IV PRN (21:14)
[2024-09-06] MEDS: cefTRIAXone IN SWFI 1,000 MG/10 ML SYRINGE IVP STA (21:47)
[2024-09-06] MEDS: TAMSULOSIN 0.4 MG CAP.ER.24H PO STA (21:48)
[2024-09-06] MEDS: SODIUM CHLORIDE 0.9% 1,000 ML IV SCH (21:48)
--- NOTE | 2024-09-06 22:21 | XR ---
EXAMINATION TYPE: XR KUB DATE OF EXAM: 09/06/2024 9:23 PM COMPARISON: 12/13/2019 CLINICAL INDICATION: Male, 39 years old with history of ureteral stone(s), TECHNIQUE: XR KUB view(s) obtained. FINDINGS: Nonspecific bowel gas is present. Some air-fluid levels within small bowel loops and within the epiga stric region and left upper quadrant. Air and some fecal debris is within the ascending colon region. No free air is evident. No differential air-fluid levels are present. Psoas margins are normal. No organomegaly is present. Postsurgical changes are within the lumbosacral spine IMPRESSION: 1. Nonspecific abdomen. [facility], , 09/06/2024 10:19 PM
[2024-09-06] MEDS: HYDROmorphone 1 MG/ML 1 ML SYRINGE IVP PRN (22:45)
[2024-09-07 06:51] LABS: Basophils # (A) 0.03 10*3/uL (0.00-0.10); Basophils % (A) 0.6 %; Eosinophils # (A) 0.09 10*3/uL (0.04-0.35); Eosinophils % (A) 1.7 %; HCT 36.1 % (39.6-50.0); HGB 12.2 g/dL (13.0-17.0); Lymphocytes # (A) 2.62 10*3/uL (0.90-5.00); Lymphocytes % (A) 48.3 %; MCH 28.7 pg (27.0-32.0); MCHC 33.8 g/dL (32.0-37.0); MCV 84.9 fL (80.0-97.0); Monocytes # (A) 0.38 10*3/uL (0.20-1.00); Monocytes % (A) 7.0 %; Neutrophils # (A) 2.29 10*3/uL (1.80-7.70); Neutrophils % (A) 42.2 %; Platelet Count 173 10*3/uL (140-440); RBC 4.25 10*6/uL (4.40-5.60); RDW 14.4 % (11.5-14.5); WBC 5.42 10*3/uL (4.50-10.00)
[2024-09-07 07:11] LABS: African American GFR (CKD) >90 (>60 ml/min/1.73 sqM); Anion Gap 6 mmol/L; Blood Urea Nitrogen 15 mg/dL (9-20); Calcium 8.7 mg/dL (8.4-10.2); Carbon Dioxide 25 mmol/L (22-30); Chloride 109 mmol/L (98-107); Glucose 89 mg/dL (74-99); Non-African American GFR(CKD) 83 (>60 ml/min/1.73 sqM); Potassium 4.0 mmol/L (3.5-5.1); Sodium 140 mmol/L (137-145)
--- NOTE | 2024-09-07 09:55 | P.GSHP ---
History of Present Illness H&P Date: 09/07/24 Chief Complaint: Left renal colic The patient is a 39-year-old male hospitalized in June 2019 with left renal colic due to a 3 mm left proximal ureteral calculus. He underwent ureteroscopic removal of that calculus along with several small left renal calculi at that time. The calculi were composed of calcium oxalate monohydrate. He now presents with a 3-day history of gross hematuria. Today he developed severe left flank pain and presented to the ER. CT scan showed evidence of mild left hydroureteronephrosis due to 1 or 2 calculi at the level of the iliac vessels, each measuring approximately 4 mm in size. His symptoms could not be controlled in the ER and he was thus admitted. He reports persistent severe left flank pain this morning. - Constitutional Constitutional: Denies chills, Denies fever - Gastrointestinal Gastrointestinal: Reports nausea, Denies vomiting - Genitourinary (Male) Genitourinary: Reports flank pain, Reports hematuria, Reports kidney stones Past Medical History Past Medical History: GERD/Reflux, Hypertension, Sleep Apnea/CPAP/BIPAP Additional Past Medical History / Comment(s): DOES NOT USE CPAP. CHRONIC LOWER BACK PAIN, WITH SCIATIC NERVE PAIN. colitis, DDD, Left eye injury, kidney stones History of Any Multi-Drug Resistant Organisms: None Reported Past Surgical History: Orthopedic Surgery Additional Past Surgical History / Comment(s): neck fusion, lower back surgery, wrist surgery-cyst removal. right shoulder cyst removal, left arm sharpnel removal.kidney surgery Past Anesthesia/Blood Transfusion Reactions: No Reported Reaction Additional Past Anesthesia/Blood Transfusion Reaction / Comment(s): HAS NEVER HAD ANESTHESIA Past Psychological History: No Psychological Hx Reported Smoking Status: Current every day smoker - Past Family History Mother Family Medical History: No Reported History Medications and Allergies Home Medications Medication Instructions Recorded Confirmed Type Losartan Potassium [Cozaar] 100 mg PO HS 06/18/19 09/07/24 History Mesalamine [Lialda] 4.8 gm PO HS 06/18/19 09/07/24 History DULoxetine HCL [Cymbalta] 60 mg PO HS 09/28/20 09/07/24 History metFORMIN HCL 500 mg PO BID 04/09/23 09/07/24 History Cyclobenzaprine [Flexeril] 10 mg PO HS 09/07/24 09/07/24 History Gabapentin [Neurontin] 100 mg PO HS 09/07/24 09/07/24 History HYDROcodone/APAP 7.5-325MG [[place] 1 tab PO TID PRN 09/07/24 09/07/24 History 7.5-325] Allergies Allergy/AdvReac Type Severity Reaction Status Date / Time No Known Allergies Allergy Verified 09/07/24 07:40 Surgical - Exam Vital Signs Temp Pulse Resp BP Pulse Ox 98.1 F 97 20 164/112 98 09/06/24 17:26 09/06/24 17:26 09/06/24 17:26 09/06/24 17:26 09/06/24 17:26 - General well developed, well nourished, moderate distress - Respiratory normal respiratory effort - Abdomen Abdomen: soft, non tender, no guarding, no rigid, no rebound - Genitourinary normal penis with no external lesions, testicles non-tender - Psychiatric oriented to time, oriented to person, oriented to place, speech is normal, memory intact Results - Labs 09/07/24 06:25 09/07/24 06:25 Abnormal Lab Results - Last 24 Hours (Table) 09/06/24 09/06/24 09/06/24 Range/Units 17:46 18:26 18:26 MPV 9.0 L (9.5-12.2) fL Glucose 103 H (74-99) mg/dL Urine Protein 1+ H (Negative) Urine Glucose (UA) 2+ H (Negative) Urine Ketones Trace H (Negative) Urine Blood Large H (Negative) Ur Leukocyte Esterase Small H (Negative) Urine RBC >182 H (0-5) /hpf Urine WBC 34 H (0-5) /hpf Urine Bacteria Few H (None) /hpf Diabetes panel 09/06/24 Range/Units 18:26 Sodium 143 (137-145) mmol/L Potassium 4.0 (3.5-5.1) mmol/L Chloride 107 (98-107) mmol/L Carbon Dioxide 24 (22-30) mmol/L BUN 12 (9-20) mg/dL Creatinine 1.00 (0.66-1.25) mg/dL Glucose 103 H (74-99) mg/dL Calcium 9.5 (8.4-10.2) mg/dL AST 35 (17-59) U/L ALT 36 (4-49) U/L Alkaline Phosphatase 67 (38-126) U/L Total Protein 7.5 (6.3-8.2) g/dL Albumin 4.6 (3.5-5.0) g/dL Calcium panel 09/06/24 Range/Units 18:26 Calcium 9.5 (8.4-10.2) mg/dL Albumin 4.6 (3.5-5.0) g/dL Pituitary panel 09/06/24 Range/Units 18:26 Sodium 143 (137-145) mmol/L Potassium 4.0 (3.5-5.1) mmol/L Chloride 107 (98-107) mmol/L Carbon Dioxide 24 (22-30) mmol/L BUN 12 (9-20) mg/dL Creatinine 1.00 (0.66-1.25) mg/dL Glucose 103 H (74-99) mg/dL Calcium 9.5 (8.4-10.2) mg/dL Adrenal panel 09/06/24 Range/Units 18:26 Sodium 143 (137-145) mmol/L Potassium 4.0 (3.5-5.1) mmol/L Chloride 107 (98-107) mmol/L Carbon Dioxide 24 (22-30) mmol/L BUN 12 (9-20) mg/dL Creatinine 1.00 (0.66-1.25) mg/dL Glucose 103 H (74-99) mg/dL Calcium 9.5 (8.4-10.2) mg/dL Total Bilirubin 0.7 (0.2-1.3) mg/dL AST 35 (17-59) U/L ALT 36 (4-49) U/L Alkaline Phosphatase 67 (38-126) U/L Total Protein 7.5 (6.3-8.2) g/dL Albumin 4.6 (3.5-5.0) g/dL - Imaging Abdominal x-ray: report reviewed, image reviewed CT scan - abdomen: report reviewed, image reviewed Assessment and Plan (1) Calculus of ureter Current Visit: Yes Status: Acute Code(s): N20.1 - CALCULUS OF URETER SNOMED Code(s): 54395497 (2) Hydronephrosis with renal and ureteral calculous obstruction Current Visit: Yes Status: Acute Code(s): N13.2 - HYDRONEPHROSIS WITH RENAL AND URETERAL CALCULOUS OBSTRUCTION SNOMED Code(s): 725010379 Plan: In view of the patient's intractable pain, he will undergo cystoscopy with left ureteral stent insertion to relieve obstruction. He would then require a secondary procedure later this month, at which time the stent will be removed and ureteroscopy with laser lithotripsy will be performed. This has been reviewed with him, and he is agreeable to this approach. He is aware of potential risks, which include anesthesia, bleeding, infection, inability to place a stent, and ureteral injury. Time with Patient: Greater than 30
[2024-09-07] MEDS: KETOROLAC 15 MG/ML 1 ML VIAL IVP PRN (12:39)
[2024-09-07] MEDS: IV FLUID CONTINUATION 1,000 ML IV ONE (14:45)
[2024-09-07 15:01] LABS: Glucose,Whole Blood 87 mg/dL (70-110)
[2024-09-07] MEDS ORDERED: PROPOFOL 10 MG/ML 20 ML VIAL IV ONE (15:35)
[2024-09-07] MEDS ORDERED: DEXMEDETOMIDINE/0.9% NACL(PMX) 400 MCG/100 ML IV ONE (15:35)
[2024-09-07] MEDS ORDERED: fentaNYL (PF) 50 MCG/ML 2 ML AMP ONE (15:35)
[2024-09-07] MEDS ORDERED: MIDAZOLAM 2 MG/2 ML VIAL ONE (15:35)
[2024-09-07] MEDS: ONDANSETRON 4 MG/2 ML VIAL IVP PRN (15:36)
[2024-09-07] MEDS: DEXAMETHASONE SOD PHOSPHATE 4 MG/ML 1 ML VIAL IVP STA (15:37)
--- NOTE | 2024-09-07 16:06 | P.OP ---
Date of Procedure: 09/07/24 Preoperative Diagnosis: Left hydronephrosis secondary to left ureteral calculus Postoperative Diagnosis: Same Procedure(s) Performed: Cystoscopy, left ureteral stent insertion Anesthesia: MAC Surgeon: Thierry Guardado Estimated Blood Loss (ml): 0 IV fluids (ml): 200 Pathology: none sent Condition: stable Disposition: PACU Indications for Procedure: The patient is a 39-year-old male hospitalized in June 2019 with left renal colic due to a 3 mm left proximal ureteral calculus. He underwent ureteroscopic removal of that calculus along with several small left renal calculi at that time. The calculi were composed of calcium oxalate monohydrate. He now presents with a 3-day history of gross hematuria. Today he developed severe left flank pain and presented to the ER. CT scan showed evidence of mild left hydroureteronephrosis due to 1 or 2 calculi at the level of the iliac vessels, each measuring approximately 4 mm in size. His symptoms could not be controlled in the ER and he was thus admitted. He reported persistent severe left flank pain this morning and has elected to undergo placement of a left ureteral stent. Operative Findings: Successful left ureteral stent insertion. Description of Procedure: The patient was taken to the operating room and placed in the dorsolithotomy position, with legs supported in Jaquan stirrups. The external genitalia was prepped and draped sterilely. The 30 lens was used to introduce the 22-Czech Stortz cystoscopic sheath through the urethra and into the bladder under direct vision. The prostatic urethra showed evidence of mild lateral lobe enlargement. Upon entering the bladder, the urine was noted to be clear. The bladder was examined in its entirety. Both ureteral orifices were of normal anatomic location and configuration. No tumors or foreign bodies were seen. A 0.035 inch Glidewire was passed through the cystoscope. The left ureteral orifice was cannulated, and the Glidewire was slowly advanced. Slight resistance was met in the left ureter at the level of the calculus seen on CT scan, but the Glidewire easily passed beyond this and up to the left renal pelvis, where it coiled. A 28 cm, 4.8-Czech double-J ureteral stent was placed over the wire. Proper stent positioning was verified fluoroscopically and endoscopically. The bladder was emptied and the cystoscope removed. The patient tolerated the procedure well and was taken to the recovery room in stable condition.
--- NOTE | 2024-09-07 16:22 | FL ---
EXAMINATION TYPE: FL guidance operating room DATE OF EXAM: 09/07/2024 4:17 PM COMPARISON: Pre Operative Images if available both CT/MRI or plain film CLINICAL INDICATION: Male, 39 years old with history of CYSTO WITH LEFT SIDE URETERAL STENT; TECHNIQUE: FL guidance operating room, multiple fluoroscopic images provided for procedure. DAP: 2.0488 mGym2 Gycm2 uGym2 cGycm2 or equivalent. FINDINGS: Multiple intraoperative fluoroscopic images were taken resulting in ureteral stent placement with sup erior pigtail in appropriate position projecting over the renal pelvis. No immediate intraoperative c omplication. Multilevel degeneration changes throughout the spine. IMPRESSION: 1. No evidence for intraoperative complication. 2. Please see the operative/procedural note for further details. [facility], , 09/07/2024 4:20 PM
[2024-09-08 07:34] VITALS: BP 118/73; PULSE 98; TEMP 97.7
[2024-09-08 07:45] VITALS: RESP 18
--- NOTE | 2024-09-08 11:41 | P.DS ---
Providers Date of admission: 09/06/24 21:16 Expected date of discharge: 09/08/24 Attending physician: Thierry Guardado Primary care physician: Ariel Castellon - Discharge Diagnosis(es) (1) Calculus of ureter Current Visit: Yes Status: Acute (2) Hydronephrosis with renal and ureteral calculous obstruction Current Visit: Yes Status: Acute Hospital Course: The patient is a 39-year-old male who experienced severe left flank pain and presented to the ER. CT scan showed evidence of mild left hydroureteronephrosis due to 1 or 2 calculi at the level of the iliac vessels, each measuring approximately 4 mm in size. His symptoms could not be controlled in the ER and he was thus admitted. He was treated with IV hydration and parenteral analgesics. He underwent cystoscopy with left ureteral stent insertion on September 07, 2024. At the time of discharge, he was afebrile with stable vital signs. He reported hematuria and slight dysuria, along with mild flank discomfort, but overall felt considerably better than he did at the time of admission. Procedures: Cystoscopy, left ureteral stent insertion on September 07, 2024. Patient Condition at Discharge: Good Plan - Discharge Summary New Discharge Prescriptions: New Tamsulosin [Flomax] 0.4 mg PO DAILY #30 cap No Action Mesalamine [Lialda] 4.8 gm PO HS Losartan Potassium [Cozaar] 100 mg PO HS DULoxetine HCL [Cymbalta] 60 mg PO HS Gabapentin [Neurontin] 100 mg PO HS HYDROcodone/APAP 7.5-325MG [[place] 7.5-325] 1 tab PO TID PRN PRN Reason: Pain Cyclobenzaprine [Flexeril] 10 mg PO HS metFORMIN HCL 500 mg PO BID Discharge Medication List Losartan Potassium [Cozaar] 100 mg PO HS 06/18/19 [History] Mesalamine [Lialda] 4.8 gm PO HS 06/18/19 [History] DULoxetine HCL [Cymbalta] 60 mg PO HS 09/28/20 [History] metFORMIN HCL 500 mg PO BID 04/09/23 [History] Cyclobenzaprine [Flexeril] 10 mg PO HS 09/07/24 [History] Gabapentin [Neurontin] 100 mg PO HS 09/07/24 [History] HYDROcodone/APAP 7.5-325MG [[place] 7.5-325] 1 tab PO TID PRN 09/07/24 [History] Tamsulosin [Flomax] 0.4 mg PO DAILY #30 cap 09/07/24 [Rx] Follow up Appointment(s)/Referral(s): Ariel Castellon DO [Primary Care Provider] - 1-2 days Activity/Diet/Wound Care/Special Instructions: Diet and activity as tolerated. Patient will be contacted by Dr. Guardado' office to arrange follow-up. Discharge Disposition: HOME SELF-CARE
== END 2024-09-08 12:54 | disposition home or self-care (01) ==
LOC: EC 17:02 → 6NMEDSUR 21:16 → 1SOBS 09-07 03:26
PROVIDERS: ADMIT Urology; ATTEND Urology
DX: N13.2 Hydronephrosis with renal and ureteral calculous obstruction (principal); K21.9 Gastro-esophageal reflux disease without esophagitis; G47.30 Sleep apnea, unspecified; I10 Essential (primary) hypertension; F17.200 Nicotine dependence, unspecified, uncomplicated; Z79.84 Long term (current) use of oral hypoglycemic drugs; Z87.442 Personal history of urinary calculi; Z79.899 Other long term (current) drug therapy
CPT/HCPCS: 52332; 96375 ×2; 96376 ×2; 96361; 96374 ×2; 99285; 36415; 80053; 80048; 83605; 83690; 85025 ×2; 81001; 87086; 74018; 74176; G0378 ×4; C2625; C1769; J2250; J2270; J1100; J2405 ×2; J0696; J3010; J1171 ×3; J1885 ×2; J2704

== ENCOUNTER 2024-09-16 06:11 | Day surgery (SDC) | payer BC ==
--- NOTE | 2024-09-15 08:46 | P.GSHP ---
History of Present Illness H&P Date: 09/15/24 Chief Complaint: Left renal colic The patient is a 39-year-old male hospitalized in June 2019 with left renal colic due to a 3 mm left proximal ureteral calculus. He underwent ureteroscopic removal of that calculus along with several small left renal calculi at that time. The calculi were composed of calcium oxalate monohydrate. He now presents with a 3-day history of gross hematuria. Earlier this month, he developed severe left flank pain and presented to the ER. CT scan showed evidence of mild left hydroureteronephrosis due to 1 or 2 calculi at the level of the iliac vessels, each measuring approximately 4 mm in size. His symptoms could not be controlled in the ER and he was thus admitted. He underwent left ureteral stent placement, but continues to experience left-sided abdominal pain and hematuria. - Cardiovascular Cardiovascular: Reports high blood pressure - Genitourinary (Male) Genitourinary: Reports as per HPI Past Medical History Past Medical History: GERD/Reflux, Hypertension, Sleep Apnea/CPAP/BIPAP Additional Past Medical History / Comment(s): DOES NOT USE CPAP. CHRONIC LOWER BACK PAIN, WITH SCIATIC NERVE PAIN. colitis, DDD, Left eye injury, kidney stones History of Any Multi-Drug Resistant Organisms: None Reported Past Surgical History: Orthopedic Surgery Additional Past Surgical History / Comment(s): neck fusion, lower back surgery, wrist surgery-cyst removal. right shoulder cyst removal, left arm sharpnel removal.kidney surgery Past Anesthesia/Blood Transfusion Reactions: No Reported Reaction Additional Past Anesthesia/Blood Transfusion Reaction / Comment(s): HAS NEVER HAD ANESTHESIA Past Psychological History: No Psychological Hx Reported Smoking Status: Current every day smoker - Past Family History Mother Family Medical History: No Reported History Medications and Allergies Home Medications Medication Instructions Recorded Confirmed Type Losartan Potassium [Cozaar] 100 mg PO HS 06/18/19 09/07/24 History Mesalamine [Lialda] 4.8 gm PO HS 06/18/19 09/07/24 History DULoxetine HCL [Cymbalta] 60 mg PO HS 09/28/20 09/07/24 History metFORMIN HCL 500 mg PO BID 04/09/23 09/07/24 History Cyclobenzaprine [Flexeril] 10 mg PO HS 09/07/24 09/07/24 History Gabapentin [Neurontin] 100 mg PO HS 09/07/24 09/07/24 History HYDROcodone/APAP 7.5-325MG [[place] 1 tab PO TID PRN 09/07/24 09/07/24 History 7.5-325] Tamsulosin [Flomax] 0.4 mg PO DAILY #30 cap 09/07/24 Rx Allergies Allergy/AdvReac Type Severity Reaction Status Date / Time No Known Allergies Allergy Verified 09/07/24 15:11 Surgical - Exam - General well developed, well nourished, no distress - Respiratory normal respiratory effort - Abdomen Abdomen: soft, non tender, no guarding, no rigid, no rebound - Genitourinary normal penis with no external lesions, testicles non-tender - Psychiatric oriented to time, oriented to person, oriented to place, speech is normal, memory intact Assessment and Plan (1) Calculus of ureter Status: Acute Code(s): N20.1 - CALCULUS OF URETER SNOMED Code(s): 65411409 Plan: Cystoscopy, left ureteral stent removal, left ureteroscopy with Holmium laser lithotripsy and possible stone basketing. The procedure has been reviewed in detail with the patient. He is aware of potential risks, which include anesthesia, bleeding, infection, ureteral injury, and inability to remove the calculus.
[2024-09-15 09:57] VITALS: BMI 34.0
[~2024-09-16 06:11] MED LIST: LIDOCAINE 1% (10MG/ML) FOR IV START INTRADERMA PRN; droPERidol 2.5 MG/ML VIAL IVP ONE
[2024-09-16 07:07] LABS: Glucose,Whole Blood 114 mg/dL (70-110)
[2024-09-16] MEDS: ONDANSETRON 4 MG/2 ML VIAL IVP ONE (07:07)
[2024-09-16] MEDS: LACTATED RINGERS 1,000 ML IV SCH (07:07)
[2024-09-16] MEDS: DEXAMETHASONE SOD PHOSPHATE 4 MG/ML 1 ML VIAL IV ONE (07:07)
[2024-09-16] MEDS: MIDAZOLAM 2 MG/2 ML VIAL IV ONE (07:08)
[2024-09-16] MEDS: fentaNYL (PF) 50 MCG/ML 2 ML AMP IVP PRN (07:08)
[2024-09-16] MEDS: IV FLUID CONTINUATION 1,000 ML IV ONE ×2 (07:22→09:02)
[2024-09-16] MEDS ORDERED: PROPOFOL 10 MG/ML 20 ML VIAL IV ONE (07:25)
[2024-09-16] MEDS ORDERED: fentaNYL (PF) 50 MCG/ML 2 ML AMP ONE (07:25)
[2024-09-16] MEDS ORDERED: LIDOCAINE 1% INJ 10MG/ML (20 ML MDV) ONE (07:25)
[2024-09-16] MEDS ORDERED: SUCCINYLCHOLINE CHLORIDE 200 MG/10 ML VIAL IV ONE (07:25)
[2024-09-16] MEDS ORDERED: MIDAZOLAM 2 MG/2 ML VIAL ONE (07:25)
--- NOTE | 2024-09-16 08:30 | P.OP ---
Date of Procedure: 09/16/24 Preoperative Diagnosis: Left ureteral calculus Postoperative Diagnosis: Same Procedure(s) Performed: Cystoscopy, left ureteral stent removal, left ureteroscopy with Holmium laser lithotripsy and stone basketing Anesthesia: GUSTAVO Surgeon: Thierry Guardado Estimated Blood Loss (ml): 5 IV fluids (ml): 700 Condition: stable Disposition: PACU Indications for Procedure: The patient is a 39-year-old male hospitalized in June 2019 with left renal colic due to a 3 mm left proximal ureteral calculus. He underwent ureteroscopic removal of that calculus along with several small left renal calculi at that time. The calculi were composed of calcium oxalate monohydrate. He now presents with a 3-day history of gross hematuria. Earlier this month, he developed severe left flank pain and presented to the ER. CT scan showed evidence of mild left hydroureteronephrosis due to 1 or 2 calculi at the level of the iliac vessels, each measuring approximately 4 mm in size. His symptoms could not be controlled in the ER and he was thus admitted. He underwent left ureteral stent placement, but continues to experience left-sided abdominal pain and hematuria. Operative Findings: Left distal ureteral calculus, successfully fragmented and removed. Description of Procedure: The patient was taken to the operating room and placed in the dorsolithotomy position, with legs supported in Jaqaun stirrups. The external genitalia was prepped and draped sterilely. The 30 lens was used to introduce the 21-Icelandic Matos cystoscopic sheath through the urethra and into the bladder under direct vision. The prostatic urethra showed evidence of mild lateral lobe enlargement. The bladder was examined in its entirety. No tumors or foreign bodies were seen. The right ureteral orifice appeared normal. Grasping forceps were used to grasp the distal end of the left ureteral stent, which was removed along with the cystoscope. The Matos semirigid ureteroscope was advanced into the bladder under direct vision, and the left ureteral orifice was cannulated. The ureteroscope was slowly advanced up to the calculus. The 272 micron Holmium laser probe was passed through the ureteroscope, and lithotripsy was performed. After fragmenting the calculus, larger fragments were removed using a 1.9 [place] 0 tip nitinol basket. Smaller fragments passed distally into the bladder. The ureteroscope was then advanced up to the proximal ureter. No additional calculi were seen. Pullout ureteroscopy showed no residual calculus fragments within the ureter, and no evidence of ureteral trauma. After removing the ureteroscope, the cystoscope was replaced into the bladder, and calculus fragments were drained from the bladder. These were saved and sent for chemical analysis. The bladder was emptied and the cystoscope removed. The patient tolerated the procedure well and was taken to the recovery room in stable condition. DIOGENES WHALEN Report: Procedure Acuity: Semi-Urgent Stone Size and Location: 4 mm, left distal ureter Ureteral Dilation: No Ureteral Access Sheath Used: No Stone Sent for Analysis: Yes All Stones/Fragments Were Removed with a Basket: Yes Complications: No Preoperative Antibiotics Given: Yes Stent Placed: No Discharge Medications: None
[2024-09-16 08:39] VITALS: TEMP 97.5
[2024-09-16] MEDS: HYDROmorphone 0.5 MG/0.5 ML SYRINGE IVP PRN (08:42)
[2024-09-16 09:26] VITALS: RESP 17
[2024-09-16 09:41] VITALS: BP 107/82; PULSE 98
== END 2024-09-16 09:56 | disposition home or self-care (01) ==
LOC: OR 06:11
PROVIDERS: ATTEND Urology
DX: N13.2 Hydronephrosis with renal and ureteral calculous obstruction (principal); K21.9 Gastro-esophageal reflux disease without esophagitis; E11.9 Type 2 diabetes mellitus without complications; G47.33 Obstructive sleep apnea (adult) (pediatric); I10 Essential (primary) hypertension; F17.210 Nicotine dependence, cigarettes, uncomplicated; M43.26 Fusion of spine, lumbar region; Z87.442 Personal history of urinary calculi; Z98.890 Other specified postprocedural states; Z79.84 Long term (current) use of oral hypoglycemic drugs; Z79.899 Other long term (current) drug therapy
CPT/HCPCS: 82365; 52353; J2250; J0330; J1100; J0690; J2405; J2003; J3010; J2704; J1171